=== PATIENT | male | born 1960 | race Caucasian/White ===

== ENCOUNTER 2019-12-07 21:56 | Emergency (ER) | payer BC, SELFPAY ==
--- NOTE | 2019-12-07 22:03 | XRR_ITS ---
PROCEDURE INFORMATION: Exam: XR Chest, 1 View Exam date and time: 12/07/2019 10:34 PM Age: 59 years old Clinical indication: Shortness of breath; Chest pain; Additional info: Chest pain/neck pain/arm tingling 6 hours, SOB TECHNIQUE: Imaging protocol: XR of the chest Views: 1 view. COMPARISON: No relevant prior studies available. FINDINGS: Lungs: No pneumonia or pulmonary edema. Pleural space: No pleural effusion or pneumothorax. Heart/Mediastinum: The cardiac silhouette is not enlarged when allowing for the portable AP nature of the radiograph and possible epicardial fat pads. Bones/joints: No acute osseous abnormality. XR/XR chest 1V portable [id number] IMPRESSION: No acute abnormality.
--- NOTE | 2019-12-07 22:03 | ECG_ITS ---
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 Measurements Intervals [place] Rate: 88 P: -38 [place]: 159 QRS: 37 QRSD: 105 T: 55 QT: 339 QTc: 411 Interpretive Statements SINUS RHYTHM No previous ECG available for comparison Electronically Signed On 12-08-2019 19:36:49 CDT by Deo Perea M.D. [id number]
[2019-12-07 22:16] LABS: Basophils # 0.1 10^3/uL (0.0-0.1); Basophils % 0.9 %; Eosinophils # 0.2 10^3/uL (0.0-0.8); Eosinophils % 2.4 %; Hematocrit 48.9 % (42.0-52.0); Lymphocytes % 32.4 %; Mean Corpuscular HGB Conc 30.7 g/dL (30.0-36.0); Mean Corpuscular Hemoglobin 29.1 pg (28.0-34.0); Mean Platelet Volume 9.9 fL (7.4-10.4); Monocytes # 0.6 10^3/uL (0.2-0.9); Monocytes % 5.9 %; Neutrophils # 5.38 10^3/uL (1.8-7.7); Neutrophils % 58.1 %; Nucleated Red Blood Cells % 0 %; Platelet Count 270 10^3/cmm (130-400); Red Blood Count 5.15 10^6/uL (4.1-5.3); Red Cell Distribution Width 14.2 % (12.1-15.1); White Blood Count 9.3 10^3/uL (4.0-10.0)
[2019-12-07 22:19] VITALS: BP 171/84; PULSE 89; RESP 16; TEMP 36.6; O2SAT 94; BMI 50.0
--- NOTE | 2019-12-07 22:38 | ED_ITS ---
HPI - Chest Pain General: Chief Complaint: Chest Pain Stated Complaint: CP/neck pain/arm tingling 6 hours; current SOB Time Seen by Provider: 12/07/19 22:23 Source: patient Mode of arrival: ambulatory Limitations: no limitations History of Present Illness: HPI narrative: 59-year-old male states he started having chest pain at 330. Patient states it lasted roughly 1 hour. He states he had some shortness of breath as well. Patient states he still some mild shortness of breath but is not had any chest pain for the last few hours. He denies any vomiting or diarrhea. Denies any worsening or improving factors. Does have a history of high blood pressure. He is not a diabetic. Denies any recent trips. MD complaint: chest pain Associated symptoms: Reports dyspnea; Deny abdominal pain, fever(s), nausea or vomiting Review of Systems Const: Denies: fever(s), chills, body aches or change in appetite Eyes: Denies: blurry vision or eye discomfort ENMT: Denies: throat pain or dental pain Card: Reports: chest pain Resp: Reports: dyspnea GI: Denies: abdominal pain, nausea, vomiting or diarrhea : Denies: dysuria Musc: Denies: neck pain or back pain Skin/Breast: Denies: rash Neuro: Denies: headache(s) Psych: Denies: depression Nba/Lymph: Denies: easy bruising All/Imm: Denies: urticaria Physical Exam Const: COMMON NORMALS: no acute distress and patient oriented x3 NUTRITIONAL APPEARANCE: obese HENMT: COMMON NORMALS: normocephalic and atraumatic HEAD & SCALP: normocephalic and atraumatic Eye: COMMON NORMALS: Equal, round and reactive pupils present and EOMs intact bilaterally PUPIL: Yes Equal, round and reactive pupils present Neck/C-Spine: COMMON NORMALS: full ROM and supple Chest: COMMONS NORMALS: normal inspection of the chest and normal palpation of entire chest wall Resp: COMMON NORMALS: normal respiratory effort, No retractions, No use of accessory muscles and clear to auscultation bilaterally AUSCULTATION: clear to auscultation bilaterally Cardio: COMMON NORMALS: regular rate, regular rhythm and No murmurs present (Cardio) RATE: regular rate RHYTHM: regular rhythm GI: COMMON NORMALS: Normal to inspection, nondistended, normoactive bowel sounds present, Soft to palpation, non-tender and no masses PALPATION: Yes Soft to palpation Extremity: COMMON NORMALS: normal to inspection and full ROM Neuro: COMMON NORMALS: patient oriented x3, moves all extremities and no focal motor deficits Psych: COMMON NORMALS: mental status grossly normal, Normal thought process present and cooperative THOUGHT PROCESS: Normal thought process present Skin: COMMON NORMALS: no rashes or lesions noted and no wounds GENERAL SKIN EXAM: no rashes or lesions noted Course Vital Signs: Vital signs: Vital Signs Temperature 97.9 F 12/07/19 22:19 Pulse Rate 84 12/08/19 00:49 Respiratory Rate 18 12/08/19 00:49 Blood Pressure 153/83 12/08/19 00:49 Pulse Oximetry 98 12/08/19 00:49 MDM - Chest Pain MDM Narrative: Medical decision making narrative: Patient presents here with chest pain that is atypical in nature. He has not had pain since this aftern oon. His initial and repeat troponin showed no change. CT here showed no signs of pulmonary embolism. His EKG here is normal as well. Patient is requesting discharge I feel he is stable for discharge. He is to follow-up to see PCP and likely needs a stress test outpatient. I informed him if he has return of his chest pain he is return to the ER immediately and he understands and agrees to plan. Lab Data: Labs: Lab Results 12/07/19 12/07/19 12/07/19 Range/Units 22:10 22:10 22:10 WBC 9.3 (4.0-10.0) 10^3/ uL RBC 5.15 (4.1-5.3) 10^6/u L Hgb 15.0 (11.7-16.6) g/dL Hct 48.9 (42.0-52.0) % MCV 95.0 H (80-94) fL MCH 29.1 (28.0-34.0) pg MCHC 30.7 (30.0-36.0) g/dL RDW 14.2 (12.1-15.1) % Plt Count 270 (130-400) 10^3/c mm MPV 9.9 (7.4-10.4) fL Neut % (Auto) 58.1 % Lymph % (Auto) 32.4 % [place] % (Auto) 5.9 % Eos % (Auto) 2.4 % Baso % (Auto) 0.9 % Neut # (Auto) 5.38 (1.8-7.7) 10^3/u L Lymph # (Auto) 3.0 (0.8-4.8) 10^3/u L [place] # (Auto) 0.6 (0.2-0.9) 10^3/u L Eos # (Auto) 0.2 (0.0-0.8) 10^3/u L Baso # (Auto) 0.1 (0.0-0.1) 10^3/u L Nucleated RBC % (a uto) 0 % Nucleated RBCs # 0.0 /100WBC D-Dimer (0-0.59) ug/mIFE U Sodium 141 (136-145) mmol/L Potassium 3.4 L (3.5-5.1) mmol/L Chloride 99 (98-107) mmol/L Carbon Dioxide 32 H (22-29) mmol/L Anion Gap 13.4 (5-19) BUN 18 (8-23) mg/dL Creatinine 0.9 (0.7-1.2) mg/dL GFR Calculation 86.1 L (90-130) mL/min Glucose 190 H (65-115) mg/dL Calculated Osmolal ity 294 (285-295) mOsm/k g Calcium 10.1 (8.5-10.5) mg/dL Total Bilirubin 0.3 (0.15-1.2) mg/dL AST 26 (0-40) U/L ALT 28 (0-41) U/L Alkaline Phosphata se 113 (40-130) IU/L Troponin T Baselin e 49 H (0-15) ng/L Troponin T 120 Min ho-chunk (0-15) ng/L Delta Troponin T (0-10) ABS# NT-Pro-B Natriuret Pep (0-125) pg/mL Total Protein 7.0 (6.6-8.7) g/dL Albumin 4.1 (3.5-5.2) g/dL Globulin 2.9 (1.3-4.6) g/dL 12/07/19 12/07/19 12/08/19 Range/Units 22:10 22:10 00:40 WBC (4.0-10.0) 10^3/ uL RBC (4.1-5.3) 10^6/u L Hgb (11.7-16.6) g/dL Hct (42.0-52.0) % MCV (80-94) fL MCH (28.0-34.0) pg MCHC (30.0-36.0) g/dL RDW (12.1-15.1) % Plt Count (130-400) 10^3/c mm MPV (7.4-10.4) fL Neut % (Auto) % Lymph % (Auto) % [place] % (Auto) % Eos % (Auto) % Baso % (Auto) % Neut # (Auto) (1.8-7.7) 10^3/u L Lymph # (Auto) (0.8-4.8) 10^3/u L [place] # (Auto) (0.2-0.9) 10^3/u L Eos # (Auto) (0.0-0.8) 10^3/u L Baso # (Auto) (0.0-0.1) 10^3/u L Nucleated RBC % (a uto) % Nucleated RBCs # /100WBC D-Dimer 0.89 H (0-0.59) ug/mIFE U Sodium (136-145) mmol/L Potassium (3.5-5.1) mmol/L Chloride (98-107) mmol/L Carbon Dioxide (22-29) mmol/L Anion Gap (5-19) BUN (8-23) mg/dL Creatinine (0.7-1.2) mg/dL GFR Calculation (90-130) mL/min Glucose (65-115) mg/dL Calculated Osmolal ity (285-295) mOsm/k g Calcium (8.5-10.5) mg/dL Total Bilirubin (0.15-1.2) mg/dL AST (0-40) U/L ALT (0-41) U/L Alkaline Phosphata se (40-130) IU/L Troponin T Baselin e (0-15) ng/L Troponin T 120 Min ho-chunk 51.71 H (0-15) ng/L Delta Troponin T 2.71 (0-10) ABS# NT-Pro-B Natriuret Pep 100 (0-125) pg/mL Total Protein (6.6-8.7) g/dL Albumin (3.5-5.2) g/dL Globulin (1.3-4.6) g/dL Imaging Data^: CXR: Attestation: I personally reviewed and interpreted this imaging study as follows: My impression: no acute abnormality EKG Data^: EKG 1: Attestation: I personally reviewed and interpreted this EKG as follows: EKG interpretation date: 12/07/19 EKG interpretation time: 22:23 Interpretation: nsr hr [address] or t wave abnormalities qrs 105 qtc 385 EKG 2: Attestation: I personally reviewed and interpreted this EKG as follows: EKG interpretation date: 12/08/19 EKG interpretation time: 00:41 Interpretation: nsr hr [address] or t wave abnormalities qrs 104 qtc 400 Discharge Plan Discharge Patient Disposition: Home Clinical Impression: Chest pain Qualifiers: Chest pain type: unspecified Qualified Code(s): R07.9 - Chest pain, unspecified Condition: Stable Discharge Orders: Discharge Order (Routine); Ordered 12/08/19 Ordered By: Deanna Piña Referrals: Dheeraj Grace MD [Primary Care Provider] - 1-3 days Discharge Diet: Advance as tolerated Discharge Activity: Resume usual activity Patient Instructions: Chest Pain (ED) Coding Level of Care Code ED Triple Valve Mechanic for Chg Fwd Exam Comprehensive
[2019-12-07 22:44] LABS: Alanine Aminotransferase 28 U/L (0-41); Albumin Level 4.1 g/dL (3.5-5.2); Alkaline Phosphatase 113 IU/L (40-130); Anion Gap 13.4 (5-19); Aspartate Amino Transferase 26 U/L (0-40); Blood Urea Nitrogen 18 mg/dL (8-23); Calcium 10.1 mg/dL (8.5-10.5); Carbon Dioxide 32 mmol/L (22-29); Chloride 99 mmol/L (98-107); Creatinine Clr Calc Pharmacy 152.1911; Globulin 2.9 g/dL (1.3-4.6); Glomerular Filtration Rate 86.1 mL/min (90-130); Glucose 190 mg/dL (65-115); Osmolality Calculated 294 mOsm/kg (285-295); Potassium 3.4 mmol/L (3.5-5.1); Sodium 141 mmol/L (136-145); Total Bilirubin 0.3 mg/dL (0.15-1.2)
[2019-12-07 22:46] LABS: Troponin(5th) Baseline 49 ng/L (0-15)
[2019-12-07 22:55] VITALS: BP 177/89; PULSE 84; RESP 17; O2SAT 94
[2019-12-07 22:58] LABS: D Dimer 0.89 ug/mIFEU (0-0.59)
--- NOTE | 2019-12-07 23:04 | CTR_ITS ---
PROCEDURE INFORMATION: Exam: CT Angiography Chest With Contrast Exam date and time: 12/07/2019 11:20 PM Age: 59 years old Clinical indication: Shortness of breath; Chest pain; Additional info: SOB TECHNIQUE: Imaging protocol: Computed tomographic angiography of the chest with intravenous contrast. 3D rendering (Not supervised by radiologist): MIP and/or 3D reconstructed images were created by the technologist. Radiation optimization: All CT scans at this facility use at least one of these dose optimization techniques: automated exposure control; mA and/or kV adjustment per patient size (includes targeted exams where dose is matched to clinical indication); or iterative reconstruction. Contrast material: OMNI 350; Contrast volume: 89 ml; Contrast route: INTRAVENOUS (IV); COMPARISON: CR XR chest 1V portable [id number] 12/07/2019 10:24 PM RADIATION DOSE METRICS: Total DLP (mGy-cm): 750.62 FINDINGS: Pulmonary arteries: The pulmonary arteries are adequately opacified for evaluation to the subsegmental level. There is no filling defect to suggest embolism. Aorta: The aorta is unremarkable. There is no aneurysm. Lungs: Lungs are clear. Pleural space: There is no pleural effusion or pneumothorax. Heart: The heart is unremarkable. There is no pericardial effusion. Lymph nodes: There is no mediastinal or hilar lymphadenopathy. Bones/joints: Bones are unremarkable. Soft tissues: The extrathoracic soft tissues are unremarkable. Other findings: Visible structures in the upper abdomen are unremarkable. CT/CT angio chest PE protcl [id number] IMPRESSION: No pulmonary embolism. Radiation Dose CTDIVOL = (mGy): DLP = 750.62 (mGy-cm)
--- NOTE | 2019-12-07 23:15 | PC.NURSE ---
REPORT GIVEN TO DEANN HOLCOMB ASSUMED CARE.
[2019-12-07 23:30] LABS: NT Pro B Type Natriuretic Pept 100 pg/mL (0-125)
[2019-12-07] MEDS: iohexol 350 mg/mL 100 mL Btl IV (23:49)
--- NOTE | 2019-12-08 00:03 | ECG_ITS ---
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 Measurements Intervals [place] Rate: 75 P: 66 [place]: 186 QRS: 50 QRSD: 104 T: 62 QT: 371 QTc: 417 Interpretive Statements SINUS RHYTHM Compared to ECG 12/07/2019 22:23:34 No significant changes Electronically Signed On 12-08-2019 20:03:34 CDT by Deo Perea M.D. [id number]
[2019-12-08 00:49] VITALS: BP 153/83; PULSE 84; RESP 18; O2SAT 98
[2019-12-08 01:00] LABS: Troponin 5 2HR 51.71 ng/L (0-15); Troponin 5 2HR Delta 2.71 ABS# (0-10)
[2019-12-08 01:11] VITALS: BP 139/70; PULSE 73; RESP 18; O2SAT 96
== END 2019-12-08 01:12 | disposition home or self-care (01) ==
PROVIDERS: Emergency Provider Emergency Medicine; PCP Family Medicine
DX: R07.9 Chest pain, unspecified (principal)
CPT/HCPCS: 12345; 36415; 71045; 71275; 80053; 83880; 84484; 85025; 85378; 93005; 99283; 99284; Q9967

== ENCOUNTER 2020-04-30 17:00 | Inpatient (IN) | payer OTHER, SELFPAY ==
[2020-04-30] VITALS (17 sets, daily range): BP systolic 119–166; BP diastolic 71–106; PULSE 87–154; RESP 12–34; TEMP 36.5–36.6; O2SAT 89–97; BMI 53.6
--- NOTE | 2020-04-30 17:03 | ECG_ITS ---
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 Measurements Intervals [place] Rate: 138 P: [place]: QRS: 40 QRSD: 115 T: 44 QT: 318 QTc: 483 Interpretive Statements ATRIAL FIBRILLATION WITH RAPID VENTRICULAR RESPONSE MODERATE INTRAVENTRICULAR CONDUCTION DELAY [110+ ms QRS DURATION] MODERATE ST DEPRESSION [0.05+ mV ST DEPRESSION] INTERPRETATION BASED ON A DEFAULT AGE OF 40 YEARS Compared to ECG 12/08/2019 00:41:59 Intraventricular conduction delay now present ST (T wave) deviation now present Sinus rhythm no longer present Electronically Signed On 04-30-2020 18:34:38 NEEDLE LOOM OPERATOR HELPER by Minh Bower M.D. [email or web address]/[id number] f
--- NOTE | 2020-04-30 17:03 | XRR_ITS ---
PROCEDURE INFORMATION: Exam: XR Chest, 1 View Exam date and time: 04/30/2020 5:50 PM Age: 59 years old Clinical indication: Chest pain; Additional info: Cp TECHNIQUE: Imaging protocol: XR of the chest Views: 1 view. COMPARISON: CR XR chest 1V portable [id number] 12/07/2019 10:24 PM FINDINGS: Lungs: Under inflated lungs. No focal airspace opacity. Pleural spaces: Unremarkable. No pleural effusion. No pneumothorax. Heart/Mediastinum: Mild cardiac enlargement. Bones/joints: Unremarkable. XR/XR chest 1V portable [id number] IMPRESSION: 1. No acute chest abnormality. 2. No change from comparison 12/07/2019.
--- NOTE | 2020-04-30 17:54 | ED_ITS ---
HPI - Arrhythmia/Palpitations General: Chief Complaint: Arrhythmia/Palpitations Stated Complaint: Back Pain, Tightness in Chest, SOB Time Seen by Provider: 04/30/20 17:47 Source: patient Mode of arrival: ambulatory Limitations: no limitations History of Present Illness: HPI narrative: 59-year-old male states that over the last few days he has noticed increasing swelling in his legs and has had exertional dyspnea. He states he had palpitations as well and he went to see her urgent care and was told that he is in A. fib over there. He has no history of atrial fibrillation. He is A. fib with RVR here with heart rate into the 150s. He states that he feels like he has been gaining lots of weight and is having increasing dyspnea. He denies any chest pain. Denies any vomiting or diarrhea. He denies any cough or fever. Associated symptoms: Deny nausea or vomiting Review of Systems Const: Denies: fever(s), chills, body aches or change in appetite Eyes: Denies: blurry vision or eye discomfort ENMT: Denies: throat pain or dental pain Card: Reports: palpitations and irregular heart rhythm Resp: Reports: dyspnea GI: Denies: abdominal pain, nausea, vomiting or diarrhea : Denies: dysuria Musc: Reports: extremity swelling Skin/Breast: Denies: rash Neuro: Denies: headache(s) Psych: Denies: depression Nba/Lymph: Denies: easy bruising All/Imm: Denies: urticaria PFS ED PFSH: Medical History (Updated 04/30/20 @ 15:22 by TISH Velez) Atrial fibrillation with rapid ventricular response Social History (Updated 04/30/20 @ 17:55 by Cayetano Jim RN) Smoking and tobacco status: former smoker Alcohol intake: never Substance/Drug Use: never Physical Exam Const: COMMON NORMALS: no acute distress, patient oriented x3 and healthy appearing HENMT: COMMON NORMALS: normocephalic and atraumatic HEAD & SCALP: normocephalic and atraumatic Eye: COMMON NORMALS: Equal, round and reactive pupils present and EOMs intact bilaterally PUPIL: Yes Equal, round and reactive pupils present Neck/C-Spine: COMMON NORMALS: full ROM and supple Chest: COMMONS NORMALS: normal inspection of the chest and normal palpation of entire chest wall Resp: COMMON NORMALS: normal respiratory effort, No retractions, No use of accessory muscles and clear to auscultation bilaterally AUSCULTATION: clear to auscultation bilaterally Cardio: COMMON NORMALS: No murmurs present (Cardio) RATE: tachycardic RHYTHM: abnormal rhythm irregularly irregular GI: COMMON NORMALS: Normal to inspection, nondistended, normoactive bowel sounds present, Soft to palpation, non-tender and no masses PALPATION: Yes Soft to palpation Extremity: COMMON NORMALS: normal to inspection and full ROM OTHER: 2+edema to lower ext. Neuro: COMMON NORMALS: patient oriented x3, moves all extremities and no focal motor deficits Psych: COMMON NORMALS: mental status grossly normal, Normal thought process present and cooperative THOUGHT PROCESS: Normal thought process present Skin: COMMON NORMALS: no rashes or lesions noted and no wounds GENERAL SKIN EXAM: no rashes or lesions noted Course Vital Signs: Vital signs: Vital Signs Temperature 97.7 F 04/30/20 17:48 Pulse Rate 112 H 04/30/20 20:29 Respiratory Rate 18 04/30/20 20:29 Blood Pressure 152/104 04/30/20 20:29 Pulse Oximetry 94 04/30/20 20:29 MDM - Arrhythmia/Palpitations MDM Narrative: Medical decision making narrative: Williams presents here with A. maria t with RVR. Patient's required Cardizem drip here. He also has a slightly elevated BNP with edema and was given Lasix. CT shows no signs of pulmonary embolism. Patient's had no chest pain here. I spoke to hospitalist and will admit to the cardiac stepdown unit on Cardizem drip. Lab Data: Labs: Lab Results 04/30/20 04/30/20 04/30/20 Range/Units 18:22 18:22 18:22 WBC 6.1 (4.0-10.0) 10^3/ uL RBC 5.37 H (4.1-5.3) 10^6/u L Hgb 15.0 (11.7-16.6) g/dL Hct 50.1 (42.0-52.0) % MCV 93.3 (80-94) fL MCH 27.9 L (28.0-34.0) pg MCHC 29.9 L (30.0-36.0) g/dL RDW 13.9 (12.1-15.1) % Plt Count 233 (130-400) 10^3/c mm MPV 10.6 H (7.4-10.4) fL Neut % (Auto) 61.8 % Lymph % (Auto) 26.9 % [place] % (Auto) 8.8 % Eos % (Auto) 1.5 % Baso % (Auto) 0.8 % Neut # (Auto) 3.74 (1.8-7.7) 10^3/u L Lymph # (Auto) 1.6 (0.8-4.8) 10^3/u L [place] # (Auto) 0.5 (0.2-0.9) 10^3/u L Eos # (Auto) 0.1 (0.0-0.8) 10^3/u L Baso # (Auto) 0.1 (0.0-0.1) 10^3/u L Nucleated RBC % (a uto) 0 % Nucleated RBCs # 0.0 /100WBC PT Cancelled INR Cancelled D-Dimer Cancelled Sodium Cancelled Potassium Cancelled Chloride Cancelled Carbon Dioxide Cancelled Anion Gap Cancelled BUN Cancelled Creatinine Cancelled GFR Calculation Cancelled Glucose Cancelled Calculated Osmolal ity Cancelled Calcium Cancelled Total Bilirubin Cancelled AST Cancelled ALT Cancelled Alkaline Phosphata se Cancelled Troponin T Baselin e NT-Pro-B Natriuret Pep Cancelled Total Protein Cancelled Albumin Cancelled Globulin Cancelled 04/30/20 04/30/20 04/30/20 Range/Units 18:22 18:47 18:47 WBC (4.0-10.0) 10^3/ uL RBC (4.1-5.3) 10^6/u L Hgb (11.7-16.6) g/dL Hct (42.0-52.0) % MCV (80-94) fL MCH (28.0-34.0) pg MCHC (30.0-36.0) g/dL RDW (12.1-15.1) % Plt Count (130-400) 10^3/c mm MPV (7.4-10.4) fL Neut % (Auto) % Lymph % (Auto) % [place] % (Auto) % Eos % (Auto) % Baso % (Auto) % Neut # (Auto) (1.8-7.7) 10^3/u L Lymph # (Auto) (0.8-4.8) 10^3/u L [place] # (Auto) (0.2-0.9) 10^3/u L Eos # (Auto) (0.0-0.8) 10^3/u L Baso # (Auto) (0.0-0.1) 10^3/u L Nucleated RBC % (a uto) % Nucleated RBCs # /100WBC PT INR D-Dimer Sodium 142 Potassium 3.0 L Chloride 97 L Carbon Dioxide 34 H Anion Gap 14.0 BUN 11 Creatinine 0.7 GFR Calculation 115.0 Glucose 76 Calculated Osmolal ity 292 Calcium 9.6 Total Bilirubin 0.6 AST 37 ALT 31 Alkaline Phosphata se 120 Troponin T Baselin e Cancelled 61 H NT-Pro-B Natriuret Pep 665 H Total Protein 7.0 Albumin 4.1 Globulin 2.9 04/30/20 Range/Units 18:47 WBC (4.0-10.0) 10^3/ uL RBC (4.1-5.3) 10^6/u L Hgb (11.7-16.6) g/dL Hct (42.0-52.0) % MCV (80-94) fL MCH (28.0-34.0) pg MCHC (30.0-36.0) g/dL RDW (12.1-15.1) % Plt Count (130-400) 10^3/c mm MPV (7.4-10.4) fL Neut % (Auto) % Lymph % (Auto) % [place] % (Auto) % Eos % (Auto) % Baso % (Auto) % Neut # (Auto) (1.8-7.7) 10^3/u L Lymph # (Auto) (0.8-4.8) 10^3/u L [place] # (Auto) (0.2-0.9) 10^3/u L Eos # (Auto) (0.0-0.8) 10^3/u L Baso # (Auto) (0.0-0.1) 10^3/u L Nucleated RBC % (a uto) % Nucleated RBCs # /100WBC PT 12.60 INR 0.92 D-Dimer 1.43 H Sodium Potassium Chloride Carbon Dioxide Anion Gap BUN Creatinine GFR Calculation Glucose Calculated Osmolal ity Calcium Total Bilirubin AST ALT Alkaline Phosphata se Troponin T Baselin e NT-Pro-B Natriuret Pep Total Protein Albumin Globulin Imaging Data^: CXR: Attestation: I personally reviewed and interpreted this imaging study as follows: Radiologist's impression: [facility] [place] [address] XRay Report Signed Patient: Williams Ross Unit #: [id number] : 1960 Age/Sex: 59 / M ADM Date: 04/30/20 Loc: ER Room/Bed: Attending Dr: Ordering Provider/Ordering MD: Deanna Piña MD Date of Service: 04/30/20 Procedure(s): XR chest 1V portable [id number] Accession Number(s): [id number] Report Number: [id number] PROCEDURE INFORMATION: Exam: XR Chest, 1 View Exam date and time: 04/30/2020 5:50 PM Age: 59 years old Clinical indication: Chest pain; Additional info: Cp TECHNIQUE: Imaging protocol: XR of the chest Views: 1 view. COMPARISON: CR XR chest 1V portable [id number] 12/07/2019 10:24 PM FINDINGS: Lungs: Under inflated lungs. No focal airspace opacity. Pleural spaces: Unremarkable. No pleural effusion. No pneumothorax. Heart/Mediastinum: Mild cardiac enlargement. Bones/joints: Unremarkable. XR/XR chest 1V portable [id number] IMPRESSION: 1. No acute chest abnormality. 2. No change from comparison 12/07/2019. CT Chest: Attestation: I personally reviewed and interpreted this imaging study as follows: Radiologist's impression: [facility] [address] [place] [address] CT Scan Report Signed Patient: Williams Ross Unit #: [id number] : 1960 Age/Sex: 59 / M ADM Date: 04/30/20 Loc: ER Room/Bed: Attending Dr: Ordering Provider/Ordering MD: Deanna Piña MD Date of Service: 04/30/20 Procedure(s): CT angio chest PE protcl [id number] Accession Number(s): [id number] Report Number: [id number] PROCEDURE INFORMATION: Exam: CT Angiography Chest With Contrast Exam date and time: 04/30/2020 7:40 PM Age: 59 years old Clinical indication: Patient HX: Ble swelling, exertional dyspnea, elev d-dimer, afib, tachy; Additional info: SOB TECHNIQUE: Imaging protocol: Computed tomographic angiography of the chest with contrast. 3D rendering (Not supervised by radiologist): MIP and/or 3D reconstructed images were created by the technologist. Radiation optimization: All CT scans at this facility use at least one of these dose optimization techniques: automated exposure control; mA and/or kV adjustment per patient size (includes targeted exams where dose is matched to clinical indication); or iterative reconstruction. Contrast material: OMNI 350; Contrast volume: 78 ml; Contrast route: INTRAVENOUS (IV); COMPARISON: CT angio chest PE protcl [id number] 12/07/2019 11:34 PM RADIATION DOSE METRICS: Total DLP (mGy-cm): 620.56 FINDINGS: Pulmonary arteries: Normal. No pulmonary emboli. Aorta: Unremarkable. No aortic aneurysm. No aortic dissection. Lungs: Moderate emphysema. No consolidation. Minimal ground-glass foci of the inferior left lower lobe, most likely mild atelectasis. No endobronchial lesion. Pleural spaces: Unremarkable. No pneumothorax. No pleural effusion. Heart: Unremarkable. No cardiomegaly. No pericardial effusion. Lymph nodes: Unremarkable. No enlarged lymph nodes. Bones/joints: Unremarkable. No acute fracture. Soft tissues: Unremarkable. CT/CT angio chest PE protcl [id number] IMPRESSION: 1. Negative for pulmonary embolism. 2. No focal acute pulmonary disease. 3. No significant change from prior on 12/07/2019 other than minimal increase in minor left lower lobe posterior ground-glass foci, subsegmental atelectasis favored. EKG Data^: EKG 1: Attestation: I personally reviewed and interpreted this EKG as follows: EKG interpretation date: 04/30/20 EKG interpretation time: 17:44 Interpretation: afib with rvr hr [address] or t wave abnormalities qrs 115 qtc 339 Other EKG comments: Chest X-Ray 04/30/20 17:03 IMPRESSION: 1. No acute chest abnormality. 2. No change from comparison 12/07/2019. Chest CTA 04/30/20 19:11 IMPRESSION: 1. Negative for pulmonary embolism. 2. No focal acute pulmonary disease. 3. No significant change from prior on 12/07/2019 other than minimal increase in minor left lower lobe posterior ground-glass foci, subsegmental atelectasis favored. Radiation Dose CTDIVOL = (mGy): DLP = 620.56 (mGy-cm) EKG 2: Attestation: I personally reviewed and interpreted this EKG as follows: EKG interpretation date: 04/30/20 EKG interpretation time: 18:10 Interpretation: afib with rvr hr [address] or t wave abnormalities qrs 100 qtc 410 Other EKG comments: Chest X-Ray 04/30/20 17:03 IMPRESSION: 1. No acute chest abnormality. 2. No change from comparison 12/07/2019. Chest CTA 04/30/20 19:11 IMPRESSION: 1. Negative for pulmonary embolism. 2. No focal acute pulmonary disease. 3. No significant change from prior on 12/07/2019 other than minimal increase in minor left lower lobe posterior ground-glass foci, subsegmental atelectasis favored. Radiation Dose CTDIVOL = (mGy): DLP = 620.56 (mGy-cm) Discharge Plan Discharge Prescriptions: No Action ibuprofen [IBU] 400 mg tablet 800 mg PO DAILY@06 RF: 0 Tylenol Arthritis Pain 650 mg Tablet Extended Release 1,950 mg PO DAILY@06 RF: 0 lisinopril-hydrochlorothiazide 20-25 mg tablet 1 tab PO DAILY@06 RF: 0 Dawson Back and Body 500-32.5 mg Tablet 3 tab PO DAILY@06 RF: 0 Coding Level of Care Code ED Patient Access Coordinator for Chg Fwd Exam Comprehensive
[2020-04-30 18:35] LABS: Basophils # 0.1 10^3/uL (0.0-0.1); Basophils % 0.8 %; Eosinophils # 0.1 10^3/uL (0.0-0.8); Eosinophils % 1.5 %; Hematocrit 50.1 % (42.0-52.0); Lymphocytes # 1.6 10^3/uL (0.8-4.8); Lymphocytes % 26.9 %; Mean Corpuscular HGB Conc 29.9 g/dL (30.0-36.0); Mean Corpuscular Hemoglobin 27.9 pg (28.0-34.0); Mean Corpuscular Volume 93.3 fL (80-94); Mean Platelet Volume 10.6 fL (7.4-10.4); Monocytes # 0.5 10^3/uL (0.2-0.9); Monocytes % 8.8 %; Neutrophils # 3.74 10^3/uL (1.8-7.7); Neutrophils % 61.8 %; Nucleated Red Blood Cells % 0 %; Platelet Count 233 10^3/cmm (130-400); Red Blood Count 5.37 10^6/uL (4.1-5.3); Red Cell Distribution Width 13.9 % (12.1-15.1); White Blood Count 6.1 10^3/uL (4.0-10.0)
--- NOTE | 2020-04-30 19:03 | ECG_ITS ---
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 Measurements Intervals [place] Rate: 143 P: VA: QRS: 127 QRSD: 100 T: 2 QT: 327 QTc: 505 Interpretive Statements ATRIAL FIBRILLATION WITH RAPID VENTRICULAR RESPONSE PATTERN CONSISTENT WITH PULMONARY DISEASE POSSIBLE RIGHT VENTRICULAR HYPERTROPHY [SOME/ALL OF: PROMINENT R IN V1, LATE TRANSITION, RAD, GE[place]IE, SSS] POSSIBLE INFERIOR MYOCARDIAL INFARCTION , PROBABLY OLD [30 ms Q WAVE IN II/aVF] Compared to ECG 04/30/2020 17:44:48 Atrial abnormality now present Myocardial infarct finding now present Intraventricular conduction delay no longer present ST (T wave) deviation no longer present Electronically Signed On 04-30-2020 18:39:31 WRAPPER CASER by Minh Bower M.D. [id number]
[2020-04-30 19:04] LABS: INR 0.92 (0.8-1.2)
[2020-04-30 19:07] LABS: D Dimer 1.43 ug/mIFEU (0-0.59)
[2020-04-30 19:09] LABS: Troponin(5th) Baseline 61 ng/L (0-15)
--- NOTE | 2020-04-30 19:11 | CTR_ITS ---
PROCEDURE INFORMATION: Exam: CT Angiography Chest With Contrast Exam date and time: 04/30/2020 7:40 PM Age: 59 years old Clinical indication: Patient HX: Ble swelling, exertional dyspnea, elev d-dimer, afib, tachy; Additional info: SOB TECHNIQUE: Imaging protocol: Computed tomographic angiography of the chest with contrast. 3D rendering (Not supervised by radiologist): MIP and/or 3D reconstructed images were created by the technologist. Radiation optimization: All CT scans at this facility use at least one of these dose optimization techniques: automated exposure control; mA and/or kV adjustment per patient size (includes targeted exams where dose is matched to clinical indication); or iterative reconstruction. Contrast material: OMNI 350; Contrast volume: 78 ml; Contrast route: INTRAVENOUS (IV); COMPARISON: CT angio chest PE protcl [id number] 12/07/2019 11:34 PM RADIATION DOSE METRICS: Total DLP (mGy-cm): 620.56 FINDINGS: Pulmonary arteries: Normal. No pulmonary emboli. Aorta: Unremarkable. No aortic aneurysm. No aortic dissection. Lungs: Moderate emphysema. No consolidation. Minimal ground-glass foci of the inferior left lower lobe, most likely mild atelectasis. No endobronchial lesion. Pleural spaces: Unremarkable. No pneumothorax. No pleural effusion. Heart: Unremarkable. No cardiomegaly. No pericardial effusion. Lymph nodes: Unremarkable. No enlarged lymph nodes. Bones/joints: Unremarkable. No acute fracture. Soft tissues: Unremarkable. CT/CT angio chest PE protcl [id number] IMPRESSION: 1. Negative for pulmonary embolism. 2. No focal acute pulmonary disease. 3. No significant change from prior on 12/07/2019 other than minimal increase in minor left lower lobe posterior ground-glass foci, subsegmental atelectasis favored. Radiation Dose CTDIVOL = (mGy): DLP = 620.56 (mGy-cm)
[2020-04-30 19:25] LABS: Alanine Aminotransferase 31 U/L (0-41); Albumin Level 4.1 g/dL (3.5-5.2); Alkaline Phosphatase 120 IU/L (40-130); Aspartate Amino Transferase 37 U/L (0-40); Blood Urea Nitrogen 11 mg/dL (8-23); Calcium 9.6 mg/dL (8.5-10.5); Carbon Dioxide 34 mmol/L (22-29); Chloride 97 mmol/L (98-107); Globulin 2.9 g/dL (1.3-4.6); Glucose 76 mg/dL (65-115); NT Pro B Type Natriuretic Pept 665 pg/mL (0-125); Osmolality Calculated 292 mOsm/kg (285-295); Sodium 142 mmol/L (136-145); Total Bilirubin 0.6 mg/dL (0.15-1.2)
[2020-04-30] MEDS: FUROsemide 10 mg/mL SDV 4mL 40 MG IVP (19:41)
[2020-04-30] MEDS: iohexol 350 mg/mL 100 mL Btl IV (19:56)
--- NOTE | 2020-04-30 20:45 | PM.HP ---
Providers/Chief Complaint Chief Complaint: Back Pain, Tightness in Chest, SOB History of Present Illness Williams Ross is a 59 year old male who does not have significant past medical history other than hypertension presented today with chief complaint of abdominal bloating and shortness of breath. Creatinine stating that his symptoms started 2 to 3 months ago with swelling of lower extremities, it has gradually gotten worse he has not started Lasix nor seen a physician. He is endorsing orthopnea, PND hypersomnolence in the morning excessive snoring at night, intermittent chest discomfort which she is describing as pressure-like sensation, last episode was 2 days ago when he was working at his desk, that episode lasted for about 30 minutes but relieved with taking Tums. He is endorsing gaining 20 and 30 pounds, is very uncomfortable with abdominal bloating. He has never undergone any screening colonoscopies in the past. No history of CO CHF stroke or cancer. At home he takes medications for his back pain and hypertension. Diagnosis in the ER revealed new onset onset A. fib RVR currently on Cardizem drip running at 15 mg/h initially he was hypertensive blood pressure improved after Cardizem multiple boluses, he was saturating well on room air, no acute respiratory distress I have requested magnesium and TSH level BNP 665 clinical signs of fluid overload potassium 3.0 which I would replete, high D-dimer noted no signs of PE on CTA chest No signs of pneumonia as well Review of Systems Const: Denies: fever(s) or chills Eyes: Denies: change in vision ENMT: Denies: throat pain Card: Reports: chest pain, palpitations, swelling of feet/ankles, dyspnea on exertion and orthopnea Resp: Reports: dyspnea and non-productive cough GI: Reports: early satiety, bloating and GI cramping; Denies: abdominal pain : Denies: flank pain Musc: Reports: muscle cramps Skin/Breast: Reports: new lesions (Excoriation due to excessive scratching) Neuro: Denies: headache(s) or weakness in extremities Psych: Reports: sleeping more; Denies: anxiety Endo: Reports: cold intolerance and hot flashes; Denies: polyuria Nba/Lymph: Denies: easy bruising All/Imm: Denies: urticaria Medications/Allergies Home Medications Medication Instructions Recorded Confirmed Last Taken Type acetaminophen [Tylenol Arthritis 1,950 mg PO DAILY@06 01/31/21 01/31/21 01/31/21 History Pain] aspirin-caffeine [Dawson Back and 3 tab PO DAILY@04/30/20 04/30/20 04/30/20 History Body] ibuprofen 400 mg tablet 800 mg PO DAILY@04/30/20 04/30/20 04/30/20 History lisinopril-hydrochlorothiazide 1 tab PO DAILY@04/30/20 04/30/20 04/30/20 History Allergies Allergy/AdvReac Type Severity Reaction Status Date / Time No Known Allergies Allergy Verified 04/30/20 14:27 PFSH Acute PFSH: Medical History Arthritis Atrial fibrillation with rapid ventricular response Former smoker Hypertension Retained myringotomy tube in left ear Surgical History H/O hernia repair S/P left knee arthroscopy Family History (Updated 04/30/20 @ 21:53 by Barby Villa MD) Mother Cancer Liver cancer Social History Smoking and tobacco status: former smoker Alcohol intake: never Substance/Drug Use: never Vitals/I&O/Wt Last Vital Signs Temp 97.7 F 04/30/20 17:48 Pulse 112 H 04/30/20 20:29 Resp 18 04/30/20 20:29 BP 152/104 04/30/20 20:29 Pulse Ox 94 04/30/20 20:29 04/30/20 04/30/20 04/30/20 06:59 14:59 22:59 Intake Total 6.333 / 6.333 Balance 6.333 / 6.333 Weight last 48 hrs Weight 194.591 kg Physical Exam Narrative: EXAM NARRATIVE: Pleasant middle-age male morbidly obese Saturating well on room air Clinical signs of fluid overload variable S1-S2 No acute respite distress Abdomen bloated soft no signs of peritonitis, nontender Multiple skin excoriation noticed secondary to scratching no signs of cellulitis Low extremity 3+ pitting edema No neurological deficit EOMI, PERRLA GCS 15 No joint swelling Appropriate mood and affect at the bedside Data : 04/30/20 18:22 04/30/20 18:47 A&P Assessment and plan (1) Atrial fibrillation with rapid ventricular response: New onset atrial fibrillation with RVR No ischemic or infarctive changes, troponin noted which most likely are high due to tachyarrhythmia No active chest pain We will check TSH and magnesium level potassium to be repleted Most likely cause of atrial fibrillation is untreated/undiagnosed sleep apnea/obesity hypoventilation Currently on Cardizem drip 50 mg/h [id number] we will start him on Eliquis 5 mg twice a day, my next choice will be digoxin if his heart rate stays above 110, for persistent atrial fibrillation rhythm he might need class Ic or class III antiarrhythmic Status: Acute (2) Hypokalemia: Potassium. Most likely secondary to use of hydrochlorothiazide We will keep him on daily potassium regimen with Lasix Status: Acute (3) New onset of congestive heart failure: New onset CHF Plan echo in the morning no signs of murmur or active CO Likely secondary to untreated sleep apnea and tachyarrhythmia Start him on Lasix 40 mg daily as he is na?ve to Lasix PE ruled out Status: Acute (4) Morbid obesity due to excess calories: Status: Acute (5) Sleep apnea with hypersomnolence: Would recommend outpatient sleep study overnight I would do pulse oximetry study as well Patient has endorse excessive snoring and hypersomnolence in the daytime, is stating he would sleep while having a conversation Status: Acute Additional A&P Information Cardiac diet DVT prophylaxis not indicated Full code Will need outpatient screening colonoscopy as well Attestations Medical Necessity Statement*: Anticipating stay in the hospital cross more than 2 midnights currently need investigation for new onset A. fib RVR and new onset CHF exacerbation, currently on Cardizem drip 15 mg/h Time Spent in Patient Care: (>than 50% of time spent in counselling and/or direct pt care on unit). 50mins Coding Level of Care Code Acute Semiconductor Engineer for Chg Fwd Diagnoses Atrial fibrillation with rapid ventricular response I48.91 Hypokalemia E87.6 New onset of congestive heart failure I50.9 Morbid obesity due to excess calories E66.01 Sleep apnea with hypersomnolence G47.10; G47.30
[2020-04-30 21:16] LABS: Troponin 5 2HR 63.46 ng/L (0-15); Troponin 5 2HR Delta 2.46 ABS# (0-10)
[2020-04-30 21:24] LABS: Magnesium 2.1 mg/dL (1.7-2.3); Thyroid Stimulating Hormone 1.66 uIU/mL (0.27-4.20)
[2020-04-30 22:56] LABS: Estmated Average Glucose 123; Hemoglobin A1C 5.9 % (4.0-6.0)
--- NOTE | 2020-04-30 23:03 | ECG_ITS ---
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 Measurements Intervals [place] Rate: 102 P: -71 VT: 179 QRS: 66 QRSD: 116 T: 83 QT: 383 QTc: 500 Interpretive Statements ATRIAL FIBRILLATION WITH RAPID VENTRICULAR RATE MODERATE INTRAVENTRICULAR CONDUCTION DELAY [110+ ms QRS DURATION] Compared to ECG 04/30/2020 18:10:46 Intraventricular conduction delay now present Myocardial infarct finding no longer present Electronically Signed On 05-01-2020 17:15:11 WINDOWS MOBILE DEVELOPER by Minh Bower M.D. [id number]
[2020-05-01] VITALS (66 sets, daily range): BP systolic 119–157; BP diastolic 65–98; PULSE 70–152; RESP 12–22; TEMP 36.3–36.9; O2SAT 72–95
--- NOTE | 2020-05-01 | CTR_ITS ---
PROCEDURE INFORMATION: Exam: CT Abdomen And Pelvis With Contrast Exam date and time: 05/01/2020 8:33 PM Age: 59 years old Clinical indication: Bloating; Additional info: Distention, dicomfort TECHNIQUE: Imaging protocol: Computed tomography of the abdomen and pelvis with contrast. Radiation optimization: All CT scans at this facility use at least one of these dose optimization techniques: automated exposure control; mA and/or kV adjustment per patient size (includes targeted exams where dose is matched to clinical indication); or iterative reconstruction. Contrast material: OMNI 300; Contrast volume: 95 ml; Contrast route: INTRAVENOUS (IV); COMPARISON: No relevant prior studies available. RADIATION DOSE METRICS: Total DLP (mGy-cm): 1945.99 FINDINGS: Lungs: Bibasilar atelectasis versus infiltrate. Liver: Normal. No mass. Gallbladder and bile ducts: Normal. No calcified stones. No ductal dilation. Pancreas: Normal. No ductal dilation. Spleen: Normal. No splenomegaly. Adrenal glands: Normal. No mass. Kidneys and ureters: Normal. No hydronephrosis. Stomach and bowel: Diverticulosis without diverticulitis. Appendix: No evidence of appendicitis. Intraperitoneal space: Unremarkable. No free air. No significant fluid collection. Vasculature: Unremarkable. No abdominal aortic aneurysm. Lymph nodes: Unremarkable. No enlarged lymph nodes. Urinary bladder: Unremarkable as visualized. Reproductive: Unremarkable as visualized. Bones/joints: Unremarkable. No acute fracture. Soft tissues: Unremarkable. CT/CT abdomen pelvis w con* [id number] IMPRESSION: 1. Negative for acute inflammatory process in the abdomen or pelvis. 2. Bibasilar atelectasis versus infiltrate. 3. Diverticulosis without diverticulitis. Radiation Dose CTDIVOL = (mGy): DLP = 1945.99 (mGy-cm)
[2020-05-01] MEDS: apixaban 5 mg Tablet PO ×3 (02:01→18:19)
[2020-05-01 02:05] LABS: Troponin 5 6HR 62.33 ng/L (0-15); Troponin 5 6HR Delta 1.33 ng/L (0-12)
[2020-05-01] MEDS: potassium chloride ER 20 mEq Tablet 40 MEQ PO (02:08)
[2020-05-01 04:02] LABS: Basophils # 0.1 10^3/uL (0.0-0.1); Basophils % 1.1 %; Eosinophils # 0.1 10^3/uL (0.0-0.8); Eosinophils % 1.7 %; Hematocrit 50.8 % (42.0-52.0); Hemoglobin 14.9 g/dL (11.7-16.6); Lymphocytes # 1.4 10^3/uL (0.8-4.8); Lymphocytes % 18.6 %; Mean Corpuscular HGB Conc 29.3 g/dL (30.0-36.0); Mean Corpuscular Hemoglobin 27.7 pg (28.0-34.0); Mean Corpuscular Volume 94.6 fL (80-94); Mean Platelet Volume 11.1 fL (7.4-10.4); Monocytes # 0.5 10^3/uL (0.2-0.9); Monocytes % 6.5 %; Neutrophils # 5.41 10^3/uL (1.8-7.7); Nucleated Red Blood Cells % 0 %; Platelet Count 249 10^3/cmm (130-400); Red Blood Count 5.37 10^6/uL (4.1-5.3); Red Cell Distribution Width 13.8 % (12.1-15.1); White Blood Count 7.5 10^3/uL (4.0-10.0)
[2020-05-01] MEDS: digoxin 250 mcg/ml INJ 2 mL 500 MCG IVP (04:02)
[2020-05-01 04:21] LABS: Blood Urea Nitrogen 9 mg/dL (8-23); Calcium 9.7 mg/dL (8.5-10.5); Carbon Dioxide 37 mmol/L (22-29); Chloride 97 mmol/L (98-107); Glucose 113 mg/dL (65-115); Osmolality Calculated 297 mOsm/kg (285-295); Sodium 144 mmol/L (136-145)
[2020-05-01 04:26] LABS: Anion Gap 13.2 (5-19); Potassium 3.2 mmol/L (3.5-5.1)
--- NOTE | 2020-05-01 09:21 | PC.CHAP ---
Pastoral Care Encounter/Spiritual Assessment Type of Contact [] Declined loss prevention analyst visit [] Patient/Family/Request visit [] Outpatient visit [] Follow-up visit [] Physician referral [] Code/Alert [x] Routine visit [] Staff referral [] Actively dying [] Patient sleeping [] Family support [] [] Out of room [] Palliative care [] [] Receiving care in room [] Pre-surgical visit [] Trauma [] Long length of stay [] ICU visit [] Other: Relational/Emotional Strength [] Patient feels connected with others/family/visitors/staff [] Distress [] Loneliness/isolation [] Abandonment Spirituality of Patient [] Person of Kiana [] Attends Hindu of their Kiana [] Believes in Prayer [] Reads Bible or Oriental Orthodox materials [] There are Spiritual issues to be addressed Tower Truck Driver Interventions [x] Prayer [x] Active listening [x] Non-anxious presence [x] Spiritual/emotional support [] Crisis/trauma care [] Spiritual counseling [] Bereavement support [] Provided bereavement packet [] Provided Bible/devotional materials [] Provided toy/stuffed animal, coloring book to patient or family member [] Provided Communion [] Anointing/[place] [] Salvation [x] Completed spiritual assessment [] Other: Impact on Illness or Injury [] Angry [] Fearful [] Anxious [] Often cries [] Exhaustion [] Unable to work [] Unable to attend episcopalian [] Unable to walk/stand [] Unable to read [] Unable to drive [] Unable to eat/drink [] Unable to sleep [] Unable to be with family [] Patient intubated [] Other: Summary leg swelling- bloating- and discomfort, patient resting knowing all will be addressed Time spent with patient 10 min
[2020-05-01] MEDS: FUROsemide 40 mg Tablet PO (09:44)
[2020-05-01] MEDS: digoxin 250 mcg Tablet PO (09:45)
[2020-05-01] MEDS: potassium chloride ER 20 mEq Tablet PO (09:45)
[2020-05-01] MEDS: FUROsemide 10 mg/mL SDV 2mL 20 MG IVP (12:26)
[2020-05-01] MEDS: metoprolol tartrate 25 mg Tablet PO ×2 (12:27→19:23)
--- NOTE | 2020-05-01 15:26 | PC.NURSE ---
Lethargy noted Pt has been lethargic, drowsy. 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 Noted SpO2 is at 88% on 3.5 L/nasl cannula. Notified doctor and will order blood gas and pulse oxemtry overnight at hrs of sleeping checks.
[2020-05-01 16:15] LABS: ABG PH Result 7.32 (7.35-7.45); Arterial Blood Gas Hematocrit 45.9 % (42-52); Base Excess ABG 14.8 mmol/L (-2.0-2.0); Blood Gas Allen Test Pos; Blood Gas Sample Site Radial, left; Blood Gas Sample Type Arterial; HCO3 ABG 45.9 mmol/L (22-26); Oxygen Device NC; PO2 ABG 66.7 mmHg (80.0-100.0)
[2020-05-01 16:16] LABS: ABG PCO2 89.9 mmHg (35-45)
--- NOTE | 2020-05-01 16:30 | PC.NURSE ---
Educated pt and regarding the importance of keeping his BIPAP on Instructed pt he needs to keep his BIPAP on especially tonight due to his blood gas result and the doctor order. Re-educated pt and what the BIPAP do to help with his afib w/rvr and chf. pt and verbalizes understanding.
--- NOTE | 2020-05-01 18:11 | XRR_ITS ---
PROCEDURE INFORMATION: Exam: XR Chest, 1 View Exam date and time: 05/01/2020 8:33 PM Age: 59 years old Clinical indication: Pain; Other: Abdominal distention and discomfort; Additional info: Distention, discomfort, no chest complaints TECHNIQUE: Imaging protocol: XR of the chest Views: 1 view. COMPARISON: CR (CHEST, ) 04/30/2020 5:49 PM FINDINGS: Lungs: Minimal patchy left basilar opacities. Pleural spaces: Unremarkable. No pleural effusion. No pneumothorax. Heart/Mediastinum: Cardiomegaly. Bones/joints: No acute fracture. XR/XR chest 1V portable [id number] IMPRESSION: Minimal patchy left basilar atelectasis or other infiltrates.
--- NOTE | 2020-05-01 18:30 | PC.NURSE ---
Hand-off report to night nurse Informed night nurse on order for SpO2 to check at HS and reinforcing the BIPAP use.
[2020-05-01] MEDS: FUROsemide 10 mg/mL SDV 4mL 40 MG IVP (19:08)
--- NOTE | 2020-05-01 19:13 | PC.NURSE ---
Received report from ZHANG Wang. Patient resting in bed with eyes closed. Patient easily aroused to verbal command. Instructed patient on IV Lasix and the need to wear Bipap due to increased pCO2. Patient verbalized complete understanding and is agreeable to wear the bipap over night stating, once I fall asleep I should not have any problem with the mask. Patient denies other needs or complaints. No distress observed.
[2020-05-01] MEDS: dilTIAZem 60 mg Tablet PO ×2 (19:23→22:59)
--- NOTE | 2020-05-01 19:25 | PC.NURSE ---
MED Administration Patient given Metoprolol early with new PO order for Cardizem. Cardizem gtt stopped at this time.
--- NOTE | 2020-05-01 20:42 | P.PN_ITS ---
Subjective Subjective: Interval history: This morning he was feeling little bit better. Denies any chest pain. Time is breathing was more comfortable. Heart rate still somewhat elevated. He states he is been having discussions with his PCP regarding possible sleep apnea and in fact was referred for sleep study but this was denied by insurance. He has been having quite a bit of lower extremity swelling recently. Later in the day today was also having bloating and abdominal discomfort. By nursing staff also noted to be more somnolent, sluggish, slurring of speech. Vitals/I&O/Wt Last Vital Signs Temp 97.5 F L 05/01/20 19:57 Pulse 96 05/01/20 19:57 Resp 14 05/01/20 19:57 BP 146/98 05/01/20 19:57 Pulse Ox 90 05/01/20 19:57 05/01/20 05/01/20 05/01/20 06:59 14:59 22:59 Intake Total 301.25 / 307.583 893.5 / 893.5 167.167 / 1060.667 Output Total 2100 / 2100 1550 / 3650 Balance 301.25 / 307.583 -1206.5 / -1206.5 -1382.833 / -2589.333 Weight last 48 hrs Weight 191.189 kg Weight 194.591 kg Physical Exam Const: COMMON NORMALS: no acute distress and patient oriented x3 NUTRITIONAL APPEARANCE: obese morbidly obese HENMT: COMMON NORMALS: oropharynx normal Neck/C-Spine: COMMON NORMALS: no JVD Resp: COMMON NORMALS: normal respiratory effort and clear to auscultation bilaterally AUSCULTATION: clear to auscultation bilaterally Cardio: COMMON NORMALS: no JVD, regular rhythm, S1 normal heart sound present, S2 normal heart sound present and No murmurs present (Cardio) RHYTHM: regular rhythm HEART SOUNDS: S1 normal heart sound present and S2 normal heart sound present GI: COMMON NORMALS: Normal to inspection, nondistended, normoactive bowel sounds present, Soft to palpation and non-tender PALPATION: Yes Soft to palpation Extremity: COMMON NORMALS: no joint enlargement GENERAL: Yes edema (2-3+ lower extremity edema) Neuro: COMMON NORMALS: patient oriented x3 and moves all extremities Skin: COMMON NORMALS: no rashes or lesions noted GENERAL SKIN EXAM: no rashes or lesions noted Data : 05/01/20 03:40 05/01/20 03:40 A&P Assessment and plan (1) Atrial fibrillation with rapid ventricular response: Atrial fibrillation with RVR, today still requiring 15 mg/h Cardizem drip. This evening down to 10 mg with heart rates in the low 100s. Denies chest pain. Added metoprolol. This evening with improvement in heart rates transition to oral Cardizem. No ischemic or infarctive changes, troponin noted which most likely are high due to tachyarrhythmia. A. fib with VR appears possibly due to hypoxia. Sleep apnea, obesity hypoventilation syndrome. Normal TSH and magnesium level. Potassium to be repleted He has been agreeable to continue on Eliquis. Consider additional assessment by stress testing once he is out of acute episode. Status: Acute (2) Hypokalemia: Receiving replacement. HCTZ on hold for now. Status: Acute (3) New onset of congestive heart failure: New onset CHF Discussed his echocardiogram results from [facility] with his . Normal ejection fraction, diastolic function unfortunately could not be assessed. Suspect diastolic CHF, secondary to combination of A. fib with RVR, TAWANDA, OHS. Continue diuresis. PE ruled out Status: Acute (4) Morbid obesity due to excess calories: Discussed with his that he will benefit from long-term weight loss. Status: Acute (5) Sleep apnea with hypersomnolence: Currently hypoxic and hypercapnic respiratory failure. Hypoxic especially at night, but continued oxygen requirement through the day. Continue diuresis for CHF. Discussed with his also regarding TAWANDA and OHS, with noted hypercapnia today with carbon dioxide of 89. He was more somnolent today, with some slurred speech. Started on BiPAP. I requested overnight oximetry. He would benefit from continued BiPAP with sleep if he is able to tolerate this. Long-term would benefit from weight loss. Repeat attempt for arrangement of sleep study. Consider follow-up with pulmonology. Status: Acute Additional A&P Information Abdominal distention: Today reporting abdominal distention to his nurse. No pain. But discomfort. Abdomen is quite large, and overall may be contributing to his hypoxia. Will assess with obstructive series. Cardiac diet DVT prophylaxis not indicated Full code Will need outpatient screening colonoscopy as well Attestations Medical Necessity Statement*: Continue admission for assessment management of A. fib with RVR, CHF, hypoxic and hypercapnic respiratory failure. Coding Level of Care Code Acute Cobol Programmer for Chg Fwd Diagnoses Atrial fibrillation with rapid ventricular response I48.91 Hypokalemia E87.6 New onset of congestive heart failure I50.9 Morbid obesity due to excess calories E66.01 Sleep apnea with hypersomnolence G47.10; G47.30
--- NOTE | 2020-05-01 22:23 | USCV_ITS ---
Williams Ross Age: 59 Gender: M : 1960 Exam Date: 05/01/2020 06:24 Ordering Phys: Barby Villa MD Technologist: Kristine Dinh Exam Location: [place] Indication: NEW ONSET AFIB BP: 119 / 65 HR: 110 Rhythm: Atrial fibrillation Technical Quality: Technically difficult study MEASUREMENTS (Male / Female) Normal Values 2D ECHO LV Diastolic Diameter PLAX 4.6 cm 4.2 - 5.9 / 3.9 - 5.3 cm LV Systolic Diameter PLAX 2.9 cm LV Chamber Size 6.4 cm IVS Diastolic Thickness 2.1 cm 0.6 - 1.0 / 0.6 - 0.9 cm IVS Systolic Thickness 2.0 cm LVPW Diastolic Thickness 1.2 cm 0.6 - 1.0 / 0.6 - 0.9 cm LVPW Systolic Thickness 1.9 cm RV Chamber Size 3.8 cm LVOT Diameter 2.0 cm LV Ejection Fraction 2D Teich 66.9 % LA Diameter 4.6 cm LA Width 5.0 cm LA Height 6.3 cm RA Width 5.5 cm RA Height 5.5 cm Aorta at Sinotubular Diameter 3.5 cm M-MODE LV Diastolic Diameter MM 5.5 cm 4.2 - 5.9 / 3.9 - 5.3 cm LV Systolic Diameter MM 3.2 cm LV Ejection Fraction MM Teich 71.9 % IVS Diastolic Thickness MM 1.2 cm 0.6 - 1.0 / 0.6 - 0.9 cm IVS Systolic Thickness MM 1.5 cm LVPW Diastolic Thickness MM 1.1 cm 0.6 - 1.0 / 0.6 - 0.9 cm LVPW Systolic Thickness MM 1.7 cm RV Diastolic Diameter MM 3.5 cm Aortic Annulus Diameter 4.8 cm LA Ao Ratio MM 0.9 MV E Point Septal Separation 0.3 cm DOPPLER AV Peak Velocity 108.0 cm/s LVOT Peak Velocity 55.0 cm/s AV Area Cont Eq vti 2.0 cm squared AV Area Cont Eq pk 1.6 cm squared MV E' Velocity 12.0 cm/s TR Peak Velocity 111.0 cm/s TR Peak Gradient 4.9 mmHg Right Atrial Pressure 8.0 mmHg Pulmonary Artery Systolic Pressu 12.9 mmHg PV Peak Velocity 70.0 cm/s RV Acceleration Time 0.1 s RV Ejection Time 0.3 s RV AcT/ET 0.3 FINDINGS Left Ventricle Mildly increased left ventricular cavity size. Normal left ventricular systolic function. Left ventricular ejection fraction is estimated at 55 %. In the presence of atrial fibrillation diastolic function cannot be assessed accurately. Right Ventricle The right ventricle is normal in size and function. Right Atrium The right atrium is normal in size. Left Atrium The left atrium is normal in size. Mitral Valve Mildly thickened mitral valve. Moderate mitral annular calcification. No mitral valve stenosis. No mitral valve regurgitation. Aortic Valve Aortic valve sclerosis without stenosis or regurgitation. Tricuspid Valve Trace to mild tricuspid valve regurgitation. Pulmonic Valve Structurally normal pulmonic valve without significant stenosis. There is no pulmonic regurgitation. Pericardium Normal pericardium without effusion. Aorta Normal ascending aorta dimension. CONCLUSIONS 1-Mildly increased left ventricular cavity size. Normal left ventricular systolic function. Left ventricular ejection fraction is estimated at 55 %. In the presence of atrial fibrillation diastolic function cannot be assessed accurately. 2-No significant valve abnormalities. 3-There is no pericardial effusion. 4-Pulmonary artery systolic pressure is within normal limits. 5-There are no prior echocardiogram studies to compare. Barby Martines MD (Electronically Signed) Final Date: 01 May 2020 18:04 S
[2020-05-01] MEDS: iohexol 300 mg/mL 100 mL Btl IV (22:36)
[2020-05-02] VITALS (18 sets, daily range): BP systolic 125–149; BP diastolic 64–95; PULSE 76–120; RESP 16–26; TEMP 36.3–36.8; O2SAT 16–96
[2020-05-02] MEDS: dilTIAZem 60 mg Tablet PO ×6 (03:19→21:55)
[2020-05-02 04:09] LABS: Alveolar-Arterial Oxygen Gradi 8.4 mmHg (5-10); Arterial Blood Gas Hematocrit 44.8 % (42-52); Base Excess ABG 18.1 mmol/L (-2.0-2.0); Blood Gas Allen Test Pos; Blood Gas Sample Site Radial, right; Blood Gas Sample Type Arterial; Carboxyhemoglobin 0.9 %THgb (0.4-20.1); HCO3 ABG 47.6 mmol/L (22-26); HGB O2 Sat 88.4 % (95-100); Ionized Calcium Level - ABG 1.1 mmol/L (1.1-1.4); Methemoglobin 0.7 % (0.4-1.5); Oxygen Device BIPAP; Oxygen Saturation ABG 89.9; PO2 ABG 59.8 mmHg (80.0-100.0); Potassium Level - ABG 2.9 mmol/L (3.5-5.0); Total Hemoglobin 14.6 g/dL (14-18)
[2020-05-02 04:15] LABS: ABG PCO2 76.9 mmHg (35-45)
[2020-05-02] MEDS: FUROsemide 10 mg/mL SDV 4mL 40 MG IVP ×2 (06:25→18:35)
[2020-05-02 06:46] LABS: Glucose Point of Care 90 mg/dL (70-110)
[2020-05-02 07:22] LABS: Basophils # 0.1 10^3/uL (0.0-0.1); Basophils % 0.9 %; Eosinophils # 0.2 10^3/uL (0.0-0.8); Eosinophils % 1.7 %; Hemoglobin 14.4 g/dL (11.7-16.6); Lymphocytes % 22.7 %; Mean Corpuscular HGB Conc 28.8 g/dL (30.0-36.0); Mean Corpuscular Hemoglobin 27.5 pg (28.0-34.0); Mean Corpuscular Volume 95.4 fL (80-94); Mean Platelet Volume 10.7 fL (7.4-10.4); Monocytes # 0.8 10^3/uL (0.2-0.9); Monocytes % 8.8 %; Neutrophils # 5.66 10^3/uL (1.8-7.7); Neutrophils % 65.8 %; Nucleated Red Blood Cells % 0 %; Platelet Count 231 10^3/cmm (130-400); Red Blood Count 5.24 10^6/uL (4.1-5.3); Red Cell Distribution Width 13.8 % (12.1-15.1); White Blood Count 8.6 10^3/uL (4.0-10.0)
[2020-05-02 07:53] LABS: Albumin Level 3.9 g/dL (3.5-5.2); Alkaline Phosphatase 110 IU/L (40-130); Blood Urea Nitrogen 7 mg/dL (8-23); Calcium 9.1 mg/dL (8.5-10.5); Carbon Dioxide 37 mmol/L (22-29); Chloride 94 mmol/L (98-107); Digoxin 0.8 ng/mL (0.6-1.2); Globulin 2.8 g/dL (1.3-4.6); Glomerular Filtration Rate 137.4 mL/min (90-130); Glucose 102 mg/dL (65-115); Osmolality Calculated 294 mOsm/kg (285-295); Sodium 143 mmol/L (136-145); Total Protein 6.7 g/dL (6.6-8.7)
[2020-05-02 07:55] LABS: Anion Gap 15.4 (5-19); Potassium 3.4 mmol/L (3.5-5.1)
[2020-05-02 07:56] LABS: Alanine Aminotransferase 27 U/L (0-41); Aspartate Amino Transferase 37 U/L (0-40)
[2020-05-02] MEDS: apixaban 5 mg Tablet PO ×2 (09:17→18:35)
[2020-05-02] MEDS: digoxin 250 mcg Tablet PO (09:17)
[2020-05-02] MEDS: metoprolol tartrate 25 mg Tablet PO ×2 (09:18→10:14)
[2020-05-02] MEDS: potassium chloride ER 20 mEq Tablet PO ×2 (09:18→11:43)
--- NOTE | 2020-05-02 10:22 | PM.PN ---
Subjective Subjective: Interval history: He is feeling little bit better. Today he is more awake. He is tolerating BiPAP well currently. Denies chest pain or pressure. No trouble breathing currently. Denies abdominal pain. No vomiting. He has been urinating well. Vitals/I&O/Wt Last Vital Signs Temp 97.6 F 05/02/20 08:00 Pulse 120 H 05/02/20 09:17 Resp 20 H 05/02/20 08:00 BP 125/64 05/02/20 08:00 Pulse Ox 89 L 05/02/20 08:00 05/01/20 05/02/20 05/02/20 22:59 06:59 14:59 Intake Total 287.167 / 1180.667 240 / 1420.667 360 / 360 Output Total 1550 / 3650 1700 / 5350 2100 / 2100 Balance -1262.833 / -2469.333 -1460 / -3929.333 -1740 / -1740 Weight last 48 hrs Weight 191.189 kg Weight 194.591 kg Physical Exam Const: COMMON NORMALS: no acute distress and patient oriented x3 NUTRITIONAL APPEARANCE: obese morbidly obese OTHER: He is awake, perhaps some minimal slowing to speech and movements, although I cannot really detect dysarthria. He is otherwise oriented and appears to have good insight. HENMT: COMMON NORMALS: oropharynx normal Neck/C-Spine: COMMON NORMALS: no JVD Resp: COMMON NORMALS: normal respiratory effort and clear to auscultation bilaterally AUSCULTATION: clear to auscultation bilaterally Cardio: COMMON NORMALS: no JVD, regular rhythm, S1 normal heart sound present, S2 normal heart sound present and No murmurs present (Cardio) RHYTHM: regular rhythm HEART SOUNDS: S1 normal heart sound present and S2 normal heart sound present GI: COMMON NORMALS: Normal to inspection, nondistended, normoactive bowel sounds present, Soft to palpation and non-tender PALPATION: Yes Soft to palpation Extremity: COMMON NORMALS: no joint enlargement GENERAL: Yes edema (2-3+ lower extremity edema) Neuro: COMMON NORMALS: patient oriented x3 and moves all extremities Skin: COMMON NORMALS: no rashes or lesions noted GENERAL SKIN EXAM: no rashes or lesions noted Data : 05/02/20 07:10 05/02/20 07:10 A&P Assessment and plan (1) Atrial fibrillation with rapid ventricular response: Heart rate is little bit better. We did transition over to oral medications yesterday. Will give extra dose potassium. Heart rates still, however, ranging in the 90s-100s, and up to 110-120 especially with exertion. Increase metoprolol dose to 50 mg twice daily. Continue Cardizem. He is also noted digoxin. Digoxin level is therapeutic. No ischemic or infarctive changes, troponin noted which most likely are high due to tachyarrhythmia. A. fib with RVR appears possibly due to hypoxia. Sleep apnea, obesity hypoventilation syndrome. Normal TSH and magnesium level. He has been agreeable to continue on Eliquis. Consider additional assessment by stress testing once he is out of acute episode. Status: Acute (2) New onset of congestive heart failure: New onset CHF diuresing well. -6 L. Extremity edema with some improvement. Reports that recently has been having very difficult time even with the secondary history of vomiting in the car. Request for PT and OT assessment as well. He potentially states could consider going to SNF for rehabilitation prior to returning home. Echo with normal ejection fraction, diastolic function unfortunately could not be assessed. Suspect diastolic CHF, secondary to combination of A. fib with RVR, TAWANDA, OHS. Continue diuresis. Diuretics changed to 40 mg IV Lasix twice daily. PE ruled out Status: Acute (3) Sleep apnea with hypersomnolence: Currently hypoxic and hypercapnic respiratory failure. Significant hypercapnia noted yesterday, 89. Today we will bit better down to 77. He is a little more alert. Still perhaps minimally sluggish speech, movements. Continue BiPAP as tolerating. We will try to see if we can arrange BiPAP for him for after discharge for sleep apnea, OHS with pretty severe symptomatic hypercapnia. Would still benefit from sleep study with titration. Long-term he needs to lose weight. Repeat attempt for arrangement of sleep study. Consider follow-up with pulmonology. Status: Acute (4) Morbid obesity due to excess calories: Would benefit from weight loss. Status: Acute (5) Hypokalemia: Receiving replacement. HCTZ on hold for now. Status: Acute Additional A&P Information Abdominal distention: Better. Slight improvement in edema of lower extremities. Suspect also intra-abdominal/edema. Discussed with him. He said no vomiting so far. Continue diuresis. Abdomen is nontender, soft. Very large at baseline. Difficult to say if some bloating is also present. Bowel sounds are normal. Cardiac diet DVT prophylaxis not indicated Full code Will need outpatient screening colonoscopy as well Attestations Medical Necessity Statement*: Continue admission for optimization of treatment of A. fib with RVR, treatment of CHF, hypercapnic and hypoxic respiratory failure in the setting of morbid obesity. Coding Level of Care Code Acute Parking Officer for Chg Fwd Diagnoses Atrial fibrillation with rapid ventricular response I48.91 New onset of congestive heart failure I50.9 Sleep apnea with hypersomnolence G47.10; G47.30 Morbid obesity due to excess calories E66.01 Hypokalemia E87.6
--- NOTE | 2020-05-02 19:41 | PC.NURSE ---
Received report from Debora Lester RN. Patient resting in bed with bipap in place. Spontaneously arouses with verbal stimuli. Denies pain or needs. No distress observed.
[2020-05-02] MEDS: metoprolol tartrate 50 mg Tablet PO (21:56)
--- NOTE | 2020-05-02 21:57 | PC.NURSE ---
Cluster med administration at patient request. Patient has too remove bipap to take medication.
[2020-05-03] VITALS (12 sets, daily range): BP systolic 132–146; BP diastolic 72–95; PULSE 79–98; RESP 17–26; TEMP 36.2–36.8; O2SAT 90–96
[2020-05-03] MEDS: dilTIAZem 60 mg Tablet PO ×5 (04:05→20:10)
[2020-05-03 04:48] LABS: ABG PH Result 7.43 (7.35-7.45); Alveolar-Arterial Oxygen Gradi 8.7 mmHg (5-10); Arterial Blood Gas Hematocrit 44.1 % (42-52); Base Excess ABG 17.7 mmol/L (-2.0-2.0); Blood Gas Allen Test Pos; Blood Gas Sample Site Radial, right; Blood Gas Sample Type Arterial; Carboxyhemoglobin 1.3 %THgb (0.4-20.1); HCO3 ABG 46.2 mmol/L (22-26); HGB O2 Sat 89.6 % (95-100); Ionized Calcium Level - ABG 1.2 mmol/L (1.1-1.4); Methemoglobin 0.8 % (0.4-1.5); Oxygen Device BIPAP; Oxygen Saturation ABG 91.5; PO2 ABG 63.2 mmHg (80.0-100.0); Total Hemoglobin 14.4 g/dL (14-18)
[2020-05-03 04:49] LABS: ABG PCO2 70.6 mmHg (35-45)
[2020-05-03 05:13] LABS: Basophils # 0.1 10^3/uL (0.0-0.1); Basophils % 1.3 %; Eosinophils # 0.2 10^3/uL (0.0-0.8); Eosinophils % 2.9 %; Hematocrit 47.5 % (42.0-52.0); Hemoglobin 13.8 g/dL (11.7-16.6); Lymphocytes # 1.7 10^3/uL (0.8-4.8); Lymphocytes % 21.8 %; Mean Corpuscular HGB Conc 29.1 g/dL (30.0-36.0); Mean Corpuscular Hemoglobin 27.8 pg (28.0-34.0); Mean Corpuscular Volume 95.8 fL (80-94); Monocytes # 0.8 10^3/uL (0.2-0.9); Monocytes % 9.5 %; Neutrophils # 5.14 10^3/uL (1.8-7.7); Neutrophils % 64.4 %; Nucleated Red Blood Cells % 0 %; Platelet Count 217 10^3/cmm (130-400); Red Blood Count 4.96 10^6/uL (4.1-5.3); Red Cell Distribution Width 13.9 % (12.1-15.1)
[2020-05-03] MEDS: FUROsemide 10 mg/mL SDV 4mL 40 MG IVP ×2 (06:24→17:41)
--- NOTE | 2020-05-03 06:32 | PC.NURSE ---
Patient sitting on side of bed. Medications given as ordered. Discussed Heart Failure care to include weighing self daily and fluid intake. Patient verbalized understanding but will need reinforcement. Denies pain or needs this morning. No distress observed.
[2020-05-03 07:04] LABS: Alanine Aminotransferase 26 U/L (0-41); Albumin Level 3.9 g/dL (3.5-5.2); Alkaline Phosphatase 105 IU/L (40-130); Anion Gap 10.1 (5-19); Aspartate Amino Transferase 31 U/L (0-40); Blood Urea Nitrogen 11 mg/dL (8-23); Calcium 9.2 mg/dL (8.5-10.5); Chloride 92 mmol/L (98-107); Glomerular Filtration Rate 137.4 mL/min (90-130); Glucose 96 mg/dL (65-115); Osmolality Calculated 293 mOsm/kg (285-295); Potassium 3.1 mmol/L (3.5-5.1); Sodium 142 mmol/L (136-145); Total Bilirubin 1.1 mg/dL (0.15-1.2); Total Protein 6.9 g/dL (6.6-8.7)
[2020-05-03 07:05] LABS: Carbon Dioxide 43 mmol/L (22-29)
[2020-05-03] MEDS: potassium chloride ER 20 mEq Tablet PO (10:08)
[2020-05-03] MEDS: digoxin 250 mcg Tablet PO (10:08)
[2020-05-03] MEDS: metoprolol tartrate 50 mg Tablet PO ×2 (10:08→20:10)
[2020-05-03] MEDS: apixaban 5 mg Tablet PO ×2 (10:10→17:41)
--- NOTE | 2020-05-03 10:14 | P.PN_ITS ---
Subjective Subjective: Interval history: He is gradually improving. He worked with physical therapy, and did pretty well. Appears his overall exertion tolerance is improving. States his breathing is gradually improving. Denies chest pain. Still some bloating in his abdomen, however, says he is passing flatus. Had a small bowel movement today. Denies abdominal pain. Vitals/I&O/Wt Last Vital Signs Temp 98 F 05/03/20 04:00 Pulse 81 05/03/20 10:08 Resp 20 H 05/03/20 09:19 BP 138/84 05/03/20 09:00 Pulse Ox 93 05/03/20 09:19 05/02/20 05/03/20 05/03/20 22:59 06:59 14:59 Intake Total 360 / 1080 360 / 360 Output Total 1200 / 3300 750 / 750 Balance -840 / -2220 -390 / -390 Physical Exam Narrative: EXAM NARRATIVE: His is participating in discussion on speaker phone. Const: COMMON NORMALS: no acute distress, patient oriented x3 and alert G ENERAL APPEARANCE: comfortable NUTRITIONAL APPEARANCE: obese morbidly obese ORIENTATION/CONSCIOUSNESS: Yes awake HENMT: COMMON NORMALS: oropharynx normal Neck/C-Spine: COMMON NORMALS: no JVD Resp: COMMON NORMALS: normal respiratory effort and clear to auscultation bilaterally AUSCULTATION: clear to auscultation bilaterally Cardio: COMMON NORMALS: no JVD, regular rhythm, S1 normal heart sound present, S2 normal heart sound present and No murmurs present (Cardio) RHYTHM: regular rhythm HEART SOUNDS: S1 normal heart sound present and S2 normal heart sound present GI: COMMON NORMALS: Normal to inspection, nondistended, normoactive bowel sounds present, Soft to palpation and non-tender PALPATION: Yes Soft to palpation Extremity: COMMON NORMALS: no joint enlargement GENERAL: Yes edema (2-3+ lower extremity edema, improving) Neuro: COMMON NORMALS: patient oriented x3 and moves all extremities SENSORIUM/ORIENTATION: Yes alert Skin: COMMON NORMALS: no rashes or lesions noted GENERAL SKIN EXAM: no rashes or lesions noted Data : 05/03/20 04:24 05/03/20 06:21 A&P Assessment and plan (1) New onset of congestive heart failure: He continues to diurese. He is still requiring supplemental oxygen. Overall his breathing is improving. Lower extremity swelling is gradually decreasing. We will continue IV diuresis at this time. Recently has been having difficulties with mobility including getting in and out of the car. Feels that he did pretty well with physical therapy today. Continue to mobilize. Echo with normal ejection fraction, diastolic function unfortunately could not be assessed. Suspect diastolic CHF, secondary to combination of A. fib with RVR, TAWANDA, OHS. Continue diuresis. Diuretics changed to 40 mg IV Lasix twice daily. PE ruled out Status: Acute (2) Sleep apnea with hypersomnolence: Currently hypoxic and hypercapnic respiratory failure. Significant hypercapnia noted yesterday, 89. Today we will bit better down to 77. He is a little more alert. Still perhaps minimally sluggish speech, movements. Continue BiPAP as tolerating. We will try to see if we can arrange BiPAP for him for after discharge for sleep apnea, OHS with pretty severe symptomatic hypercapnia. Would still benefit from sleep study with titration. Will also request for overnight pulse oximetry. Long-term he needs to lose weight. Repeat attempt for arrangement of sleep study. Consider follow-up with pulmonology. Status: Acute (3) Morbid obesity due to excess calories: Would benefit from weight loss. Status: Acute (4) Atrial fibrillation with rapid ventricular response: Heart rates improved. Currently 80s-90s. He responded well to increase in dose of metoprolol. Continue Cardizem p.o. No ischemic or infarctive changes, troponin noted which most likely are high due to tachyarrhythmia. A. fib with RVR appears possibly due to hypoxia. Sleep apnea, obesity hypoventilation syndrome. Normal TSH and magnesium level. He has been agreeable to continue on Eliquis. Consider additional assessment by stress testing once he is out of acute episode. Status: Acute (5) Hypokalemia: Receiving replacement. HCTZ on hold for now. Status: Acute Additional A&P Information Abdominal distention: Better. Gradually improving. Negative for acute process. We will add bowel regimen for him. He denies any vomiting. He is passing flatus. Had a small bowel movement today. Continue diuresis for CHF. Cardiac diet DVT prophylaxis not indicated Full code Will need outpatient screening colonoscopy as well Attestations Medical Necessity Statement*: Continue admission for assessment management of new CHF, hypercapnic and hypoxic respiratory failure. Coding Level of Care Code Acute Consulting Practice Director for Chg Fwd Diagnoses New onset of congestive heart failure I50.9 Sleep apnea with hypersomnolence G47.10; G47.30 Morbid obesity due to excess calories E66.01 Atrial fibrillation with rapid ventricular response I48.91 Hypokalemia E87.6
[2020-05-03] MEDS: potassium chloride ER 20 mEq Tablet 40 MEQ PO (11:13)
--- NOTE | 2020-05-03 13:20 | PC.OT ---
OT NOTE: OT EVALUATION ORDERS RECEIVED. OT SCREEN COMPLETED. PATIENT DEMONSTRATES NO DEFICITS IN ADL PERFORMANCE. NO FURTHER NEED FOR SKILLED OT REQUIRED.
--- NOTE | 2020-05-03 18:49 | PC.NURSE ---
pt ambulated in halls (on 3 l o2) x 3 today.tolerated quite well.no carver..o2 sats maintained above 90%.c/o constipation this morning.miralax ordered..but pt declined it at 1800.states he has had 3 soft formed bm's today.plan to have cont o2 sat monitoring tonight.
--- NOTE | 2020-05-03 19:38 | PC.NURSE ---
Patient has no complaints at this time. Will monitor.
[2020-05-04] VITALS (10 sets, daily range): BP systolic 109–138; BP diastolic 55–82; PULSE 84–94; RESP 18–24; TEMP 36–36.7; O2SAT 86–96
[2020-05-04] MEDS: dilTIAZem 60 mg Tablet PO ×3 (00:33→08:18)
[2020-05-04] MEDS: FUROsemide 10 mg/mL SDV 4mL 40 MG IVP (05:02)
[2020-05-04 05:41] LABS: Basophils # 0.1 10^3/uL (0.0-0.1); Eosinophils # 0.3 10^3/uL (0.0-0.8); Eosinophils % 3.7 %; Hematocrit 45.9 % (42.0-52.0); Hemoglobin 13.5 g/dL (11.7-16.6); Lymphocytes # 1.8 10^3/uL (0.8-4.8); Lymphocytes % 23.2 %; Mean Corpuscular HGB Conc 29.4 g/dL (30.0-36.0); Mean Corpuscular Hemoglobin 26.9 pg (28.0-34.0); Mean Corpuscular Volume 91.6 fL (80-94); Mean Platelet Volume 10.9 fL (7.4-10.4); Monocytes # 0.6 10^3/uL (0.2-0.9); Monocytes % 8.1 %; Neutrophils # 4.98 10^3/uL (1.8-7.7); Neutrophils % 63.7 %; Nucleated Red Blood Cells % 0 %; Platelet Count 213 10^3/cmm (130-400); Red Blood Count 5.01 10^6/uL (4.1-5.3); Red Cell Distribution Width 13.5 % (12.1-15.1); White Blood Count 7.8 10^3/uL (4.0-10.0)
[2020-05-04 06:08] LABS: Alanine Aminotransferase 23 U/L (0-41); Albumin Level 3.7 g/dL (3.5-5.2); Alkaline Phosphatase 103 IU/L (40-130); Anion Gap 11.3 (5-19); Aspartate Amino Transferase 31 U/L (0-40); Blood Urea Nitrogen 12 mg/dL (8-23); Calcium 9.3 mg/dL (8.5-10.5); Carbon Dioxide 37 mmol/L (22-29); Chloride 95 mmol/L (98-107); Glomerular Filtration Rate 137.4 mL/min (90-130); Glucose 93 mg/dL (65-115); Osmolality Calculated 289 mOsm/kg (285-295); Potassium 3.3 mmol/L (3.5-5.1); Sodium 140 mmol/L (136-145); Total Protein 6.7 g/dL (6.6-8.7)
[2020-05-04] MEDS: digoxin 250 mcg Tablet PO (08:18)
[2020-05-04] MEDS: metoprolol tartrate 50 mg Tablet PO (08:22)
[2020-05-04] MEDS: apixaban 5 mg Tablet PO (08:22)
[2020-05-04] MEDS: potassium chloride ER 20 mEq Tablet PO (08:23)
--- NOTE | 2020-05-04 11:31 | PM.DCS ---
Discharge Providers Date of Admission: 04/30/20 22:23 Date of Discharge: May 04, 2020 Attending Provider at Admission: Barby Villa MD Attending Provider at Discharge: Jt Padron Diagnoses at Discharge Discharge Diagnosis (1) New onset of congestive heart failure: Status: Acute (2) Sleep apnea with hypersomnolence: Status: Acute (3) Morbid obesity due to excess calories: Status: Acute (4) Atrial fibrillation with rapid ventricular response: Status: Acute (5) Hypokalemia: Status: Acute (6) Obesity hypoventilation syndrome: Status: Acute (7) Hypercapnic respiratory failure: Status: Acute Reason for Visit Reason for Visit: Back Pain, Tightness in Chest, SOB Hospital Course Hospital Course Pleasant 59-year-old gentleman with history of arthritis, HTN, morbid obesity, was admitted for assessment management of presenting with shortness of breath, abdominal bloating. He had noted quite significant swelling of lower extremities that had built up over 2-3 months. He noted quite significant limitation to his activity, to the point of having difficult time getting in and out of the car. He had intermittent chest discomfort, but with pressure-like sensation. On presentation he was found to be in new onset congestive heart failure, new onset atrial fibrillation with RVR. His TSH was normal. Wheezing potassium replaced. He was initially treated with Cardizem drip. Subsequently switched over to Cardizem, digoxin, metoprolol was added, and his heart rates became significantly better controlled, and 80s-90s. He has had no chest further chest discomfort. Troponin moderately elevated in the low 60s, without rising trend, thought to be due to arrhythmia and demand ischemia with hypoxia. He was treated with IV Lasix, diuresing quite well, with preserved renal function. He appears to be cumulative negative about 9 L from admission. During the hospitalization he was noted to have episodes of lethargy, slurred speech, on assessment with ABG showing to have quite significant hypercapnia. With morbid obesity this is likely due to obesity hypoventilation syndrome. He does not have history of COPD, and has not had symptoms of any exacerbation. He has been noted hypoxic while in hospital as well, requiring 3 L of oxygen by nasal cannula. Some this may be secondary to CHF exacerbation, although also possible is restrictive lung disease due to obesity. Given quite significant hypercapnia (89, with improvement with BiPAP down to 70), with noted hypercapnic encephalopathy, risk of recurrence, he will need to wear BiPAP with sleep or napping, as discussed with him and his . This is requested for him. He underwent also overnight pulse oximetry with noted saturation decreased below 88% for over 5 minutes. For additional assessment he is referred for PFT, sleep study with titration. Consider referral to pulmonology as well. Due to new onset CHF and atrial fibrillation, he is also referred for additional assessment by stress testing and assessment by cardiology. As discussed with him and his long-term he will significantly benefit from weight loss. Additional studies in the hospital include CT a chest which was negative for PE or acute pulmonary disease. His abdominal bloating appears to resolved with diuresis and may have been related to gut edema. CT abdomen pelvis with contrast negative for acute inflammatory process and abdominal pelvis. Echocardiogram with noted normal ejection fraction, 55%, due to atrial fibrillation diastolic function could not be assessed. He is today overall feeling much better, and feels ready to return home. He is discharged home with Lasix 60 mg twice a day. Please reassess volume status, adjust diuretic dose as appropriate per the please reassess renal function, potassium level. Due to mild recurrent hypokalemia in the hospital he is given potassium supplement. He is asked to discontinue ibuprofen, as well as any additional aspirin he takes for aches and pain as he is initiated on anticoagulation on discharge for stroke protection with atrial fibrillation. Please note also he has never had a screening colonoscopy and would benefit from assessment once he is closer to baseline state of health. Please see full hospitalization documentation and results for details. Do not hesitate to reach out with any questions. Physical Exam Narrative: EXAM NARRATIVE: He called his on speaker phone. Const: COMMON NORMALS: no acute distress, patient oriented x3 and alert GENERAL APPEARANCE: comfortable NUTRITIONAL APPEARANCE: obese morbidly obese ORIENTATION/CONSCIOUSNESS: Yes awake HENMT: COMMON NORMALS: oropharynx normal Neck/C-Spine: COMMON NORMALS: no JVD Resp: COMMON NORMALS: normal respiratory effort and clear to auscultation bilaterally AUSCULTATION: clear to auscultation bilaterally Cardio: COMMON NORMALS: no JVD, regular rhythm, S1 normal heart sound present, S2 normal heart sound present and No murmurs present (Cardio) RHYTHM: regular rhythm HEART SOUNDS: S1 normal heart sound present and S2 normal heart sound present GI: COMMON NORMALS: Normal to inspection, nondistended, normoactive bowel sounds present, Soft to palpation and non-tender PALPATION: Yes Soft to palpation Extremity: COMMON NORMALS: no joint enlargement GENERAL: Yes edema (2+ lower extremity edema, improving) Neuro: COMMON NORMALS: patient oriented x3 and moves all extremities SENSORIUM/ORIENTATION: Yes alert Skin: COMMON NORMALS: no rashes or lesions noted GENERAL SKIN EXAM: no rashes or lesions noted Discharge Data Data Completed and Pending: Completed Studies During Hospitalization Category Date Time Status CT abdomen pelvis w con* [id number] Rout ine Cat Scan 05/01/[address] angio chest PE protcl [id number] Urge nt Cat Scan 04/30/20 19:11 Completed XR chest 1V amira ble [id number] Routine Exams 05/01/20 18:11 Completed XR chest 1V amira ble [id number] Stat Exams 04/30/20 17:03 Completed CV echo complete* [id number] Routine Ultrasound 05/01/20 22:23 Completed Labs from last 24 hours 05/04/20 05/04/20 05:05 05:05 WBC 7.8 RBC 5.01 Hgb 13.5 Hct 45.9 MCV 91.6 MCH 26.9 L MCHC 29.4 L RDW 13.5 Plt Count 213 MPV 10.9 H Neut % (Auto) 63.7 Lymph % (Auto) 23.2 [place] % (Auto) 8.1 Eos % (Auto) 3.7 Baso % (Auto) 1.0 Neut # (Auto) 4.98 Lymph # (Auto) 1.8 [place] # (Auto) 0.6 Eos # (Auto) 0.3 Baso # (Auto) 0.1 Nucleated RBC % (a uto) 0 Nucleated RBCs # 0.0 Sodium 140 Potassium 3.3 L Chloride 95 L Carbon Dioxide 37 H Anion Gap 11.3 BUN 12 Creatinine 0.6 L GFR Calculation 137.4 H Glucose 93 Calculated Osmolal ity 289 Calcium 9.3 Total Bilirubin 1.0 AST 31 ALT 23 Alkaline Phosphata se 103 Total Protein 6.7 Albumin 3.7 Globulin 3.0 Vitals: Last Vital Signs Temp 98.0 F 05/04/20 09:26 Pulse 92 05/04/20 09:26 Resp 18 05/04/20 08:39 BP 138/82 05/04/20 09:26 Pulse Ox 91 05/04/20 09:26 Discharge Plan Discharge Patient Disposition: Home Condition: Stable Prescriptions: New potassium chloride [Klor-Con M20] 20 mEq Tablet,Er Particles/Crystals 20 meq PO DAILY Qty: 30 RF: 0 digoxin 250 mcg (0.25 mg) Tablet 250 mcg PO DAILY Qty: 30 RF: 0 metoprolol tartrate 50 mg Tablet 50 mg PO BID@0900,2100 Qty: 60 RF: 0 polyethylene glycol 3350 17 gram Powder In Packet 17 g PO BID Qty: 60 RF: 0 furosemide [Lasix] 40 mg tablet 60 mg PO BID Qty: 42 RF: 0 Eliquis 5 mg Tablet 5 mg PO BID Qty: 30 RF: 3 diltiazem HCl [Cardizem CD] 240 mg capsule,extended release 24hr 240 mg PO DAILY Qty: 30 RF: 0 Continued Tylenol Arthritis Pain 650 mg Tablet Extended Release 1,950 mg PO DAILY@06 RF: 0 lisinopril-hydrochlorothiazide 20-25 mg tablet 1 tab PO DAILY@06 RF: 0 Discontinued ibuprofen [IBU] 400 mg tablet 800 mg PO DAILY@06 RF: 0 Dawson Back and Body 500-32.5 mg Tablet 3 tab PO DAILY@06 RF: 0 Discharge Orders: Discharge Order (Routine); Ordered 05/04/20 Ordered By: Jt Padron Other Ambulatory Orders: Sestamibi Stress Test Request (Routine) Timeframe: 1 Week Facility: [facility] - Location: Cardiac Diagnostic Laboratory Ordered By: Jt Padron DME: BIPAP (Order) Timeframe: 1 Day Location: None Selected Ordered By: Jt Padron Pulmonary Function Screen with Bronchodilator (Routine) Timeframe: 1 Week Facility: [facility] - Location: Respiratory Therapy Ordered By: Jt Padron Sleep Study/Titration (Routine) Timeframe: 1 Week Location: None Selected Ordered By: Jt Padron Referrals: Arsalan Mak MD [Referring] - 05/09/20 9:00 am (You have a hospital followup with Dr. Castaneda at his office on May 09 at 9:00am) Minh Bower M.D [Physician] - 05/11/20 3:00 pm (You have a Cardiology followup with Dr. Bower at [facility] on May 11 at 3:00pm) Discharge Diet: Cardiac Discharge Activity: Increase activity as tolerated, Oxygen as instructed and Cpap/Bipap as instructed Patient Instructions: Metoprolol (By mouth), Diltiazem (By mouth), Digoxin (By mouth), Furosemide (By mouth), Potassium Chloride (By mouth), Polyethylene Glycol 3350 (By mouth), Apixaban (By mouth) Activity Restrictions/Additional Instructions: Please discuss with your primary care provider and follow-up with cardiology with regards to new CHF, atrial fibrillation. Please have your primary care doctor follow-up on the results of the stress test study, sleep study, and pulmonary function test. [facility] Centralized Scheduling Department will be calling you with the details of these tests. If you don't hear from them by Friday, please give them a call at [phone] Please note that BiPAP is ordered for you due to noted significant increase in carbon dioxide level, which appears to have been while you are asleep. Please wear your BiPAP anytime you are sleeping or napping. Please follow-up with your primary care doctor with regards to ongoing diuresis, and reassess your diuretic doses, possibly decreasing them as you are volume status is improving. Please monitor your blood pressure heart rate 3 times daily, write down values to bring to your appointment. If you experience persistently low blood pressures, very low or high heart, any chest pain or pressure, severe difficulty breathing, or any other concerning symptoms, please seek medical attention without delay. Please have your primary care doctor follow-up your kidney function and potassium level at the next visit. Please discuss with your primary care doctor regarding weight loss options. Please discuss with your primary care doctor referral for screening colonoscopy. If you experience any recurrent/persistent heartburn symptoms, please discuss with your primary care doctor regarding referral for additional assessment by endoscopy. Please be aware of bleeding risk with the new medication you are started on Discharge Attestations Time Spent in Discharge Care*: greater than 30 min Quality Metrics Clinical Quality Measures During this hospital stay, did patient experience: None Coding Level of Care Code Acute Proteomics Scientist for Chg Fwd Diagnoses New onset of congestive heart failure I50.9 Sleep apnea with hypersomnolence G47.10; G47.30 Morbid obesity due to excess calories E66.01 Atrial fibrillation with rapid ventricular response I48.91 Hypokalemia E87.6 Obesity hypoventilation syndrome E66.2 Hypercapnic respiratory failure J96.92
--- NOTE | 2020-05-04 15:24 | PC.NURSE ---
Pt discharged home. Pts IV removed no redness or swelling noted. Pts discharge instructions given along with prescriptions and follow up appointment. Pt had no c/o pain or discomfort at the present time of discharge. Pt transferred out via wheel chair accompanied by staff.
== END 2020-05-04 15:24 | disposition home or self-care (01) | DRG 308 ==
LOC: ER 17:47 → CSU 05-01 06:46
PROVIDERS: Admitting Provider Internal Medicine; Emergency Provider Emergency Medicine; Visit Provider Internal Medicine
DX: I48.91 Unspecified atrial fibrillation (principal); I50.31 Acute diastolic (congestive) heart failure; J96.02 Acute respiratory failure with hypercapnia; G92 Toxic encephalopathy; Z68.43 Body mass index [BMI] 50.0-59.9, adult; E66.2 Morbid (severe) obesity with alveolar hypoventilation; I24.8 Other forms of acute ischemic heart disease; I11.0 Hypertensive heart disease with heart failure; M54.9 Dorsalgia, unspecified; M19.90 Unspecified osteoarthritis, unspecified site; Z87.891 Personal history of nicotine dependence; E87.6 Hypokalemia; J44.9 Chronic obstructive pulmonary disease, unspecified
CPT/HCPCS: 12345; 36415; 36416; 36600; 71045; 71275; 74177; 80048; 80051; 80053; 80061; 80162; 82330; 82803; 82805; 82962; 83036; 83605; 83735; 83880; 84443; 84484; 85025; 85378; 85610; 93005; 93306; 94660; 94762; 97116; 97161; 99283; J1160; J1940; J3490; Q9967

== ENCOUNTER → 2020-05-11 13:52 | Outpatient (BNVA) | payer OTHER, SELFPAY | PROVIDERS: Visit Provider Internal Medicine | DX: I48.91 Unspecified atrial fibrillation (principal); I50.9 Heart failure, unspecified | CPT/HCPCS: 80048; 83880 ==

== ENCOUNTER 2020-05-16 20:00 | Outpatient (CLI) | payer OTHER, SELFPAY | END 2020-05-16 20:01 | disposition home or self-care (01) | LOC: SLEEP 05-17 09:36 | PROVIDERS: PCP Family Medicine; Visit Provider Internal Medicine | DX: G47.10 Hypersomnia, unspecified (principal); G47.33 Obstructive sleep apnea (adult) (pediatric) | CPT/HCPCS: 95810 ==

== ENCOUNTER → 2020-05-17 09:27 | Outpatient (BNVA) | payer OTHER, SELFPAY | PROVIDERS: Visit Provider Internal Medicine | DX: Z01.812 Encounter for preprocedural laboratory examination (principal); Z20.828 Contact with and (suspected) exposure to other viral communicable diseases | CPT/HCPCS: 87635 ==

== ENCOUNTER → 2020-05-19 10:21 | Outpatient (BNVA) | payer OTHER, SELFPAY | PROVIDERS: Referring Provider Internal Medicine; Visit Provider Internal Medicine | DX: I48.91 Unspecified atrial fibrillation (principal) | CPT/HCPCS: 80048; 83880 ==

== ENCOUNTER 2020-05-22 11:18 | Inpatient (IN) | payer OTHER, SELFPAY ==
[2020-05-22] VITALS (29 sets, daily range): BP systolic 96–115; BP diastolic 48–67; PULSE 60–111; RESP 13–26; TEMP 36.3–36.6; O2SAT 86–97; BMI 45.0
[2020-05-22 12:09] LABS: Basophils # 0.1 10^3/uL (0.0-0.1); Basophils % 1.5 %; Eosinophils # 0.2 10^3/uL (0.0-0.8); Eosinophils % 1.7 %; Hematocrit 52.7 % (42.0-52.0); Lymphocytes # 2.9 10^3/uL (0.8-4.8); Lymphocytes % 30.8 %; Mean Corpuscular HGB Conc 32.3 g/dL (30.0-36.0); Mean Corpuscular Hemoglobin 27.8 pg (28.0-34.0); Mean Corpuscular Volume 86.1 fL (80-94); Mean Platelet Volume 11.9 fL (7.4-10.4); Monocytes # 0.8 10^3/uL (0.2-0.9); Monocytes % 8.4 %; Neutrophils # 5.41 10^3/uL (1.8-7.7); Neutrophils % 57.4 %; Nucleated Red Blood Cells % 0 %; Platelet Count 341 10^3/cmm (130-400); Red Blood Count 6.12 10^6/uL (4.1-5.3); Red Cell Distribution Width 13.9 % (12.1-15.1); White Blood Count 9.4 10^3/uL (4.0-10.0)
--- NOTE | 2020-05-22 12:09 | ECG_ITS ---
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 Measurements Intervals [place] Rate: 45 P: ME: QRS: 65 QRSD: 98 T: 52 QT: 327 QTc: 284 Interpretive Statements ATRIAL FIBRILLATION WITH SLOW VENTRICULAR RESPONSE LOW QRS VOLTAGE IN PRECORDIAL LEADS [QRS DEFLECTION < 1.0 mV IN CHEST LEADS] Compared to ECG 04/30/2020 23:18:17 Low QRS voltage now present ST (T wave) deviation now present Myocardial infarct finding now present Intraventricular conduction delay no longer present Electronically Signed On 05-23-2020 6:02:41 PATTERN CHART WRITER by Frieda Higgins M.D. [email or web address] community [email or web address]/[id number]
--- NOTE | 2020-05-22 12:19 | W.ED.GENADLT ---
HPI - General Adult General: Chief complaint: General Medical Stated complaint: Sent from for elevated levels Time Seen by Provider: 05/22/20 11:44 History of Present Illness: HPI narrative: The patient is a 59-year-old male with past medical history recently diagnosed and treated for atrial fibrillation and CHF and obesity hypoventilation syndrome comes to the ER because he was told to by Dr. Bower who said he had high potassium and increased creatinine. He says he is feeling well but is complaining of some heartburn and abdominal swelling. Denies peripheral swelling. For a week or 2 he was told to stop the Lasix but continue taking the potassium. A few days ago Dr. Bower told him to start the Lasix again and when he got the lab work back told him to come to the ER. He was admitted late March with A. fib RVR and new CHF. He was diuresed and discharged and started on rhythm control agents. He was offered BiPAP on discharge for his obesity hypoventilation and CO2 retention however he refused. Severity: moderate Associated symptoms: Deny chest pain, confusion, cough, dyspnea, headache(s) or rash Review of Systems General: Reports: 10 or more systems reviewed and unremarkable except in HPI and below Const: Denies: fatigue Eyes: Denies: change in vision, blurry vision or eye redness ENMT: Denies: throat pain, swelling of lips/tongue, ear or mastoid pain or nasal congestion Card: Denies: chest pain Resp: Denies: dyspnea, productive cough or non-productive cough GI: Denies: abdominal pain, diarrhea or GI cramping : Denies: flank pain, urinary frequency or urinary urgency Musc: Denies: neck pain, back pain, extremity pain, joint pain, joint redness, limited range of motion or muscle weakness Skin/Breast: Denies: rash, pruritus, erythema, skin pain or skin tenderness Neuro: Denies: headache(s), numbness in extremities, weakness in extremities, sensory changes, difficulty walking, dizziness, confusion or Slurred speech present Psych: Denies: anxiety or depression Endo: Denies: polyuria All/Imm: Denies: urticaria, throat swelling or tongue swelling PFSH ED PFSH: Medical History Arthritis Atrial fibrillation with rapid ventricular response Former smoker Hypertension Hypokalemia Morbid obesity due to excess calories Retained myringotomy tube in left ear Sleep apnea with hypersomnolence Surgical History H/O hernia repair S/P left knee arthroscopy Family History Mother Cancer Liver cancer Social History Smoking and tobacco status: former smoker Alcohol intake: never Physical Exam Const: COMMON NORMALS: no acute distress, average body habitus, patient oriented x3, no limitations, healthy appearing, alert and well nourished GENERAL APPEARANCE: cooperative, comfortable, well kempt and well developed ORIENTATION/CONSCIOUSNESS: Yes awake, Yes oriented to person, Yes oriented to place and Yes oriented to time HENMT: COMMON NORMALS: normocephalic, external ears normal and Normal external nose present HEAD & SCALP: normal to inspection and normocephalic NOSE: Normal external nose present EXTERNAL EAR: Yes external ears normal MOUTH: Normal oral and palatal mucosa present THROAT: posterior oropharynx normal Eye: COMMON NORMALS: Equal, round and reactive pupils present and EOMs intact bilaterally GENERAL EYE: appearance normal, both eyes and all related structures PUPIL: Yes Equal, round and reactive pupils present Neck/C-Spine: COMMON NORMALS: full ROM, no lymphadenopathy, no meningeal signs and no JVD GENERAL: Yes normal visual inspection Lymph: LYMPHATIC: no lymphadenopathy noted Chest: COMMONS NORMALS: normal inspection of the chest and normal palpation of entire chest wall Resp: COMMON NORMALS: normal respiratory effort, No retractions, No use of accessory muscles, clear to auscultation bilaterally and percussion normal EFFORT & INSPECTION: Yes able to speak in complete sentences AUSCULTATION: clear to auscultation bilaterally PERCUSSION: percussion normal Cardio: COMMON NORMALS: no JVD, regular rate, regular rhythm, S1 normal heart sound present, S2 normal heart sound present and Peripheral pulses 2+ throughout RATE: regular rate RHYTHM: regular rhythm HEART SOUNDS: S1 normal heart sound present and S2 normal heart sound present PERIPHERAL PULSES: Peripheral pulses 2+ throughout GI: COMMON NORMALS: Normal to inspection, nondistended, normoactive bowel sounds present, Soft to palpation, non-tender and no masses INSPECTION: Yes normal to inspection PALPATION: Yes Soft to palpation : COMMON NORMALS: Yes no CVA tenderness BLADDER/KIDNEY EXAM: Yes no CVA tenderness Back/Pelvis: COMMON NORMALS: no CVA tenderness, thoracic and lumbar spine normal to inspection, no thoracic nor lumbar tenderness and thoraco-lumbar ROM normal Extremity: COMMON NORMALS: normal to inspection, full ROM, capillary refill normal, no joint enlargement and no pedal edema GENERAL: Yes normal exam except as noted Neuro: COMMON NORMALS: patient oriented x3, CN's II-XII intact bilaterally, moves all extremities, no focal motor deficits, no sensory deficits noted and gait normal SENSORIUM/ORIENTATION: Yes alert, Yes oriented to person, Yes oriented to place and Yes oriented to time MENINGEAL SIGNS: Yes no meningeal signs Psych: COMMON NORMALS: mental status grossly normal, Normal thought process present, cooperative, normal affect and speech normal APPEARANCE: Yes well kempt ATTITUDE: Yes calm SPEECH: Yes normal speech THOUGHT PROCESS: Normal thought process present Skin: COMMON NORMALS: no rashes or lesions noted GENERAL SKIN EXAM: no rashes or lesions noted Course Vital Signs: Vital signs: Vital Signs Temperature 97.4 F L 05/22/20 20:00 Pulse Rate 81 05/22/20 22:00 Respiratory Rate 18 05/22/20 20:00 Blood Pressure 98/67 05/22/20 18:15 Pulse Oximetry 97 05/22/20 18:15 MDM - General Adult MDM Narrative: Medical decision making narrative: The patient has past medical history CHF and atrial fibrillation. He comes in with outpatient labs indicating acute renal failure and hyperkalemia. This is possibly because he stopped taking Lasix but continue taking potassium for 2 weeks. Also his troponin is elevated above his baseline 1 month ago. And he was having chest pain. Discussed the patient with Dr. Bower who recommended following the troponins and he will follow the case. He was given insulin, D50, and calcium gluconate IV for his potassium. Did not give Lasix immediately because his pressure has been slightly low at 94/41. discussed with Dr. Meek who accepts to CCU Lab Data: Labs: Lab Results 05/22/20 05/22/20 05/22/20 Range/Units 11:42 11:50 11:50 WBC 9.4 (4.0-10.0) 10^3/ uL RBC 6.12 H (4.1-5.3) 10^6/u L Hgb 17.0 H (11.7-16.6) g/dL Hct 52.7 H (42.0-52.0) % MCV 86.1 (80-94) fL MCH 27.8 L (28.0-34.0) pg MCHC 32.3 (30.0-36.0) g/dL RDW 13.9 (12.1-15.1) % Plt Count 341 (130-400) 10^3/c mm MPV 11.9 H (7.4-10.4) fL Neut % (Auto) 57.4 % Lymph % (Auto) 30.8 % [place] % (Auto) 8.4 % Eos % (Auto) 1.7 % Baso % (Auto) 1.5 % Neut # (Auto) 5.41 (1.8-7.7) 10^3/u L Lymph # (Auto) 2.9 (0.8-4.8) 10^3/u L [place] # (Auto) 0.8 (0.2-0.9) 10^3/u L Eos # (Auto) 0.2 (0.0-0.8) 10^3/u L Baso # (Auto) 0.1 (0.0-0.1) 10^3/u L Nucleated RBC % (a uto) 0 % Nucleated RBCs # 0.0 /100WBC Sodium 126 L (136-145) mmol/L Potassium 6.3 H (3.5-5.1) mmol/L Chloride 87 L (98-107) mmol/L Carbon Dioxide 25 (22-29) mmol/L Anion Gap 20.3 H (5-19) BUN 61 H (8-23) mg/dL Creatinine 2.5 H (0.7-1.2) mg/dL GFR Calculation 26.5 L (90-130) mL/min Glucose 98 (65-115) mg/dL Calculated Osmolal ity 279 L (285-295) mOsm/k g Calcium 9.9 (8.5-10.5) mg/dL Magnesium 2.0 (1.7-2.3) mg/dL Total Bilirubin 0.5 (0.15-1.2) mg/dL AST 28 (0-40) U/L ALT 39 (0-41) U/L Alkaline Phosphata se 110 (40-130) IU/L Troponin T Baselin e (0-15) ng/L Troponin T 120 Min julia (0-15) ng/L Delta Troponin T (0-10) ABS# NT-Pro-B Natriuret Pep (0-125) pg/mL Total Protein 8.0 (6.6-8.7) g/dL Albumin 4.4 (3.5-5.2) g/dL Globulin 3.6 (1.3-4.6) g/dL Urine Color Yellow (Yellow) Urine Appearance Cloudy (CLEAR) Urine pH 5 (5-7) Ur Specific Gravit y 1.010 (1.005-1.030) Urine Protein Trace (Negative) Urine Glucose (UA) Norm (Normal) Urine Ketones Negative (Negative) Urine Blood 2+ H (Negative) Urine Nitrate Negative (Negative) Urine Bilirubin Neg (Negative) Urine Urobilinogen Norm (Negative) mg/dL Ur Leukocyte Melissa ase Trace H (Negative) Urine RBC 0-4 H (0-2) /hpf Urine WBC 0-4 H (0-5) /hpf Ur Squamous Epith Cells 25-40 H (0-5) /hpf Amorphous Sediment Not Reportable Urine Bacteria 1+ H (NONE) /hpf 05/22/20 05/22/20 05/22/20 Range/Units 11:50 11:50 13:50 WBC (4.0-10.0) 10^3/ uL RBC (4.1-5.3) 10^6/u L Hgb (11.7-16.6) g/dL Hct (42.0-52.0) % MCV (80-94) fL MCH (28.0-34.0) pg MCHC (30.0-36.0) g/dL RDW (12.1-15.1) % Plt Count (130-400) 10^3/c mm MPV (7.4-10.4) fL Neut % (Auto) % Lymph % (Auto) % [place] % (Auto) % Eos % (Auto) % Baso % (Auto) % Neut # (Auto) (1.8-7.7) 10^3/u L Lymph # (Auto) (0.8-4.8) 10^3/u L [place] # (Auto) (0.2-0.9) 10^3/u L Eos # (Auto) (0.0-0.8) 10^3/u L Baso # (Auto) (0.0-0.1) 10^3/u L Nucleated RBC % (a uto) % Nucleated RBCs # /100WBC Sodium (136-145) mmol/L Potassium (3.5-5.1) mmol/L Chloride (98-107) mmol/L Carbon Dioxide (22-29) mmol/L Anion Gap (5-19) BUN (8-23) mg/dL Creatinine (0.7-1.2) mg/dL GFR Calculation (90-130) mL/min Glucose (65-115) mg/dL Calculated Osmolal ity (285-295) mOsm/k g Calcium (8.5-10.5) mg/dL Magnesium (1.7-2.3) mg/dL Total Bilirubin (0.15-1.2) mg/dL AST (0-40) U/L ALT (0-41) U/L Alkaline Phosphata se (40-130) IU/L Troponin T Baselin e 101 H* (0-15) ng/L Troponin T 120 Min julia 94.29 H (0-15) ng/L Delta Troponin T -6.71 L (0-10) ABS# NT-Pro-B Natriuret Pep 726 H (0-125) pg/mL Total Protein (6.6-8.7) g/dL Albumin (3.5-5.2) g/dL Globulin (1.3-4.6) g/dL Urine Color (Yellow) Urine Appearance (CLEAR) Urine pH (5-7) Ur Specific Gravit y (1.005-1.030) Urine Protein (Negative) Urine Glucose (UA) (Normal) Urine Ketones (Negative) Urine Blood (Negative) Urine Nitrate (Negative) Urine Bilirubin (Negative) Urine Urobilinogen (Negative) mg/dL Ur Leukocyte Melissa ase (Negative) Urine RBC (0-2) /hpf Urine WBC (0-5) /hpf Ur Squamous Epith Cells (0-5) /hpf Amorphous Sediment Urine Bacteria (NONE) /hpf Discharge Plan Discharge Patient Disposition: Admitted As Inpatient Admit Provider: Issa Meek Clinical Impression: New onset of congestive heart failure, Obesity hypoventilation syndrome, Acute hyperkalemia, Acute renal failure, Elevated troponin, Atrial fibrillation Condition: Stable Coding Level of Care Code ED Head Field Hockey Coach for Chg Fwd Exam Comprehensive
[2020-05-22 12:27] LABS: Alanine Aminotransferase 39 U/L (0-41); Albumin Level 4.4 g/dL (3.5-5.2); Alkaline Phosphatase 110 IU/L (40-130); Aspartate Amino Transferase 28 U/L (0-40); Blood Urea Nitrogen 61 mg/dL (8-23); Calcium 9.9 mg/dL (8.5-10.5); Carbon Dioxide 25 mmol/L (22-29); Chloride 87 mmol/L (98-107); Globulin 3.6 g/dL (1.3-4.6); Glomerular Filtration Rate 26.5 mL/min (90-130); Glucose 98 mg/dL (65-115); Osmolality Calculated 279 mOsm/kg (285-295); Sodium 126 mmol/L (136-145); Total Bilirubin 0.5 mg/dL (0.15-1.2)
--- NOTE | 2020-05-22 12:49 | ECG_ITS ---
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 Measurements Intervals [place] Rate: 61 P: [place]: QRS: 56 QRSD: 111 T: 28 QT: 335 QTc: 338 Interpretive Statements ATRIAL FIBRILLATION MODERATE INTRAVENTRICULAR CONDUCTION DELAY [110+ ms QRS DURATION] Compared to ECG 05/22/2020 12:21:17 Intraventricular conduction delay now present ST (T wave) deviation no longer present Myocardial infarct finding no longer present Electronically Signed On 05-23-2020 6:00:24 HAND SPINNER by Frieda Higgins M.D. [id number]
[2020-05-22 12:57] LABS: Anion Gap 20.3 (5-19); Potassium 6.3 mmol/L (3.5-5.1)
[2020-05-22] MEDS: aspirin 81 mg Chew Tablet 324 MG PO (13:21)
[2020-05-22 13:28] LABS: Add Urine Microscopic? YES; Bacteria Urine 1+ /hpf; Bilirubin Urine Neg (Negative); Blood Urine 2+ (Negative); Glucose Urine UA Norm (Normal); Ketones Urine Negative (Negative); Leukocyte Esterase Urine Trace (Negative); Nitrate Urine Negative (Negative); Protein Urine Trace (Negative); RBC Urine 0-4 /hpf (0-2); Squamous Epithelial Cell Urine 25-40 /hpf (0-5); Urine Appearance Cloudy (CLEAR); Urine Color Yellow (Yellow); Urobilinogen Urine Norm (Negative); WBC Urine 0-4 /hpf (0-5); pH Urine 5 (5-7)
[2020-05-22 13:32] LABS: NT Pro B Type Natriuretic Pept 726 pg/mL (0-125)
[2020-05-22 13:34] LABS: Troponin(5th) Baseline 101 ng/L (0-15)
[2020-05-22] MEDS: dextrose 50% syringe 50 mL IVP (13:55)
[2020-05-22] MEDS: insulin regular-human 100 units/1 mL 10 UNIT IVP (14:02)
--- NOTE | 2020-05-22 14:09 | ECG_ITS ---
[facility] Test Date: 2020-05-22 Pat Name: Williams Ross Department: Room: Gender: Male Derrick Follower: : 1960 Requested By: Parag Fischer Order Number: [id number] Katrina MD: Frieda Higgins M.D. Measurements Intervals [place] Rate: 58 P: [place]: QRS: 72 QRSD: 108 T: 32 QT: 326 QTc: 322 Interpretive Statements ATRIAL FIBRILLATION WITH SLOW VENTRICULAR RESPONSE ABNORMAL RHYTHM ECG Compared to ECG 05/22/2020 12:48:47 Intraventricular conduction delay no longer present Electronically Signed On 05-23-2020 6:08:31 COSMETIC ACCOUNT COORDINATOR by Frieda Higgins M.D. [id number]
[2020-05-22 14:44] LABS: Troponin 5 2HR 94.29 ng/L (0-15)
[2020-05-22 14:45] LABS: Troponin 5 2HR Delta -6.71 ABS# (0-10)
--- NOTE | 2020-05-22 15:58 | P.HP_ITS ---
Providers/Chief Complaint Primary Care Provider: Arsalan Mak MD Chief Complaint: Sent from for elevated levels History of Present Illness Williams Ross is a 59 year old male with a past medical history of atrial fibrillation, hypertension, obesity hypoventilation syndrome, chronic hypercarbia, diastolic heart failure, who presents to [facility] due to abnormal labs. Patient was admitted to [facility] a few weeks ago, for new onset atrial fibrillation, new onset heart failure, was placed on multiple new medications, he tells me he is lost roughly 60 pounds in the last month, he was feeling better until about a week ago, when he started to feel unwell, having some fatigue, malaise, no shortness of breath per se, no bilateral extremity edema, no chest pain, and but does describe some lig htheadedness. Dr. Bower had held his Lasix for a week, and his blood work was checked up on Friday, he was found to be hyperkalemia, with acute renal failure. Over the weekend he continued to have fatigue, weakness, thus he was advised to come back to the emergency room. In the emergency room he was complaining of some chest pain, which resolved subsequently. He does state that since he got to the hospital, he has had intermittent episodes of chest heaviness, lasting a few minutes, nonradiating, sometimes associated with shortness of breath. He tells me that Dr. Bower has ordered a outpatient stress test for him. Review of Systems Const: Reports: fatigue and malaise; Denies: fever(s) or chills Eyes: Denies: change in vision or blurry vision ENMT: Denies: nasal congestion Card: Reports: chest pain and lightheadedness; Denies: palpitations, edema, syncope or pre-syncope Resp: Denies: dyspnea, productive cough, non-productive cough or wheezing GI: Denies: abdominal pain, nausea, vomiting, hematemesis, diarrhea, constipation, hematochezia or melena : Denies: flank pain, difficulty urinating, dysuria or urinary frequency Musc: Denies: neck pain or back pain Skin/Breast: Denies: rash Neuro: Denies: headache(s), dizziness or vertigo Psych: Denies: anxiety or depression Endo: Denies: polyuria or polydipsia Medications/Allergies Home Medications Medication Instructions Recorded Confirmed Last Taken Type lisinopril-hydrochlorothiazide 1 tab PO DAILY@04/30/20 05/22/20 05/21/20 History furosemide 40 mg tablet 40 mg PO BID tab 05/11/20 05/22/20 05/22/20 History see pharmacy comment apixaban [Eliquis] 5 mg PO BID@,05/22/20 05/22/20 05/22/20 08:00 History digoxin 250 mcg PO DAILY@05/22/20 05/22/20 05/22/20 08:00 History diltiazem HCl [Cardizem CD] 240 mg PO DAILY@05/22/20 05/22/20 05/21/20 History metoprolol tartrate 50 mg PO BID@05/22/20 05/22/20 05/22/20 08:00 History ondansetron HCl 4 mg PO Q6H PRN 05/22/20 05/22/20 Unknown History potassium chloride [Klor-Con M20] 20 meq PO DAILY@05/22/20 05/22/20 05/22/20 History sour arboleda extract [Tart Arboleda 1,000 mg PO DAILY 05/22/20 05/22/20 05/22/20 History Extract] tramadol 50 mg PO Q6H PRN 05/22/20 05/22/20 Unknown History vit C,I-Da-ydgap-lutein-zeaxan 1 tab PO DAILY 05/22/20 05/22/20 Unknown History [PreserVision AREDS-2] Allergies Allergy/AdvReac Type Severity Reaction Status Date / Time No Known Allergies Allergy Verified 05/22/20 13:20 PFSH Acute PFSH: Medical History Arthritis Atrial fibrillation with rapid ventricular response Former smoker Hypertension Hypokalemia Morbid obesity due to excess calories Retained myringotomy tube in left ear Sleep apnea with hypersomnolence Surgical History H/O hernia repair S/P left knee arthroscopy Family History Mother Cancer Liver cancer Social History Smoking and tobacco status: former smoker Alcohol intake: never Vitals/I&O/Wt Last Vital Signs Temp 97.9 F 05/22/20 11:27 Pulse 64 05/22/20 13:39 Resp 16 05/22/20 13:39 BP 96/48 05/22/20 13:39 Pulse Ox 96 05/22/20 13:39 Weight last 48 hrs Weight 163.293 kg Physical Exam Const: COMMON NORMALS: no acute distress and patient oriented x3 GENERAL APPEARANCE: cooperative and comfortable HENMT: COMMON NORMALS: normocephalic HEAD & SCALP: normocephalic Eye: COMMON NORMALS: Equal, round and reactive pupils present and EOMs intact bilaterally GENERAL EYE: appearance normal, both eyes and all related structures PUPIL: Yes Equal, round and reactive pupils present Neck/C-Spine: COMMON NORMALS: full ROM, no lymphadenopathy, no JVD and Thyroid normal THYROID: Thyroid normal Lymph: LYMPHATIC: no lymphadenopathy noted Resp: COMMON NORMALS: normal respiratory effort, No retractions, No use of accessory muscles and clear to auscultation bilaterally AUSCULTATION: clear to auscultation bilaterally Cardio: COMMON NORMALS: no JVD, regular rate, regular rhythm, S1 normal heart sound present, S2 normal heart sound present, No gallops present (Cardio), No clicks present (Cardio) and No murmurs present (Cardio) RATE: regular rate RHYTHM: regular rhythm HEART SOUNDS: S1 normal heart sound present and S2 normal heart sound present GI: COMMON NORMALS: Normal to inspection, nondistended, normoactive bowel sounds present, Soft to palpation, non-tender and No hepatosplenomegaly present PALPATION: Yes Soft to palpation and Yes No hepatosplenomegaly present Extremity: COMMON NORMALS: normal to inspection, full ROM and no pedal edema Neuro: COMMON NORMALS: patient oriented x3, CN's II-XII intact bilaterally, moves all extremities and no focal motor deficits Psych: COMMON NORMALS: mental status grossly normal, Normal thought process present and cooperative THOUGHT PROCESS: Normal thought process present Data : 05/22/20 11:50 05/22/20 11:50 A&P Assessment and plan (1) Acute hyperkalemia: -Did have nonspecific ST-T wave changes on initial EKG, which subsequently have resolved -Patient was given insulin, D50, calcium gluconate in the ER -We will recheck potassium levels -Start Kayexalate -Needs telemetry monitoring Status: Acute (2) Acute renal failure: -Likely secondary to Lasix, lisinopril hydrochlorothiazide -Hold medications as above -Gentle IV hydration at 50 cc an hour Status: Acute (3) Chest pain: -Patient had an outpatient stress test ordered -Continue aspirin, statin -Monitor for chest pain, telemetry monitoring -Serial EKGs serial troponins -Cardiology on consult Status: Acute (4) Hypercapnic respiratory failure: -Has a history of chronic hypercapnia -Encourage CPAP use during the night -Currently no episodes of confusion Status: Acute (5) Obesity hypoventilation syndrome: Status: Acute (6) New onset of congestive heart failure: Does not look fluid overloaded, hold Lasix Status: Acute (7) Atrial fibrillation: Continue Cardizem, reduce dose, digoxin based on creatinine clearance, continue metoprolol Status: Acute Attestations Medical Necessity Statement*: Patient requires hospitalization, inpatient, greater than 2 midnights, for acute renal failure, acute hyperkalemia, chest pain, Coding Level of Care Code Acute Disability Services Coordinator for [facility] F[facility] Diagnoses Acute hyperkalemia E87.5 Acute renal failure N17.9 Chest pain R07.9 Hypercapnic respiratory failure J96.92 Obesity hypoventilation syndrome E66.2 New onset of congestive heart failure I50.9 Atrial fibrillation I48.91
[2020-05-22 16:44] LABS: Anion Gap 16.8 (5-19); Blood Urea Nitrogen 60 mg/dL (8-23); Calcium 10.4 mg/dL (8.5-10.5); Carbon Dioxide 28 mmol/L (22-29); Chloride 90 mmol/L (98-107); Glomerular Filtration Rate 25.3 mL/min (90-130); Glucose 77 mg/dL (65-115); Osmolality Calculated 284 mOsm/kg (285-295); Potassium 5.8 mmol/L (3.5-5.1); Sodium 129 mmol/L (136-145)
--- NOTE | 2020-05-22 18:09 | ECG_ITS ---
[facility] Test Date: 2020-05-22 Pat Name: Williams Ross Department: Room: 102 Gender: Male Mother Baby Rn: : 1960 Requested By: Parag Fischer Order Number: [id number] Katrina MD: Minh Bower M.D. Measurements Intervals [place] Rate: 80 P: ID: QRS: 69 QRSD: 121 T: 7 QT: 316 QTc: 366 Interpretive Statements ATRIAL FIBRILLATION MODERATE INTRAVENTRICULAR CONDUCTION DELAY [110+ ms QRS DURATION] Compared to ECG 05/22/2020 14:34:45 Intraventricular conduction delay now present Electronically Signed On 05-23-2020 17:48:57 NETWORK OPERATIONS ANALYST by Minh Bower M.D. [email or web address]/OM/[id number]
[2020-05-22] MEDS: sodium chloride 0.9% 1,000 ML 50 ML IV (18:36)
[2020-05-22] MEDS: pantoprazole DR 40 mg Tablet PO (18:38)
[2020-05-22] MEDS: dilTIAZem ER (24HR) 240 mg Capsule PO (18:39)
[2020-05-22] MEDS: apixaban 5 mg Tablet PO (18:39)
[2020-05-22 19:14] LABS: Troponin 5 6HR 88.95 ng/L (0-15); Troponin 5 6HR Delta -12.05 ng/L (0-12)
[2020-05-22] MEDS: sodium polystyrene sulfonate 15 gm/60 mL Btl PO (20:02)
[2020-05-22] MEDS: metoprolol tartrate 50 mg Tablet PO (20:02)
[2020-05-22] MEDS: atorvastatin 40 mg Tablet 80 MG PO (20:02)
--- NOTE | 2020-05-22 23:07 | PM.CONSULT ---
Providers/Reason For Consult Consulting Physican/Specialty*: Minh Bower MD/ Cardiology Reason for Consult*: Chest pain/EKG changes/ atrial fibrillation Requesting Physcian: Issa Meek MD Attending Physician: Issa Meek MD Primary Care Provider: Arsalan Mak MD History of Present Illness History of Present Illness Williams Ross is a 59 year old male who presented to hospital for renal failure after we received his lab workup results. Patient was admitted last month with afib and new onset heart failure. Patient was started on Lasix and lost about 60 pounds. He was seen in our office as initial consult and we ordered labs, that showed his creatinine had worsened to 1.6 from baseline of 1.1. We held his lasix, however, repeat BMP after 1 week showed further worsening of renal function to 2.2 He was advised to come to ER. On way to ER he felt clammy and had chest discomfort. His initial troponin was elevated but did not trend higher. He says that he has been having on and off chest pain that has worsened recently. We had ordered outpatient stress test on recent office visit. EKG on presentation had borderline ST elevation that resolved with improvement in hyperkalemia. Review of Systems Const: Reports: fatigue and malaise; Denies: fever(s) or chills Eyes: Denies: change in vision or blurry vision ENMT: Denies: nasal congestion Card: Reports: chest pain and lightheadedness; Denies: palpitations, edema, syncope or pre-syncope Resp: Denies: dyspnea, productive cough, non-productive cough or wheezing GI: Denies: abdominal pain, nausea, vomiting, hematemesis, diarrhea, constipation, hematochezia or melena : Denies: flank pain, difficulty urinating, dysuria or urinary frequency Musc: Denies: neck pain or back pain Skin/Breast: Denies: rash Neuro: Denies: headache(s), dizziness or vertigo Psych: Denies: anxiety or depression Endo: Denies: polyuria or polydipsia Meds/Allergies Home Medications and Allergies Home Medications Medication Instructions Recorded Confirmed Last Taken Type lisinopril-hydrochlorothiazide 1 tab PO DAILY@17 04/30/20 05/22/20 05/21/20 History furosemide 40 mg tablet 40 mg PO BID tab 05/11/20 05/22/20 05/22/20 History see pharmacy comment apixaban [Eliquis] 5 mg PO BID@05/22/20 05/22/20 05/22/20 08:00 History digoxin 250 mcg PO DAILY@05/22/20 05/22/20 05/22/20 08:00 History diltiazem HCl [Cardizem CD] 240 mg PO DAILY@05/22/20 05/22/20 05/21/20 History metoprolol tartrate 50 mg PO BID@05/22/20 05/22/20 05/22/20 08:00 History ondansetron HCl 4 mg PO Q6H PRN 05/22/20 05/22/20 Unknown History potassium chloride [Klor-Con M20] 20 meq PO DAILY@05/22/20 05/22/20 05/22/20 History sour arboleda extract [Tart Arboleda 1,000 mg PO DAILY 05/22/20 05/22/20 05/22/20 History Extract] tramadol 50 mg PO Q6H PRN 05/22/20 05/22/20 Unknown History vit C,I-So-sotec-lutein-zeaxan 1 tab PO DAILY 05/22/20 05/22/20 Unknown History [PreserVision AREDS-2] Allergies Allergy/AdvReac Type Severity Reaction Status Date / Time No Known Allergies Allergy Verified 05/22/20 13:20 Current Medications Current Medications Generic Name Dose Route Start Last Admin Trade Name Freq PRN Reason Stop Dose Admin Apixaban 5 mg 05/22/20 18:30 05/22/20 18:39 Apixaban 5 Mg Tablet PO 5 mg BID@ CHINEDU Administration Atorvastatin Calcium 80 mg 05/22/20 21:00 05/22/20 20:02 Atorvastatin 40 Mg Tablet PO 80 mg BEDTIME CHINEDU Administration Diltiazem HCl 240 mg 05/22/20 18:30 05/22/20 18:39 Diltiazem Er (24hr) 240 Mg Capsule PO 240 mg DAILY@17 CHINEDU Administration Sodium Chloride 1,000 mls @ 50 mls/hr 05/22/20 17:59 05/22/20 18:36 Sodium Chloride 0.9% IV 50 mls/hr .Q20H CHINEDU Administration Metoprolol Tartrate 50 mg 05/22/20 19:00 05/22/20 20:02 Metoprolol Tartrate 50 Mg Tablet PO 50 mg BID@09,19 CHINEDU Administration Pantoprazole Sodium 40 mg 05/22/20 18:00 05/22/20 18:[address] 40 Mg Tablet PO 40 mg BID CHINEDU Administration Sodium Polystyrene Sulfonate 15 gm 05/22/20 20:00 05/22/20 20:02 Sodium Polystyrene Sulfonate 15 Gm/60 Ml Btl PO 15 gm Q12H CHINEDU Administration PFSH Acute PFSH: Medical History Arthritis Atrial fibrillation with rapid ventricular response Former smoker Hypertension Hypokalemia Morbid obesity due to excess calories Retained myringotomy tube in left ear Sleep apnea with hypersomnolence Surgical History H/O hernia repair S/P left knee arthroscopy Family History Mother Cancer Liver cancer Social History Smoking and tobacco status: former smoker Alcohol intake: never Vitals/I&O/Wt Last Vital Signs Temp 97.4 F L 05/22/20 20:00 Pulse 81 05/22/20 22:00 Resp 18 05/22/20 20:00 BP 98/67 05/22/20 18:15 Pulse Ox 97 05/22/20 18:15 05/22/20 05/22/20 05/23/20 14:59 22:59 06:59 Output Total 0 / 0 Balance 0 / 0 Weight last 48 hrs Weight 360 lb Physical Exam Const: COMMON NORMALS: no acute distress and patient oriented x3 HENMT: COMMON NORMALS: normocephalic HEAD & SCALP: normocephalic Neck/C-Spine: COMMON NORMALS: no JVD Resp: COMMON NORMALS: normal respiratory effort, No retractions, No use of accessory muscles and clear to auscultation bilaterally AUSCULTATION: clear to auscultation bilaterally Cardio: COMMON NORMALS: no JVD, regular rate, regular rhythm, S1 normal heart sound present and S2 normal heart sound present RATE: regular rate RHYTHM: regular rhythm HEART SOUNDS: S1 normal heart sound present and S2 normal heart sound present GI: COMMON NORMALS: Normal to inspection, nondistended, normoactive bowel sounds present, Soft to palpation, non-tender, No hepatosplenomegaly present, no masses and no bruits PALPATION: Yes Soft to palpation and Yes No hepatosplenomegaly present : OTHER: Has abdominal edema Extremity: COMMON NORMALS: capillary refill normal, no clubbing, cyanosis or edema, no calf tenderness and no pedal edema Neuro: COMMON NORMALS: patient oriented x3 Psych: COMMON NORMALS: mental status grossly normal A&P Assessment and plan (1) Chest pain: Status: Acute (2) Acute hyperkalemia: Status: Acute (3) Acute renal failure: Status: Acute (4) Atrial fibrillation: Status: Acute (5) Elevated troponin: Status: Acute (6) New onset of congestive heart failure: Status: Acute Patient has TIFFANY and hyperkalemia secondary to over diuresis. IV hydration. Close monitoring of renal function and potassium level. Hold nephrotoxic medication. Trend troponin Once renal function normalizes, will proceed with coronary angiogram with possible percutaneous coronary intervention as symptoms are typical and worsening. Thank you for involving us with care of this patient. We will continue to follow. Please call with questions Coding Level of Care Code Acute Follow Up Specialist for [facility]on[facility] Diagnoses Chest pain R07.9 Acute hyperkalemia E87.5 Acute renal failure N17.9 Atrial fibrillation I48.91 Elevated troponin R77.8 New onset of congestive heart failure I50.9
[2020-05-23] VITALS (66 sets, daily range): BP systolic 83–149; BP diastolic 36–91; PULSE 65–88; RESP 14–28; TEMP 36.3–37.1; O2SAT 87–94
--- NOTE | 2020-05-23 03:42 | PC.NURSE ---
Spoke with the daughter of this patient who happens to also be an ER nurse. She states that the patient's lasix was stopped however that the patient continued taking the supplemental potassium and believes this to be the causation of the hyperkalemia
[2020-05-23 03:56] LABS: Basophils # 0.1 10^3/uL (0.0-0.1); Basophils % 1.5 %; Eosinophils # 0.3 10^3/uL (0.0-0.8); Eosinophils % 3.1 %; Hematocrit 50.7 % (42.0-52.0); Lymphocytes # 2.6 10^3/uL (0.8-4.8); Lymphocytes % 32.5 %; Mean Corpuscular HGB Conc 31.6 g/dL (30.0-36.0); Mean Corpuscular Hemoglobin 27.7 pg (28.0-34.0); Mean Corpuscular Volume 87.7 fL (80-94); Mean Platelet Volume 11.6 fL (7.4-10.4); Monocytes # 0.7 10^3/uL (0.2-0.9); Neutrophils # 4.29 10^3/uL (1.8-7.7); Neutrophils % 53.8 %; Nucleated Red Blood Cells % 0 %; Platelet Count 266 10^3/cmm (130-400); Red Blood Count 5.78 10^6/uL (4.1-5.3)
[2020-05-23 04:17] LABS: Alanine Aminotransferase 34 U/L (0-41); Alkaline Phosphatase 102 IU/L (40-130); Anion Gap 15.5 (5-19); Aspartate Amino Transferase 24 U/L (0-40); Blood Urea Nitrogen 57 mg/dL (8-23); Calcium 10.1 mg/dL (8.5-10.5); Carbon Dioxide 29 mmol/L (22-29); Chloride 92 mmol/L (98-107); Globulin 3.3 g/dL (1.3-4.6); Glomerular Filtration Rate 36.3 mL/min (90-130); Glucose 97 mg/dL (65-115); Magnesium 2.1 mg/dL (1.7-2.3); Osmolality Calculated 288 mOsm/kg (285-295); Potassium 5.5 mmol/L (3.5-5.1); Sodium 131 mmol/L (136-145); Total Bilirubin 0.6 mg/dL (0.15-1.2); Total Protein 7.3 g/dL (6.6-8.7)
[2020-05-23 04:30] LABS: Estmated Average Glucose 111; Hemoglobin A1C 5.5 % (4.0-6.0)
[2020-05-23 04:51] LABS: NT Pro B Type Natriuretic Pept 400 pg/mL (0-125)
--- NOTE | 2020-05-23 06:00 | ECG_ITS ---
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 Measurements Intervals [place] Rate: 80 P: [place]: QRS: 41 QRSD: 101 T: 37 QT: 316 QTc: 366 Interpretive Statements ATRIAL FIBRILLATION LOW QRS VOLTAGE IN PRECORDIAL LEADS [QRS DEFLECTION < 1.0 mV IN CHEST LEADS] POSSIBLE RIGHT VENTRICULAR CONDUCTION DELAY [RSR (QR) IN V1/V2] ABNORMAL RHYTHM ECG Compared to ECG 05/22/2020 19:19:23 Low QRS voltage now present Intraventricular conduction delay no longer present Electronically Signed On 05-23-2020 6:05:12 ABRASIVE BAND WINDER by Frieda Higgins M.D. [id number]
--- NOTE | 2020-05-23 07:00 | XR_ITS ---
WS: [id number] Exam: XR chest 1V portable [id number] Date/Time of Exam: 05/23/2020 6:20 AM Reason For Exam: sob Comparison 05/01/2020. The lungs are clear and fully expanded. Normal cardiomediastinal structures and bony elements. No ple ural effusions. Monitoring leads superimpose the chest. XR/XR chest 1V portable [id number] IMPRESSION: 1. No acute cardiopulmonary finding.
[2020-05-23] MEDS: metoprolol tartrate 50 mg Tablet PO ×2 (08:36→18:50)
[2020-05-23] MEDS: pantoprazole DR 40 mg Tablet PO ×2 (08:36→17:09)
[2020-05-23] MEDS: aspirin 81 mg EC Tablet PO (08:36)
[2020-05-23] MEDS: apixaban 5 mg Tablet PO ×2 (08:36→17:08)
[2020-05-23] MEDS: digoxin 125 mcg Tablet PO (08:36)
[2020-05-23] MEDS: sodium polystyrene sulfonate 15 gm/60 mL Btl PO ×2 (08:37→20:17)
--- NOTE | 2020-05-23 09:30 | PC.NURSE ---
patient reported to this nurse doctor came in and told me I could eat and drink this am called Dr Bower to confirm patient could in fact have a cardiac diet at this time
--- NOTE | 2020-05-23 09:39 | PC.CHAP ---
Pastoral Care Encounter/Spiritual Assessment Type of Contact [] Declined svp operations visit [] Patient/Family/Request visit [] Outpatient visit [] Follow-up visit [] Physician referral [] Code/Alert [x] Routine visit [] Staff referral [] Actively dying [] Patient sleeping [] Family support [] [] Out of room [] Palliative care [] [] Receiving care in room [] Pre-surgical visit [] Trauma [] Long length of stay [] ICU visit [] Other: Relational/Emotional Strength [] Patient feels connected with others/family/visitors/staff [] Distress [] Loneliness/isolation [] Abandonment Spirituality of Patient [x] Person of Kiana [] Attends Gnosticism of their Kiana [] Believes in Prayer [] Reads Bible or Nondenominational materials [] There are Spiritual issues to be addressed Area Plant Manager Interventions [x] Prayer [x] Active listening [x] Non-anxious presence [x] Spiritual/emotional support [] Crisis/trauma care [] Spiritual counseling [] Bereavement support [] Provided bereavement packet [] Provided Bible/devotional materials [] Provided toy/stuffed animal, coloring book to patient or family member [] Provided Communion [] Anointing/Independence [] Salvation [x] Completed spiritual assessment [] Other: Impact on Illness or Injury [] Angry [] Fearful [] Anxious [] Often cries [] Exhaustion [] Unable to work [] Unable to attend religion [] Unable to walk/stand [] Unable to read [] Unable to drive [] Unable to eat/drink [] Unable to sleep [] Unable to be with family [] Patient intubated [] Other: Summary patient resting well... waiting for food tray.. tests canceled for today.. Time spent with patient 10 min
[2020-05-23] MEDS: sodium chloride 0.9% 1,000 ML 50 ML IV (13:57)
[2020-05-23] MEDS: dilTIAZem ER (24HR) 240 mg Capsule PO (16:55)
--- NOTE | 2020-05-23 17:10 | P.PN_ITS ---
Subjective Subjective: Interval history: Patient was seen this morning, he tells me that he is doing better, he still feels fatigued, no chest pain episodes overnight, no fevers, chills, nausea, vomiting Vitals/I&O/Wt Last Vital Signs Temp 98.6 F 05/23/20 14:37 Pulse 77 05/23/20 14:37 Resp 15 05/23/20 14:37 BP 115/62 05/23/20 14:37 Pulse Ox 93 05/23/20 14:37 05/23/20 05/23/20 05/23/20 06:59 14:59 22:59 Intake Total 1207.5 / 1207.5 Balance 1207.5 / 1207.5 Weight last 48 hrs Weight 163.293 kg Physical Exam Const: COMMON NORMALS: no acute distress and patient oriented x3 HENMT: COMMON NORMALS: normocephalic HEAD & SCALP: normocephalic Neck/C-Spine: COMMON NORMALS: no JVD Resp: COMMON NORMALS: normal respiratory effort, No retractions, No use of accessory muscles and clear to auscultation bilaterally AUSCULTATION: clear to auscultation bilaterally Cardio: COMMON NORMALS: no JVD, regular rate, regular rhythm, S1 normal heart sound present and S2 normal heart sound present RATE: regular rate RHYTHM: regular rhythm HEART SOUNDS: S1 normal heart sound present and S2 normal heart sound present GI: COMMON NORMALS: Normal to inspection, nondistended, normoactive bowel sounds present, Soft to palpation, non-tender, No hepatosplenomegaly present, no masses and no bruits PALPATION: Yes Soft to palpation and Yes No hepatosplenomegaly present : OTHER: Has abdominal edema Extremity: COMMON NORMALS: capillary refill normal, no clubbing, cyanosis or edema, no calf tenderness and no pedal edema Neuro: COMMON NORMALS: patient oriented x3 Psych: COMMON NORMALS: mental status grossly normal Data : 05/23/20 03:40 05/23/20 03:40 A&P Assessment and plan (1) Acute hyperkalemia: -Did have nonspecific ST-T wave changes on initial EKG, which subsequently have resolved -Patient was given insulin, D50, calcium gluconate in the ER -Potassium 5.5 -Continue Kayexalate -Needs telemetry monitoring Status: Acute (2) Acute renal failure: -Likely secondary to Lasix, lisinopril hydrochlorothiazide -Hold medications as above -Gentle IV hydration at 50 cc an hour Status: Acute (3) Chest pain: -Patient had an outpatient stress test ordered -Continue aspirin, statin -Monitor for chest pain, telemetry monitoring -6-hour troponin 88.95 -Plan if patient's kidney function continues to improve, will perform cardiac catheterization hopefully on -Cardiology on consult Status: Acute (4) Hypercapnic respiratory failure: -Has a history of chronic hypercapnia -Encourage CPAP use during the night -Currently no episodes of confusion Status: Acute (5) Obesity hypoventilation syndrome: Status: Acute (6) New onset of congestive heart failure: Does not look fluid overloaded, hold Lasix Status: Acute (7) Atrial fibrillation: Continue Cardizem, reduce dose, digoxin based on creatinine clearance, continue metoprolol Status: Acute Attestations Medical Necessity Statement*: Patient requires hospitalization due to hyperkalemia, acute renal failure, chest pain, plan on performing cardiac catheterization on Coding Level of Care Code Acute Public Health Informatician for [facility] Diagnoses Acute hyperkalemia E87.5 Acute renal failure N17.9 Chest pain R07.9 Hypercapnic respiratory failure J96.92 Obesity hypoventilation syndrome E66.2 New onset of congestive heart failure I50.9 Atrial fibrillation I48.91
[2020-05-23] MEDS: atorvastatin 40 mg Tablet 80 MG PO (20:17)
--- NOTE | 2020-05-23 21:02 | PC.NURSE ---
NURSING NOTE; ASSUMPTION OF CARE: ASSUMED CARE OF PATIENT AT THIS TIME. PT ALERT AND ORIENTED X4; MOVES ALL EXTREMITIES AND FOLLOWS COMMANDS. DENIES PAIN AT THIS TIME. CURRENTLY WATCHING TELEVISION. ALL VS AND ASSESSMENTS CHARTED. DENIES NEEDS AT THIS TIME.
--- NOTE | 2020-05-23 21:41 | PM.PN ---
Subjective Subjective: Interval history: Patient is doing well. He denies any complaints of chest pain, shortness of breath or palpitations. He is receiving IV fluids, kidney function improving. Vitals/I&O/Wt Last Vital Signs Temp 97.6 F 05/23/20 20:00 Pulse 85 05/23/20 20:00 Resp 18 05/23/20 20:00 BP 146/88 05/23/20 20:00 Pulse Ox 94 05/23/20 20:00 05/23/20 05/23/20 05/23/20 06:59 14:59 22:59 Intake Total 1207.5 / 1207.5 240 / 1447.5 Balance 1207.5 / 1207.5 240 / 1447.5 Weight last 48 hrs Weight 360 lb Physical Exam Const: COMMON NORMALS: no acute distress and patient oriented x3 HENMT: COMMON NORMALS: normocephalic HEAD & SCALP: normocephalic Neck/C-Spine: COMMON NORMALS: no JVD Resp: COMMON NORMALS: normal respiratory effort, No retractions, No use of accessory muscles and clear to auscultation bilaterally AUSCULTATION: clear to auscultation bilaterally Cardio: COMMON NORMALS: no JVD, regular rate, regular rhythm, S1 normal heart sound present and S2 normal heart sound present RATE: regular rate RHYTHM: regular rhythm HEART SOUNDS: S1 normal heart sound present and S2 normal heart sound present GI: COMMON NORMALS: Normal to inspection, nondistended, normoactive bowel sounds present, Soft to palpation, non-tender, No hepatosplenomegaly present, no masses and no bruits PALPATION: Yes Soft to palpation and Yes No hepatosplenomegaly present : OTHER: Has abdominal edema Extremity: COMMON NORMALS: capillary refill normal, no clubbing, cyanosis or edema, no calf tenderness and no pedal edema Neuro: COMMON NORMALS: patient oriented x3 Psych: COMMON NORMALS: mental status grossly normal Data : 05/24/20 04:41 05/24/20 04:41 A&P Assessment and plan (1) Chest pain: Status: Acute (2) Acute hyperkalemia: Status: Acute (3) Acute renal failure: Status: Acute (4) Atrial fibrillation: Status: Acute (5) Elevated troponin: Status: Acute (6) New onset of congestive heart failure: Status: Acute Patient has TIFFANY and hyperkalemia secondary to over diuresis. Renal function is improved from creatinine of 2.6-1.9 today. IV hydration. Close monitoring of renal function and potassium level. Hold nephrotoxic medication. Troponins did not trend up. Once renal function normalizes, will proceed with coronary angiogram with possible percutaneous coronary intervention as symptoms are typical and worsening. Thank you for involving us with care of this patient. We will continue to follow. Please call with questions Attestations Medical Necessity Statement*: Care expected to cross 2 midnights. 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
[2020-05-24] VITALS (13 sets, daily range): BP systolic 123–155; BP diastolic 67–88; PULSE 77–94; RESP 13–24; TEMP 36.4–37; O2SAT 89–97
[2020-05-24 04:56] LABS: Basophils # 0.1 10^3/uL (0.0-0.1); Basophils % 1.4 %; Eosinophils # 0.2 10^3/uL (0.0-0.8); Eosinophils % 2.7 %; Hematocrit 50.4 % (42.0-52.0); Lymphocytes # 2.3 10^3/uL (0.8-4.8); Lymphocytes % 31.7 %; Mean Corpuscular HGB Conc 31.7 g/dL (30.0-36.0); Mean Corpuscular Hemoglobin 27.8 pg (28.0-34.0); Mean Corpuscular Volume 87.7 fL (80-94); Mean Platelet Volume 11.7 fL (7.4-10.4); Monocytes # 0.6 10^3/uL (0.2-0.9); Monocytes % 8.2 %; Neutrophils % 55.9 %; Nucleated Red Blood Cells % 0 %; Platelet Count 256 10^3/cmm (130-400); Red Blood Count 5.75 10^6/uL (4.1-5.3); Red Cell Distribution Width 13.9 % (12.1-15.1); White Blood Count 7.3 10^3/uL (4.0-10.0)
[2020-05-24 05:09] LABS: Alanine Aminotransferase 31 U/L (0-41); Albumin Level 4.1 g/dL (3.5-5.2); Alkaline Phosphatase 101 IU/L (40-130); Anion Gap 14.6 (5-19); Aspartate Amino Transferase 21 U/L (0-40); Blood Urea Nitrogen 44 mg/dL (8-23); Calcium 9.9 mg/dL (8.5-10.5); Carbon Dioxide 28 mmol/L (22-29); Chloride 95 mmol/L (98-107); Globulin 3.2 g/dL (1.3-4.6); Glomerular Filtration Rate 51.7 mL/min (90-130); Glucose 107 mg/dL (65-115); Magnesium 1.9 mg/dL (1.7-2.3); Osmolality Calculated 288 mOsm/kg (285-295); Phosphorus 3.9 mg/dL (2.5-4.5); Potassium 4.6 mmol/L (3.5-5.1); Sodium 133 mmol/L (136-145); Total Bilirubin 0.5 mg/dL (0.15-1.2); Total Protein 7.3 g/dL (6.6-8.7)
[2020-05-24 05:22] LABS: NT Pro B Type Natriuretic Pept 364 pg/mL (0-125)
--- NOTE | 2020-05-24 06:00 | ECG_ITS ---
[facility] Test Date: 2020-05-24 Pat Name: Williams Ross Department: Room: 102 Gender: Male Medical Reimbursement Specialist: : 1960 Requested By: Issa Meek Order Number: [id number] Reading MD: DESIREE LUNDY Measurements Intervals [place] Rate: 91 P: [place]: QRS: 46 QRSD: 114 T: 1 QT: 327 QTc: 403 Interpretive Statements ATRIAL FIBRILLATION LOW QRS VOLTAGE IN PRECORDIAL LEADS [QRS DEFLECTION < 1.0 mV IN CHEST LEADS] MODERATE INTRAVENTRICULAR CONDUCTION DELAY [110+ ms QRS DURATION] ABNORMAL RHYTHM ECG Compared to ECG 05/23/2020 05:49:56 Intraventricular conduction delay now present Electronically Signed On 05-24-2020 20:09:06 SCUBA DIVING TEACHER by DESIREE LUNDY [id number]
[2020-05-24] MEDS: sodium polystyrene sulfonate 15 gm/60 mL Btl PO (08:16)
--- NOTE | 2020-05-24 08:41 | PC.NURSE ---
verbal instructions from Dr. Bower at this time to hold lexus for future procedure
[2020-05-24] MEDS: pantoprazole DR 40 mg Tablet PO ×2 (09:10→17:23)
[2020-05-24] MEDS: aspirin 81 mg EC Tablet PO (09:11)
[2020-05-24] MEDS: metoprolol tartrate 50 mg Tablet PO ×2 (09:11→18:45)
[2020-05-24] MEDS: digoxin 125 mcg Tablet PO (09:11)
--- NOTE | 2020-05-24 09:36 | PM.PN ---
Subjective Subjective: Interval history: Patient is doing well. His renal function continues to improve. He denies any further chest pain complaints. No shortness of breath Vitals/I&O/Wt Last Vital Signs Temp 98.6 F 05/24/20 06:55 Pulse 94 05/24/20 09:11 Resp 24 H 05/24/20 06:55 BP 134/82 05/24/20 06:55 Pulse Ox 94 05/24/20 06:55 05/23/20 05/24/20 05/24/20 22:59 06:59 14:59 Intake Total 240 / 1447.5 240 / 1687.5 360 / 360 Output Total 350 / 350 Balance -110 / 1097.5 240 / 1337.5 360 / 360 Weight last 48 hrs Weight 360 lb Physical Exam Const: COMMON NORMALS: no acute distress and patient oriented x3 HENMT: COMMON NORMALS: normocephalic HEAD & SCALP: normocephalic Neck/C-Spine: COMMON NORMALS: no JVD Resp: COMMON NORMALS: normal respiratory effort, No retractions, No use of accessory muscles and clear to auscultation bilaterally AUSCULTATION: clear to auscultation bilaterally Cardio: COMMON NORMALS: no JVD, regular rate, regular rhythm, S1 normal heart sound present and S2 normal heart sound present RATE: regular rate RHYTHM: regular rhythm HEART SOUNDS: S1 normal heart sound present and S2 normal heart sound present GI: COMMON NORMALS: Normal to inspection, nondistended, normoactive bowel sounds present, Soft to palpation, non-tender, No hepatosplenomegaly present, no masses and no bruits PALPATION: Yes Soft to palpation and Yes No hepatosplenomegaly present : OTHER: Has abdominal edema Extremity: COMMON NORMALS: capillary refill normal, no clubbing, cyanosis or edema, no calf tenderness and no pedal edema Neuro: COMMON NORMALS: patient oriented x3 Psych: COMMON NORMALS: mental status grossly normal Data : 05/24/20 04:41 05/24/20 04:41 A&P Assessment and plan (1) Chest pain: Status: Acute (2) Acute hyperkalemia: Status: Acute (3) Acute renal failure: Status: Acute (4) Atrial fibrillation: Status: Acute (5) Elevated troponin: Status: Acute (6) New onset of congestive heart failure: Status: Acute Patient has TIFFANY and hyperkalemia secondary to over diuresis. Renal function continues to improve with IV hydration. Creatinine is 1.4 today. IV hydration. Close monitoring of renal function and potassium level. Hold nephrotoxic medication. Troponins did not trend up. Plan for coronary angiography tomorrow if creatinine improve further. NPO past midnight. Hold Eliquis Thank you for involving us with care of this patient. We will continue to follow. Please call with questions Attestations Medical Necessity Statement*: Care expected to cross 2 midnights. 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
[2020-05-24] MEDS: sodium chloride 0.9% 1,000 ML IV (10:17)
--- NOTE | 2020-05-24 14:45 | P.PN_ITS ---
Subjective Subjective: Interval history: This morning patient was examined, he is feeling better, his kidney function has improved, no shortness of breath, no chest pain, no edema, hopefully patient will undergo a cardiac catheterization tomorrow morning Vitals/I&O/Wt Last Vital Signs Temp 97.5 F L 05/24/20 12:00 Pulse 93 05/24/20 14:00 Resp 23 H 05/24/20 12:00 BP 130/72 05/24/20 12:00 Pulse Ox 93 05/24/20 12:00 05/23/20 05/24/20 05/24/20 22:59 06:59 14:59 Intake Total 240 / 1447.5 240 / 1687.5 1480 / 1480 Output Total 350 / 350 Balance -110 / 1097.5 240 / 1337.5 1480 / 1480 Physical Exam 2 Const: COMMON NORMALS: no acute distress and patient oriented x3 HENMT: COMMON NORMALS: normocephalic HEAD & SCALP: normocephalic Neck/C-Spine: COMMON NORMALS: no JVD Resp: COMMON NORMALS: normal respiratory effort, No retractions, No use of accessory muscles and clear to auscultation bilaterally AUSCULTATION: clear to auscultation bilaterally Cardio: COMMON NORMALS: no JVD, regular rate, regular rhythm, S1 normal heart sound present and S2 normal heart sound present RATE: regular rate RHYTHM: regular rhythm HEART SOUNDS: S1 normal heart sound present and S2 normal heart sound present GI: COMMON NORMALS: Normal to inspection, nondistended, normoactive bowel sounds present, Soft to palpation, non-tender, No hepatosplenomegaly present, no masses and no bruits PALPATION: Yes Soft to palpation and Yes No hepatosplenomegaly present Extremity: COMMON NORMALS: capillary refill normal, no clubbing, cyanosis or edema, no calf tenderness and no pedal edema Neuro: COMMON NORMALS: patient oriented x3 Psych: COMMON NORMALS: mental status grossly normal Data : 05/24/20 04:41 05/24/20 04:41 A&P Assessment and plan (1) Acute hyperkalemia: -Did have nonspecific ST-T wave changes on initial EKG, which subsequently have resolved -Patient was given insulin, D50, calcium gluconate in the ER -Potassium 4.6 -Continue Kayexalate -Needs telemetry monitoring Status: Acute (2) Acute renal failure: -Likely secondary to Lasix, lisinopril hydrochlorothiazide -Hold medications as above -Creatinine 1.4 -Gentle IV hydration at 50 cc an hour Status: Acute (3) Chest pain: -Patient had an outpatient stress test ordered -Continue aspirin, statin -Monitor for chest pain, telemetry monitoring -6-hour troponin 88.95 -Plan on cardiac catheterization tomorrow morning -Cardiology on consult Status: Acute (4) Hypercapnic respiratory failure: -Has a history of chronic hypercapnia -Encourage CPAP use during the night -Currently no episodes of confusion Status: Acute (5) Obesity hypoventilation syndrome: Status: Acute (6) New onset of congestive heart failure: Does not look fluid overloaded, hold Lasix Status: Acute (7) Atrial fibrillation: Continue Cardizem, reduce dose, digoxin based on creatinine clearance, continue metoprolol Status: Acute Attestations Medical Necessity Statement*: Patient requires hospitalization for acute hyperkalemia, renal failure, chest pain, will have cardiac catheterization tomorrow morning Coding Level of Care Code Acute 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
[2020-05-24] MEDS: dilTIAZem ER (24HR) 240 mg Capsule PO (17:23)
[2020-05-24] MEDS: atorvastatin 40 mg Tablet 80 MG PO (20:40)
--- NOTE | 2020-05-24 22:06 | PC.NURSE ---
PT IS RESTING IN BED. PT DENIES PAIN AT THIS TIME. WILL CONTINUE TO MONITOR.
[2020-05-25] VITALS (23 sets, daily range): BP systolic 113–147; BP diastolic 55–81; PULSE 68–126; RESP 15–28; TEMP 36.5–36.8; O2SAT 86–94
[2020-05-25 05:26] LABS: Alanine Aminotransferase 33 U/L (0-41); Alkaline Phosphatase 100 IU/L (40-130); Anion Gap 14.3 (5-19); Aspartate Amino Transferase 24 U/L (0-40); Blood Urea Nitrogen 31 mg/dL (8-23); Calcium 9.6 mg/dL (8.5-10.5); Carbon Dioxide 30 mmol/L (22-29); Chloride 99 mmol/L (98-107); Globulin 3.3 g/dL (1.3-4.6); Glomerular Filtration Rate 56.3 mL/min (90-130); Glucose 99 mg/dL (65-115); Magnesium 1.8 mg/dL (1.7-2.3); Osmolality Calculated 295 mOsm/kg (285-295); Phosphorus 3.8 mg/dL (2.5-4.5); Potassium 4.3 mmol/L (3.5-5.1); Sodium 139 mmol/L (136-145); Total Bilirubin 0.5 mg/dL (0.15-1.2); Total Protein 7.3 g/dL (6.6-8.7)
[2020-05-25 05:47] LABS: NT Pro B Type Natriuretic Pept 534 pg/mL (0-125)
[2020-05-25 05:49] LABS: Basophils # 0.1 10^3/uL (0.0-0.1); Basophils % 1.3 %; Eosinophils # 0.2 10^3/uL (0.0-0.8); Eosinophils % 2.6 %; Hematocrit 49.9 % (42.0-52.0); Hemoglobin 15.6 g/dL (11.7-16.6); Lymphocytes # 2.5 10^3/uL (0.8-4.8); Lymphocytes % 33.2 %; Mean Corpuscular HGB Conc 31.3 g/dL (30.0-36.0); Mean Corpuscular Hemoglobin 27.7 pg (28.0-34.0); Mean Corpuscular Volume 88.5 fL (80-94); Monocytes # 0.6 10^3/uL (0.2-0.9); Monocytes % 8.2 %; Neutrophils # 4.17 10^3/uL (1.8-7.7); Neutrophils % 54.6 %; Nucleated Red Blood Cells % 0 %; Platelet Count 238 10^3/cmm (130-400); Red Blood Count 5.64 10^6/uL (4.1-5.3); Red Cell Distribution Width 13.6 % (12.1-15.1); White Blood Count 7.7 10^3/uL (4.0-10.0)
--- NOTE | 2020-05-25 06:00 | ECG_ITS ---
[facility] Test Date: 2020-05-25 Pat Name: Williams Ross Department: Room: 102 Gender: Male Grove Superintendent: jessy DUNHAM: 1960 Requested By: Issa Meek Order Number: [id number] Katrina MD: Deo Perea M.D. Measurements Intervals [place] Rate: 79 P: [place]: QRS: 58 QRSD: 116 T: 32 QT: 345 QTc: 398 Interpretive Statements ATRIAL FIBRILLATION MODERATE INTRAVENTRICULAR CONDUCTION DELAY [110+ ms QRS DURATION] ABNORMAL RHYTHM ECG Compared to ECG 05/24/2020 05:55:49 No significant changes Electronically Signed On 05-25-2020 20:10:24 SYRUP MACHINE LABORER by Deo Perea M.D. [id number]
--- NOTE | 2020-05-25 06:20 | XACV_ITS ---
Wt: 163 kg BSA: 3.01 m2 Gender: Male : 1960 Any Known Allergies: No known allergies Exam Priority: Routine Procedure(s): Procedure Description: Diagnostic procedure Procedure Description: Coronary angiography Diagnostic Cath Status: Urgent Diagnostic Findings * No significant disease noted in the Left Main, LAD, Circumflex, or RCA coronary arteries. * Coronary angiography shows right dominance. Conclusions 1. No significant disease noted in the Left Main, LAD, Circumflex, or RCA coronary arteries. Recommendations * Aggressive therapy for atrial fibrillation. * Continue IV hydration. * Monitor renal function. Interventional RX Recommendation: none Diagnostic RX Recommendation: medical therapy and/or counseling Clinical Evaluation EBL: 5mL-10mL Procedural Details Procedure Consent Obtained. Pre-Procedure Time Out. Identified patient by full name and date of as verbalized by the patient/guarantor. Does the consent match the physician's order: Yes. Accurate & Complete Informed Consent: Yes. Inpatient/Outpatient History & Physical on Chart: Yes. If H&P is completed, is and addenduem needed: No; If yes, is the addendum complete: N/A. Visualize and Verify Site with Patient/Guarantor: N/A. Relevant Radiology Images available: Yes. Pre-op teaching completed and patient verbalized understanding. The risks, benefits, and alternatives of sedation and/or procedure were discussed by physician. The patient agrees to continue. Procedure started. Current Diagnosis : NSTEMI. [facility] Clinical Fraility Score: 4: Vulnerable. Oil Well Logging Engineer Indications: ACS > 24 hours. Chest Pain Symptom Assessment: Typical Angina Symptoms. Correct patient, site and procedure confirmed by cath team. Current diagnosis: NSTEMI. PERRLA. Strong, equal hand director enterprise systems bilaterally. Lungs clear x 5 lobes. A 18 gauge IV was started in the left anticubital using aseptic technique. IV Fluids: 0.9% NaCl at KVO. 200 mL infused prior to labor relations analyst. Pre Procedural Pulses: right radial was 2+. Oxygen started at 2liters/min via nasal canula. right groin was prepped with chloroprep then draped in the usual sterile fashion. right radial was prepped with chloroprep then draped in the usual sterile fashion. Physician notified. Ash Conde [facility] MANUFACTURING MAINTENANCE MANAGER in assisting as a scrub. Equipment: 6F - Radial. Cardiac Cath Pack. ACIST Manifold Kit Model BT 2000. Heparinized Saline (2 units/mL), 1000 mL bag. Baseline sample Acquired. HR: 77 BPM. Bed and hemodynamics system not working. Performing a reboot on system. Vital chart was stopped. Procedure started. Physician arrived. Physician scrubbed in. Immediate Pre-Procedure Time Out. Correct Patient: Yes; Correct Procedure: Yes; Correct Site: Yes; Correct Patient Position: Yes; Correct Supplies: Yes; Dried Flammable Prep: Yes; Blood Products Available: No;. Lidocaine 1% infiltrated to the right radial. Arterial access obtained. A 5 stateless TIG catheter in over wire. Catheter redirected to the RCA. Catheter out. A 5 stateless JL4 catheter in over wire. Catheter out. A 5 stateless 125cm TIG catheter in over wire. Catheter redirected to the RCA. Multiple views taken of right coronary artery. Catheter redirected to the LCA. 6FR 125cm JL4 catheter inserted over the wire. Multiple views taken of left coronary artery. Catheter out. A TR Band was successful obtaining hemostatsis at the Right Radial artery insertion site. PERRLA. Strong, equal hand director enterprise systems bilaterally. No VTE prophylaxis required. Medication's Wasted: Lidocaine 1% = 18 mL. Medication's Wasted: Nitro = 49.8 mg. Medication's Wasted: Heparin = 1000 units. Total IV fluids: 50 mL. Contrast type used: Visipaque 320 mgI/mL, 500 mL bottle. Post-op diagnosis: Normal Coronaries. Complications: None. Estimated blood loss: 5mL-10mL. Procedure completed. Patient transferred by wheelchair to 1st floor. Vital chart was stopped. Access Site Site: Right Radial artery Sheath Size: 6 Fr Hemostasis Method: TR Band Hemostasis Success: Successful Procedure Medications Start: 6:54 AM Stop: 6:54 AM Medication: Diphendryamine Amount: 50 mg Route: I.V. Start: 7:23 AM Stop: 7:23 AM Medication: Fentanyl Amount: 50 mcg Route: I.V. Start: 7:24 AM Stop: 7:24 AM Medication: Versed Amount: 1 mg Start: 7:31 AM Stop: 7:31 AM Medication: Heparin Amount: 5000 units Route: I.V. I, the attending physician, have reviewed and verified all procedure medications. Yes, all medications given per verbal order History/Risk Factors Hypertension: Yes Dyslipidemia: No Peripheral Arterial Disease (PAD): No Myocardial Infarction (HI): No Obesity: Yes Renal Disease: No Tobacco Use: Former Prior Interventions PCI: No CABG: No Valve Surgery: No Report Signatures Finalized by Minh Bower MD on 05/31/2020 05:21 PM
--- NOTE | 2020-05-25 07:14 | W.PM.OPSUD ---
Surgery/Procedure H&P Update DATE OF PROCEDURE: May 25, 2020 DATE H&P PERFORMED: 05/22/20 H&P UPDATE INFORMATION: I have reviewed H&P completed within last 30 days, I have examined patient prior to procedure and No changes to prior documentation CHANGES TO PREVIOUS DOCUMENTATION: Patient has been having on and off typical chest pain symptoms. These are associated with diaphoresis. Patient was initially scheduled to have outpatient stress test but patient continues having severe worsening symptoms with plan for coronary angiography PREOP DIAGNOSIS: Worsening angina PRIMARY INDICATION FOR PROCEDURE: Worsening angina PLANNED PROCEDURE: Operation Date: 05/25/20 07:00 Proposed Procedures p Cardiac Catheterization(Left) - Minh Bower M.D Possible percutaneous coronary intervention PATIENT REASSESSED PRIOR TO SEDATION, WITH NO CHANGE NOTED: Yes PHYSICAL EXAM: alert, oriented x 3 and clear to auscultation bilaterally AIRWAY EVAL/ANESTHESIA PLAN: ASA III, Risks, benefits & alternatives of sedation and/or procedure discussed and Patient agrees to continue as planned
--- NOTE | 2020-05-25 10:10 | PC.NURSE ---
Call placed to Dr. Bower regarding patient's meds that are on hold from [facility].
--- NOTE | 2020-05-25 10:11 | PC.NURSE ---
At 0915. Removed 3 ml air from TR band and right radial site began oozing. Repladed the 3 ml air.
[2020-05-25] MEDS: pantoprazole DR 40 mg Tablet PO (10:46)
[2020-05-25] MEDS: metoprolol tartrate 50 mg Tablet PO (10:47)
--- NOTE | 2020-05-25 11:22 | P.PN_ITS ---
Subjective Subjective: Interval history: Patient was examined after his cardiac catheterization procedure, he is doing well, his cardiac catheterization was within normal limits, no significant obstructive CAD, no chest pain events overnight, no shortness of breath, Vitals/I&O/Wt Last Vital Signs Temp 98.2 F 05/25/20 11:05 Pulse 80 05/25/20 11:05 Resp 25 H 05/25/20 11:05 BP 137/73 05/25/20 11:05 Pulse Ox 92 05/25/20 11:05 05/24/20 05/25/20 05/25/20 22:59 06:59 14:59 Intake Total 638.333 / 2118.333 0 / 2118.333 360 / 360 Balance 638.333 / 2118.333 0 / 2118.333 360 / 360 Physical Exam Const: COMMON NORMALS: no acute distress and patient oriented x3 HENMT: COMMON NORMALS: normocephalic HEAD & SCALP: normocephalic Neck/C-Spine: COMMON NORMALS: no JVD Resp: COMMON NORMALS: normal respiratory effort, No retractions, No use of accessory muscles and clear to auscultation bilaterally AUSCULTATION: clear to auscultation bilaterally Cardio: COMMON NORMALS: no JVD, regular rate, regular rhythm, S1 normal heart sound present and S2 normal heart sound present RATE: regular rate RHYTHM: regular rhythm HEART SOUNDS: S1 normal heart sound present and S2 normal heart sound present GI: COMMON NORMALS: Normal to inspection, nondistended, normoactive bowel sounds present, Soft to palpation, non-tender, No hepatosplenomegaly present, no masses and no bruits PALPATION: Yes Soft to palpation and Yes No hepatosplenomegaly present Extremity: COMMON NORMALS: capillary refill normal, no clubbing, cyanosis or edema, no calf tenderness and no pedal edema Neuro: COMMON NORMALS: patient oriented x3 Psych: COMMON NORMALS: mental status grossly normal Data : 05/25/20 04:20 05/25/20 04:52 A&P Assessment and plan (1) Acute hyperkalemia: -Did have nonspecific ST-T wave changes on initial EKG, which subsequently have resolved -Patient was given insulin, D50, calcium gluconate in the ER -Potassium 4.3 -Stop Kayexalate -Needs telemetry monitoring Status: Acute (2) Acute renal failure: -Likely secondary to Lasix, lisinopril hydrochlorothiazide -Hold medications as above -Creatinine 1.3 -Gentle IV hydration at 50 cc an hour Status: Acute (3) Chest pain: -Patient had an outpatient stress test ordered -Continue aspirin, statin -Monitor for chest pain, telemetry monitoring -6-hour troponin 88.95 -Cardiac cath within normal limits, plan on IV hydration for the next 3 4 hours discharge tomorrow -Cardiology on consult Status: Acute (4) Hypercapnic respiratory failure: -Has a history of chronic hypercapnia -Encourage CPAP use during the night -Currently no episodes of confusion Status: Acute (5) Obesity hypoventilation syndrome: Status: Acute (6) New onset of congestive heart failure: Does not look fluid overloaded, hold Lasix Status: Acute (7) Atrial fibrillation: Continue Cardizem, reduce dose, digoxin based on creatinine clearance, continue metoprolol Status: Acute Attestations Medical Necessity Statement*: Patient requires hospitalization for chest pain, acute hyperkalemia, acute renal failure, status post angiogram, requiring inpatient fluid therapy, likely discharge in the next 24 hours Coding Level of Care Code Acute Travel Physical Therapist for [facility] Diagnoses Acute hyperkalemia E87.5 Acute renal failure N17.9 Chest pain R07.9 Hypercapnic respiratory failure J96.92 Obesity hypoventilation syndrome E66.2 New onset of congestive heart failure I50.9 Atrial fibrillation I48.91
--- NOTE | 2020-05-25 14:00 | PC.NURSE ---
Confirmed with Dr. Bower to continue IV fluids until 2029 this evening at 100ml/hr
[2020-05-25] MEDS: sodium chloride 0.9% 1,000 ML 100 ML IV (15:37)
[2020-05-25] MEDS: dilTIAZem ER (24HR) 240 mg Capsule PO (17:53)
[2020-05-25] MEDS: apixaban 5 mg Tablet PO (17:57)
[2020-05-25] MEDS: atorvastatin 40 mg Tablet 80 MG PO (19:31)
--- NOTE | 2020-05-25 19:33 | PC.NURSE ---
Patient has no complaints at this time. Right wrist post-cath site WNL. VSS. Will monitor.
[2020-05-26 03:48] VITALS: BP 138/72; PULSE 89; RESP 29; TEMP 36.4; O2SAT 90
[2020-05-26 04:08] VITALS: PULSE 84
[2020-05-26 05:12] LABS: Basophils # 0.1 10^3/uL (0.0-0.1); Basophils % 1.2 %; Eosinophils # 0.2 10^3/uL (0.0-0.8); Eosinophils % 3.1 %; Hematocrit 49.5 % (42.0-52.0); Hemoglobin 15.2 g/dL (11.7-16.6); Lymphocytes % 27.3 %; Mean Corpuscular HGB Conc 30.7 g/dL (30.0-36.0); Mean Corpuscular Hemoglobin 27.2 pg (28.0-34.0); Mean Corpuscular Volume 88.6 fL (80-94); Mean Platelet Volume 11.5 fL (7.4-10.4); Monocytes # 0.6 10^3/uL (0.2-0.9); Monocytes % 7.8 %; Neutrophils # 4.53 10^3/uL (1.8-7.7); Neutrophils % 60.5 %; Nucleated Red Blood Cells % 0 %; Platelet Count 208 10^3/cmm (130-400); Red Blood Count 5.59 10^6/uL (4.1-5.3); Red Cell Distribution Width 13.2 % (12.1-15.1); White Blood Count 7.5 10^3/uL (4.0-10.0)
[2020-05-26 05:36] LABS: Alanine Aminotransferase 27 U/L (0-41); Albumin Level 3.8 g/dL (3.5-5.2); Alkaline Phosphatase 92 IU/L (40-130); Anion Gap 12.1 (5-19); Aspartate Amino Transferase 21 U/L (0-40); Blood Urea Nitrogen 17 mg/dL (8-23); Calcium 9.4 mg/dL (8.5-10.5); Carbon Dioxide 29 mmol/L (22-29); Chloride 101 mmol/L (98-107); Globulin 3.1 g/dL (1.3-4.6); Glomerular Filtration Rate 86.1 mL/min (90-130); Glucose 96 mg/dL (65-115); Magnesium 1.6 mg/dL (1.7-2.3); Osmolality Calculated 287 mOsm/kg (285-295); Phosphorus 3.6 mg/dL (2.5-4.5); Potassium 4.1 mmol/L (3.5-5.1); Sodium 138 mmol/L (136-145); Total Bilirubin 0.5 mg/dL (0.15-1.2); Total Protein 6.9 g/dL (6.6-8.7)
[2020-05-26 07:45] VITALS: BP 144/88; PULSE 102; RESP 17; TEMP 36.4; O2SAT 93
--- NOTE | 2020-05-26 08:04 | P.PN_ITS ---
Subjective Subjective: Interval history: Patient is doing well. He underwent coronary angiograpy yesterday that showed non obstructive coronary artery disease. Vitals/I&O/Wt Last Vital Signs Temp 97.5 F L 05/26/20 07:45 Pulse 102 H 05/26/20 07:45 Resp 17 05/26/20 07:45 BP 144/88 05/26/20 07:45 Pulse Ox 93 05/26/20 07:45 05/25/20 05/26/20 05/26/20 22:59 06:59 14:59 Intake Total 985 / 1585 300 / 1885 250 / 250 Output Total 1630 / 1950 500 / 2450 Balance -645 / -365 -200 / -565 250 / 250 Physical Exam Const: COMMON NORMALS: no acute distress and patient oriented x3 HENMT: COMMON NORMALS: normocephalic HEAD & SCALP: normocephalic Neck/C-Spine: COMMON NORMALS: no JVD Resp: COMMON NORMALS: normal respiratory effort, No retractions, No use of accessory muscles and clear to auscultation bilaterally AUSCULTATION: clear to auscultation bilaterally Cardio: COMMON NORMALS: no JVD, regular rate, regular rhythm, S1 normal heart sound present and S2 normal heart sound present RATE: regular rate RHYTHM: regular rhythm HEART SOUNDS: S1 normal heart sound present and S2 normal heart sound present GI: COMMON NORMALS: Normal to inspection, nondistended, normoactive bowel sounds present, Soft to palpation, non-tender, No hepatosplenomegaly present, no masses and no bruits PALPATION: Yes Soft to palpation and Yes No hepatosplenomegaly present Extremity: COMMON NORMALS: capillary refill normal, no clubbing, cyanosis or edema, no calf tenderness and no pedal edema Neuro: COMMON NORMALS: patient oriented x3 Psych: COMMON NORMALS: mental status grossly normal Data : 05/26/20 05:00 05/26/20 05:00 A&P Assessment and plan (1) Chest pain: Status: Resolved (2) Acute hyperkalemia: Status: Resolved (3) Acute renal failure: Status: Resolved (4) Atrial fibrillation: Status: Acute (5) Elevated troponin: Status: Resolved (6) New onset of congestive heart failure: Status: Acute Patient underwent coronary angiography that showed no significant coronary artery disease. His creatinine has normalized. Hold nephrotoxic medication. Eliquis resumed. Patient is okay to be discharged from cardiology standpoint. Will hold diuretics. He is euvolemic at this time. Will reevaluate as outpatient Thank you for involving us with care of this patient. Please call with questions Attestations Medical Necessity Statement*: Care expected to cross two midnights. 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
[2020-05-26] MEDS: magnesium oxide 400 mg tablet PO (09:25)
[2020-05-26 09:26] VITALS: PULSE 78
[2020-05-26] MEDS: apixaban 5 mg Tablet PO (09:26)
[2020-05-26] MEDS: digoxin 125 mcg Tablet PO (09:26)
[2020-05-26] MEDS: aspirin 81 mg EC Tablet PO (09:26)
[2020-05-26] MEDS: metoprolol tartrate 50 mg Tablet PO (09:26)
[2020-05-26] MEDS: pantoprazole DR 40 mg Tablet PO (09:26)
--- NOTE | 2020-05-26 09:54 | PM.DCS ---
Discharge Providers Date of Admission: 05/22/20 14:13 Date of Discharge: May 26, 2020 Attending Provider at Admission: Issa Meek MD Attending Provider at Discharge: Issa Meek MD Primary Care Provider: Arsalan Mak MD Diagnoses at Discharge Discharge Diagnosis (1) Acute hyperkalemia: Status: Acute (2) Acute renal failure: Status: Acute (3) Chest pain: Status: Acute (4) Hypercapnic respiratory failure: Status: Acute (5) Obesity hypoventilation syndrome: Status: Acute (6) New onset of congestive heart failure: Status: Acute (7) Atrial fibrillation: Status: Acute Reason for Visit Reason for Visit: Sent from for elevated levels Hospital Course Hospital Course This is a 59-year-old male with past medical history of atrial fibrillation, hypertension, obesity hypoventilation syndrome, chronic hypercarbia, diastolic heart failure who presents to [facility] due to complaints of chest pain, and abnormal labs Patient was admitted to [facility] for acute hyperkalemia, likely secondary renal failure, EKG had nonspecific ST-T wave changes, resolved with insulin/D50/calcium gluconate. Potassium discharge was 4.1 Patient was also admitted for acute renal failure likely secondary to diuretic therapy, received IV hydration, creatinine improved, creatinine on discharge was 0.9. Patient had chest pain, elevated troponins on admission, EKG no acute ST-T wave changes, he underwent a cardiac catheterization which did not show obstructive CAD. Chest pain resolved. On discharge patient was instructed to take Lasix 20 mg daily with potassium tablet as needed if he were to gain more than 2 pounds, or have bilateral extremity edema, or shortness of breath. Follow-up with cardiology in 1 week. Physical Exam Const: COMMON NORMALS: no acute distress and patient oriented x3 HENMT: COMMON NORMALS: normocephalic HEAD & SCALP: normocephalic Neck/C-Spine: COMMON NORMALS: no JVD Resp: COMMON NORMALS: normal respiratory effort, No retractions, No use of accessory muscles and clear to auscultation bilaterally AUSCULTATION: clear to auscultation bilaterally Cardio: COMMON NORMALS: no JVD, regular rate, regular rhythm, S1 normal heart sound present and S2 normal heart sound present RATE: regular rate RHYTHM: regular rhythm HEART SOUNDS: S1 normal heart sound present and S2 normal heart sound present GI: COMMON NORMALS: Normal to inspection, nondistended, normoactive bowel sounds present, Soft to palpation, non-tender, No hepatosplenomegaly present, no masses and no bruits PALPATION: Yes Soft to palpation and Yes No hepatosplenomegaly present Extremity: COMMON NORMALS: capillary refill normal, no clubbing, cyanosis or edema, no calf tenderness and no pedal edema Neuro: COMMON NORMALS: patient oriented x3 Psych: COMMON NORMALS: mental status grossly normal Discharge Data Data Completed and Pending: Completed Studies During Hospitalization Category Date Time Status XR chest 1V amira ble [id number] Routine Exams 05/23/20 07:00 Completed Pending at discharge Category Date Time Status 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 request for service Routin e Exams 05/25/20 06:20 Taken Complete Blood Co unt w/Auto AM LABS Lab 05/27/20 04:00 Ordered Complete Blood Co unt w/Auto AM LABS Lab 05/28/20 04:00 Ordered Comprehensive Met abolic Panel AM LA BS Lab 05/27/20 04:00 Ordered Comprehensive Met abolic Panel AM LA BS Lab 05/28/20 04:00 Ordered Magnesium AM LABS Lab 05/27/20 04:00 Ordered Magnesium AM LABS Lab 05/28/20 04:00 Ordered Phosphorus AM LAB S Lab 05/27/20 04:00 Ordered Phosphorus AM LAB S Lab 05/28/20 04:00 Ordered Labs from last 24 hours 05/26/20 05/26/20 05:00 05:00 WBC 7.5 RBC 5.59 H Hgb 15.2 Hct 49.5 MCV 88.6 MCH 27.2 L MCHC 30.7 RDW 13.2 Plt Count 208 MPV 11.5 H Neut % (Auto) 60.5 Lymph % (Auto) 27.3 Payne % (Auto) 7.8 Eos % (Auto) 3.1 Baso % (Auto) 1.2 Neut # (Auto) 4.53 Lymph # (Auto) 2.0 Payne # (Auto) 0.6 Eos # (Auto) 0.2 Baso # (Auto) 0.1 Nucleated RBC % (a uto) 0 Nucleated RBCs # 0.0 Sodium 138 Potassium 4.1 Chloride 101 Carbon Dioxide 29 Anion Gap 12.1 BUN 17 Creatinine 0.9 GFR Calculation 86.1 L Glucose 96 Calculated Osmolal ity 287 Calcium 9.4 Phosphorus 3.6 Magnesium 1.6 L Total Bilirubin 0.5 AST 21 ALT 27 Alkaline Phosphata se 92 Total Protein 6.9 Albumin 3.8 Globulin 3.1 Vitals: Last Vital Signs Temp 97.5 F L 05/26/20 07:45 Pulse 78 05/26/20 09:26 Resp 17 05/26/20 07:45 BP 144/88 05/26/20 07:45 Pulse Ox 93 05/26/20 07:45 Discharge Plan Discharge Patient Disposition: Home Condition: Stable Prescriptions: New aspirin 81 mg Tablet,Delayed Release (Dr/Ec) 81 mg PO DAILY 30 Days Qty: 30 RF: 0 atorvastatin 40 mg Tablet 40 mg PO BEDTIME 30 Days Qty: 30 RF: 0 Continued lisinopril-hydrochlorothiazide 20-25 mg tablet 1 tab PO DAILY@17 RF: 0 ondansetron HCl 4 mg tablet 4 mg PO Q6H PRN (Reason: Nausea) RF: 0 tramadol 50 mg tablet 50 mg PO Q6H PRN (Reason: Pain) RF: 0 PreserVision AREDS-2 [id number]-mg Capsule 1 tab PO DAILY RF: 0 Tart Arboleda Extract 1,000 mg Capsule 1,000 mg PO DAILY RF: 0 Cardizem CD 240 mg capsule,extended release 24hr 240 mg PO DAILY@ RF: 0 digoxin 250 mcg (0.25 mg) tablet 250 mcg PO DAILY@09 RF: 0 metoprolol tartrate 50 mg tablet 50 mg PO BID@, RF: 0 Eliquis 5 mg tablet 5 mg PO BID@, RF: 0 Changed Lasix 40 mg tablet 20 mg PO DAILY PRN (Reason: for edema or weight gain more than 2lbs) Qty: 0 RF: 0 Klor-Con M20 20 mEq tablet,ER particles/crystals 20 meq PO DAILY@09 PRN (Reason: take with lasix tablet as needed) Qty: 0 RF: 0 Discharge Orders: Discharge Order (Routine); Ordered 05/26/20 Ordered By: Issa Meek Other Ambulatory Orders: Comprehensive Metabolic Panel (Routine) Timeframe: 1 Week Facility: [facility] - Location: Lab - Main Lab Ordered By: Issa Meek Referrals: Arsalan Mak MD [Primary Care Provider] - Discharge Diet: Cardiac Discharge Activity: Resume usual activity Activity Restrictions/Additional Instructions: -Please only take Lasix 20 mg daily with potassium tablet if you have bilateral lower extremity edema or if you gain more than 2 pounds -Please weigh yourself daily, if you gain more than 2 pounds, or feel short of breath please take Lasix 20 mg with potassium tablet as above -Please follow-up with cardiology -Please limit fluid intake to less than 1.5 to 2 L a day Discharge Attestations Time Spent in Discharge Care*: greater than 30 min Quality Metrics Clinical Quality Measures During this hospital stay, did patient experience: None Coding Level of Care Code 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
[2020-05-26 11:04] VITALS: BP 142/78; PULSE 85; O2SAT 95
== END 2020-05-26 10:55 | disposition home or self-care (01) | DRG 286 ==
LOC: ER 14:17 → CSU 17:07
PROVIDERS: Internal Medicine; Physician Assistant; Admitting Provider Family Medicine; Emergency Provider Family Medicine; PCP Family Medicine; Visit Provider Family Medicine
PROC: B211YZZ Fluoroscopy of Multiple Coronary Arteries using Other Contrast (ICD-10-PCS; principal; 2020-05-25 07:00)
DX: R07.9 Chest pain, unspecified (principal); I50.31 Acute diastolic (congestive) heart failure; E66.2 Morbid (severe) obesity with alveolar hypoventilation; Z68.42 Body mass index [BMI] 45.0-49.9, adult; J96.12 Chronic respiratory failure with hypercapnia; N17.9 Acute kidney failure, unspecified; E87.5 Hyperkalemia; I48.91 Unspecified atrial fibrillation; I11.0 Hypertensive heart disease with heart failure; M19.90 Unspecified osteoarthritis, unspecified site; Z87.891 Personal history of nicotine dependence; T50.1X5A Adverse effect of loop [high-ceiling] diuretics, initial encounter; T46.4X5A Adverse effect of angiotensin-converting-enzyme inhibitors, initial encounter; T50.2X5A Adverse effect of carbonic-anhydrase inhibitors, benzothiadiazides and other diuretics, initial encounter; I25.10 Atherosclerotic heart disease of native coronary artery without angina pectoris; Z79.01 Long term (current) use of anticoagulants
CPT/HCPCS: 36415; 71045; 80048; 80053; 81001; 83036; 83735; 83880; 84100; 84484; 85025; 93005; 93454; 94664; 96365; 96375; 99285; C1769; C1887; C1894; J0610; J1200; J1644; J1815; J2250; J3010; J3490; J7030; Q9967

== ENCOUNTER → 2020-06-01 08:53 | Outpatient (BNVA) | payer OTHER, SELFPAY | PROVIDERS: PCP Family Medicine; Referring Provider Family Medicine; Visit Provider Family Medicine | DX: R07.9 Chest pain, unspecified (principal); E87.5 Hyperkalemia | CPT/HCPCS: 80053 ==

== ENCOUNTER → 2020-06-22 15:01 | Outpatient (BNVA) | payer OTHER, SELFPAY | PROVIDERS: PCP Family Medicine; Visit Provider Internal Medicine | DX: I50.9 Heart failure, unspecified (principal); I48.91 Unspecified atrial fibrillation; I48.19 Other persistent atrial fibrillation | CPT/HCPCS: 80048; 83880 ==

== ENCOUNTER → 2020-07-13 15:15 | Outpatient (BNVA) | payer OTHER, SELFPAY | PROVIDERS: PCP Family Medicine; Referring Provider Internal Medicine; Visit Provider Internal Medicine | DX: N18.31 Chronic kidney disease, stage 3a (principal); I48.19 Other persistent atrial fibrillation | CPT/HCPCS: 80069; 82043; 82306; 82310; 83970; 85025; 87635 ==

== ENCOUNTER → 2020-07-14 15:15 | Outpatient (BNVA) | payer OTHER, SELFPAY | PROVIDERS: PCP Family Medicine; Referring Provider Internal Medicine; Visit Provider Internal Medicine | DX: Z01.818 Encounter for other preprocedural examination (principal); N18.31 Chronic kidney disease, stage 3a | CPT/HCPCS: 87635 ==

== ENCOUNTER → 2020-07-24 11:01 | Outpatient (BNVA) | payer OTHER, SELFPAY | PROVIDERS: PCP Family Medicine; Visit Provider Internal Medicine | DX: Z20.822 Contact with and (suspected) exposure to COVID-19 (principal); I48.19 Other persistent atrial fibrillation | CPT/HCPCS: 87635 ==

== ENCOUNTER 2020-07-28 07:17 | Day surgery (SDC) | payer OTHER, SELFPAY ==
[2020-07-26 13:42] VITALS: BMI 42.2
[2020-07-28 07:34] VITALS: BP 125/62; PULSE 59; RESP 18; TEMP 36.6; O2SAT 94
[2020-07-28] MEDS: sodium chloride 0.9% 1,000 ML 30 ML IV (07:50)
--- NOTE | 2020-07-28 08:12 | ANES.PREANE2 ---
Pre-Anesthetic Assessment Pre-Anesthetic Assessment: Height/Weight: Height 1.91 m Weight 153.314 kg Temp Pulse Resp BP Pulse Ox 97.8 F 59 L 18 125/62 94 07/28/20 07:34 07/28/20 07:34 07/28/20 07:34 07/28/20 07:34 07/28/20 07:34 Preop Diagnosis: atrial fibrillation Proposed Procedure: Operation Date: 07/28/20 08:30 Proposed Procedures p RUSS [id number] I48.19(Not Applicable) - Minh Bower M.D s Cardioversion(Not Applicable) - Minh Bower M.D Familial anesthetic complications: none Was Beta Elena taken within 24 hours: Yes Was Clonidine taken within 24 hours: N/A Last intake: Intake Last Liquid Date 07/27/20 Last Liquid Time 23:00 Last Solid Date 07/27/20 Last Solid Time 20:00 Social: Social History: No tobacco (history quit 10-15 years ago) Exam: Pre-Anes Outpt Exam: alert, oriented x 3 and clear to auscultation bilaterally Airway: Submandibular: WNL Cervical ROM: WNL Dentition: Loose Additional comments: missing and some loose Pulmonary: Pulmonary: SOB CV/HEM: CV/HEM: Afib, CAD, CHF and HTN : Comments: had acute history last hospitalization but have recovered. recent director ambulatory showed recovery Hepatic: Hepatic: None reported GI: GI: None reported Metabolic: Metabolic: Hyperlipidemia and Morbid obesity Musc/skel: Musc/skel: Lower Back Pain and OA/DJD Neuropsych: Neuropsych: None reported Anesthetic Plan: ASA status: 3 Anesthesia: MAC Risk of > 500 ml blood loss (7ml/kg in children): No Meds/Allergies Current Medications: Current Medications Generic Name Dose Route Start Last Admin Trade Name Freq PRN Reason Stop Dose Admin Sodium Chloride 1,000 mls @ 30 ml s/hr 07/28/20 07:30 07/28/20 07:50 Sodium Chloride 0.9% IV 07/29/20 07:29 30 mls/hr .Q24H CHINEDU Administration PFSH Anesthesia PFSH: Medical History Arthritis Atrial fibrillation with rapid ventricular response Former smoker Hypertension Hypokalemia Morbid obesity due to excess calories Retained myringotomy tube in left ear Sleep apnea with hypersomnolence Surgical History H/O hernia repair S/P left knee arthroscopy Family History Mother Cancer Liver cancer Social History Smoking and tobacco status: former smoker Alcohol intake: never Data Anesthesia Cardiac Studies: No Data to Display
--- NOTE | 2020-07-28 08:35 | W.PM.OPSFHP ---
Same Day Surgery H&P Indication for Procedure/HPI DATE OF PROCEDURE: July 28, 2020 CHIEF COMPLAINT/INDICATIONFOR SURGICAL PROCEDURE: Atrial fibrillation PREOP DIAGNOSIS: atrial fibrillation PLANNED PROCEDRUE: Operation Date: 07/28/20 08:30 Proposed Procedures p RUSS [id number] I48.19(Not Applicable) - Minh Bower M.D s Cardioversion(Not Applicable) - Minh Bower M.D 59-year-old gentleman with history of arthritis, HTN, morbid obesity was admitted recently to hospital with volume overload, shortness of breath and new onset atrial fibrillation. He is on eliquis 5mg bid. Plan for RUSS/cardioversion Patient continues having shortness of breath. ROS 10 Point review of systems is negative except as mentioned above Medications/Allergies* Home Medications Medication Instructions Recorded Confirmed Type Eliquis 5 mg PO BID@,05/22/20 07/28/20 History PreserVision AREDS-2 1 tab PO DAILY 05/22/20 07/28/20 History Tart Arboleda Extract 1,000 mg PO DAILY 05/22/20 07/28/20 History digoxin 250 mcg PO DAILY@05/22/20 07/28/20 History diltiazem HCl [Cardizem CD] 240 mg PO DAILY@05/22/20 07/28/20 History metoprolol tartrate 50 mg PO BID@05/22/20 07/28/20 History ondansetron HCl 4 mg PO Q6H PRN 05/22/20 07/28/20 History tramadol 50 mg PO Q6H PRN 05/22/20 07/28/20 History ergocalciferol (vitamin D2) 50,000 unit PO DIRECTED 07/26/20 07/28/20 History [Vitamin D2] lisinopril-hydrochlorothiazide 0.5 tab PO DAILY 07/26/20 07/28/20 History Allergies/Adverse Reactions Allergy/AdvReac Type Severity Reaction Status Date / Time No Known Allergies Allergy Verified 07/28/20 07:27 Current Medications: Generic Name Dose Route Start Last Admin Trade Name Freq PRN Reason Stop Dose Admin Sodium Chloride 1,000 mls @ 30 mls/hr 07/28/20 07:30 07/28/20 07:50 Sodium Chloride 0.9% IV 07/29/20 07:29 30 mls/hr .Q24H CHINEDU Administration Pertinent History/Comorbid Conditions* Medical History (Updated 06/02/20 @ 11:36 by JESUS ALBERTO Rodriguez) Arthritis Atrial fibrillation with rapid ventricular response Former smoker Hypertension Hypokalemia Morbid obesity due to excess calories Retained myringotomy tube in left ear Sleep apnea with hypersomnolence Surgical History (Updated 04/30/20 @ 21:48 by Barby Villa MD) H/O hernia repair S/P left knee arthroscopy Family History (Updated 04/30/20 @ 21:53 by Barby Villa MD) Cancer Mother Liver cancer Social History Smoking and tobacco status: former smoker Alcohol intake: never Pertinent Exam Findings alert, oriented x 3, clear to auscultation bilaterally and regular rate & rhythm Recommendations Surgery/Procedure today (RUSS/ Cardioversion) Coding Level of Care Code Acute 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
--- NOTE | 2020-07-28 08:56 | PM.MISC ---
Miscellaneous Note Purpose of Documentation: Patient's heart rate has been staying in low 50s to 60 today. He is still in atrial fibrillation. Given significant bradycardia, we have decided to hold off on cardioversion secondary to risk of having even more significant bradycardia post cardioversion. We will stop his digoxin and reduce the dose of cardizem to 120mg daily. I will follow with him in office in 2 weeks and will reevaluate the need for cardioversion.
[2020-07-28 09:25] VITALS: BP 100/54; PULSE 51; RESP 18; TEMP 36.5; O2SAT 95
== END 2020-07-28 09:40 | disposition home or self-care (01) ==
PROVIDERS: PCP Family Medicine; Visit Provider Internal Medicine
PROC: (CPT 93312; principal; 2020-07-28 08:30)
PROC: 5A2204Z Restoration of Cardiac Rhythm, Single (ICD-10-PCS; 2020-07-28 08:30)
DX: I48.91 Unspecified atrial fibrillation (principal); M19.90 Unspecified osteoarthritis, unspecified site; E66.01 Morbid (severe) obesity due to excess calories; Z68.41 Body mass index [BMI] 40.0-44.9, adult; Z79.01 Long term (current) use of anticoagulants; Z87.891 Personal history of nicotine dependence; G47.30 Sleep apnea, unspecified; I25.10 Atherosclerotic heart disease of native coronary artery without angina pectoris; I11.0 Hypertensive heart disease with heart failure; I50.9 Heart failure, unspecified; E78.5 Hyperlipidemia, unspecified
CPT/HCPCS: 96360; 96361; J2704; J7030

== ENCOUNTER → 2020-08-21 09:57 | Outpatient (BNVA) | payer OTHER, SELFPAY | PROVIDERS: PCP Family Medicine; Visit Provider Internal Medicine | DX: Z20.822 Contact with and (suspected) exposure to COVID-19 (principal) | CPT/HCPCS: 87635 ==

== ENCOUNTER 2020-08-25 10:42 | Day surgery (SDC) | payer OTHER, SELFPAY ==
[2020-08-23 13:35] VITALS: BMI 42.0
--- NOTE | 2020-08-25 | USCV_ITS ---
Williams Ross Age: 60 Gender: M : 1960 Exam Date: 08/25/2020 12:10 Ordering Phys: Minh Bower M.D ([email or web address]) Technologist: ANAIS IRENE [place] [facility] [place]: [place]IB BP: / HR: Rhythm: Sinus Technical Quality: MEASUREMENTS (Male / Female) Normal Values Medications Patient given IV sedation by anesthesia service, for details please refer to the anesthesia report. Complications None. Proc. Components RUSS was performed at multiple levels. FINDINGS Left Ventricle LV systolic function is normal Right Ventricle RV is normal in size and function Right Atrium Grossly normal Left Atrium Appears enlarged LA Appendage No evidence of MARITZA thrombus. IA Septum Normal Mitral Valve Normal in structure. There is mild mitral regurgitation noted Aortic Valve Normal in structures. Trace regurgitation Tricuspid Valve Normal Pulmonic Valve Not well visualized Pericardium Normal Aorta Has mild atherosclerotic plaque CONCLUSIONS LV systolic function is normal Mild mitral regurgitation No evidence of MARITZA thrombus Mild atherosclerotic plaque Minh Bower MD (Electronically Signed) Final Date: 25 Aug 2020 14:24 S
--- NOTE | 2020-08-25 10:56 | ANES.PREANE2 ---
Pre-Anesthetic Assessment Pre-Anesthetic Assessment: Height/Weight: Height 1.91 m Weight 152.407 kg Preop Diagnosis: atrial fibrillation Proposed Procedure: Operation Date: 08/25/20 12:00 Proposed Procedures p RUSS [id number] I50.9(Not Applicable) - Minh Bower M.D s Cardioversion(Not Applicable) - Minh Bower M.D Familial anesthetic complications: none Was Beta Elena taken within 24 hours: N/A (patient was told to hold metoprolol for cardioversion) Was Clonidine taken within 24 hours: N/A Last intake: > 8 hrs Social: Social History: No alcohol and No tobacco Exam: Pre-Anes Outpt Exam: alert, oriented x 3, clear to auscultation bilaterally and regular rate & rhythm Airway: Cervical ROM: WNL MP: 3 Dentition: Full and Other (missing) Pulmonary: Comments: obesity hypoventilation syndrome - patient denies CV/HEM: CV/HEM: Afib and CHF Comments: Diagnostic Cath Status: Urgent Diagnostic Findings * No significant disease noted in the Left Main, LAD, Circumflex, or RCA coronary arteries. * Coronary angiography shows right dominance. Conclusions 1. No significant disease noted in the Left Main, LAD, Circumflex, or RCA coronary arteries. Echo CONCLUSIONS 1-Mildly increased left ventricular cavity size. Normal left ventricular systolic function. Left ventricular ejection fraction is estimated at 55 %. In the presence of atrial fibrillation diastolic function cannot be assessed accurately. 2-No significant valve abnormalities. 3-There is no pericardial effusion. 4-Pulmonary artery systolic pressure is within normal limits. 5-There are no prior echocardiogram studies to compare. Metabolic: Metabolic: Morbid obesity Anesthetic Plan: ASA status: 3 Anesthesia: MAC Risk of > 500 ml blood loss (7ml/kg in children): No PFSH Anesthesia PFSH: Medical History Arthritis Atrial fibrillation with rapid ventricular response Former smoker Hypertension Hypokalemia Morbid obesity due to excess calories Retained myringotomy tube in left ear Sleep apnea with hypersomnolence Surgical History H/O hernia repair S/P left knee arthroscopy Family History Mother Cancer Liver cancer Social History Smoking and tobacco status: former smoker Alcohol intake: never Data Anesthesia Cardiac Studies: No Data to Display
[2020-08-25 11:18] VITALS: BP 122/79; PULSE 110; RESP 18; TEMP 36.4; O2SAT 94
--- NOTE | 2020-08-25 11:26 | ECG_ITS ---
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 Measurements Intervals [place] Rate: 104 P: DE: QRS: 68 QRSD: 109 T: 30 QT: 340 QTc: 449 Interpretive Statements ATRIAL FIBRILLATION WITH RAPID VENTRICULAR RESPONSE ABNORMAL RHYTHM ECG Compared to ECG 05/25/2020 05:47:57 Intraventricular conduction delay no longer present Electronically Signed On 08-26-2020 9:52:56 CDT by Frieda Higgins M.D. [id number]
[2020-08-25] MEDS: sodium chloride 0.9% 1,000 ML 30 ML IV (11:41)
[2020-08-25 12:35] VITALS: BP 96/64; PULSE 100; RESP 16; TEMP 36.6; O2SAT 96
--- NOTE | 2020-08-25 12:35 | W.PM.OPSUD ---
Surgery/Procedure H&P Update DATE OF PROCEDURE: August 25, 2020 DATE H&P PERFORMED: 08/11/20 H&P UPDATE INFORMATION: I have reviewed H&P completed within last 30 days, I have examined patient prior to procedure and No changes to prior documentation PREOP DIAGNOSIS: atrial fibrillation PRIMARY INDICATION FOR PROCEDURE: Atrial fibrillation PLANNED PROCEDURE: Operation Date: 08/25/20 12:00 Proposed Procedures p RUSS [id number] I50.9(Not Applicable) - Minh Bower M.D s Cardioversion(Not Applicable) - Minh Bower M.D PATIENT REASSESSED PRIOR TO SEDATION, WITH NO CHANGE NOTED: Yes PHYSICAL EXAM: alert, oriented x 3 and clear to auscultation bilaterally OTHER PERTINENT EXAM FINDINGS: Irregularly irregular heart rhythm. Anesthesia team available for administering anesthesia medications
--- NOTE | 2020-08-25 12:45 | ECG_ITS ---
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 Measurements Intervals [place] Rate: 95 P: NV: QRS: 68 QRSD: 106 T: 29 QT: 364 QTc: 458 Interpretive Statements ATRIAL FIBRILLATION ABNORMAL RHYTHM ECG INTERPRETATION BASED ON A DEFAULT AGE OF 40 YEARS Compared to ECG 05/25/2020 05:47:57 Intraventricular conduction delay no longer present Electronically Signed On 08-26-2020 9:52:45 CDT by Frieda Higgins M.D. [id number] f
--- NOTE | 2020-08-25 12:51 | PM.PROC ---
Procedure Note: Date of procedure: 08/25/20 Pre-procedure diagnosis: Atrial fibrillation with RVR Coding Level of Care Code Acute Test Lead Application Testing for Domonique Parikh
[2020-08-25 13:00] VITALS: BP 102/71; PULSE 94; RESP 16; O2SAT 95
--- NOTE | 2020-08-25 13:03 | ANE.PACU2 ---
Inpatient post-anesthesia follow up: Airway intact: Yes Vital signs: Temperature 97.9 F Pulse Rate 94 Respiratory Rate 16 Blood Pressure 102/71 Pulse Oximetry 95 Oxygen Delivery Me thod Room Air Oxygen Flow Rate Fraction of Inspir ed Oxygen Hydration adequate: Yes Nausea and vomiting: No Pain level: 1 Mental status: Baseline
== END 2020-08-25 13:28 | disposition home or self-care (01) ==
PROVIDERS: PCP Family Medicine; Visit Provider Internal Medicine
PROC: (CPT 93312; principal; 2020-08-25 12:00)
PROC: 5A2204Z Restoration of Cardiac Rhythm, Single (ICD-10-PCS; 2020-08-25 12:00)
DX: I48.91 Unspecified atrial fibrillation (principal); I34.0 Nonrheumatic mitral (valve) insufficiency; I70.0 Atherosclerosis of aorta; Z79.82 Long term (current) use of aspirin; M19.90 Unspecified osteoarthritis, unspecified site; I10 Essential (primary) hypertension; E66.01 Morbid (severe) obesity due to excess calories; Z68.41 Body mass index [BMI] 40.0-44.9, adult; G47.30 Sleep apnea, unspecified; Z87.891 Personal history of nicotine dependence; I11.0 Hypertensive heart disease with heart failure; I50.9 Heart failure, unspecified; E66.9 Obesity, unspecified
CPT/HCPCS: 92960; 93005; 93312; 93318; 93320; 93325; 96360; J2704; J7030

== ENCOUNTER → 2020-09-27 11:08 | Outpatient (BNVA) | payer OTHER, SELFPAY | PROVIDERS: PCP Family Medicine; Referring Provider Internal Medicine; Visit Provider Internal Medicine | DX: N18.31 Chronic kidney disease, stage 3a (principal) | CPT/HCPCS: 82043; 82310; 83970 ==

== ENCOUNTER → 2020-09-28 11:08 | Outpatient (BNVA) | payer OTHER, SELFPAY | PROVIDERS: PCP Family Medicine; Referring Provider Internal Medicine; Visit Provider Internal Medicine | DX: N18.31 Chronic kidney disease, stage 3a (principal) | CPT/HCPCS: 80069 ==

== ENCOUNTER → 2021-05-05 15:10 | Outpatient (BNVA) | payer OTHER, SELFPAY | PROVIDERS: PCP Family Medicine; Visit Provider Nurse Practitioner Family | DX: N41.9 Inflammatory disease of prostate, unspecified (principal) | CPT/HCPCS: 81000 ==

== ENCOUNTER → 2021-11-04 12:07 | Outpatient (BNVA) | payer OTHER, SELFPAY | PROVIDERS: PCP Family Medicine; Visit Provider Emergency Medicine | DX: N39.0 Urinary tract infection, site not specified (principal) | CPT/HCPCS: 81000 ==

== ENCOUNTER 2022-02-06 07:35 | Outpatient (CLI) | payer OTHER, SELFPAY ==
--- NOTE | 2022-02-06 07:52 | FL_ITS ---
WS: [id number] Barium enema, 02/06/2022 Clinical Data: SCREENING FOR LOWER GASTROINTESTINAL DISORDER Comparison: None. Fluoroscopy time: 1min [id number] # of spot films: 6 Findings: The barium was introduced in a retrograde fashion. The colon was partly filled. Because of the patien t's large size the examination showed only incomplete filling of the cecum. The appendix was refluxed . No obstruction, polyp, mass or mucosal abnormality was noted. FL/FL barium enema [id number] Impression: 1. Probably normal barium enema. 2. Because of the patient's large size the ascending colon and the proximal tra nsverse colon were only partly filled.
--- NOTE | 2022-06-07 12:03 | XACV_ITS ---
Exam Room: 2 Ht: 191 cm Wt: 164 kg BSA: 3.02 m2 Gender: Male : 1960 Exam Priority: Routine Procedure(s): Procedure Description: Diagnostic procedure Procedure Description: Left Heart Catheterization Procedure Description: Left ventriculography Procedure Description: Coronary Angiography Diagnostic Cath Status: Emergency Diagnostic Findings * Patient with minimal symptoms who was in the office for routine visit. EKG revealed significant ST elevation in leads II, III and aVF. He was brought to the Media Clerk. * Coronary angiography reveals right coronary artery dominance. The left main coronary artery is normal and bifurcates into the LAD and circumflex. Both vessels are normal. The right coronary artery is a large dominant vessel and is normal. Conclusions 1. Significant EKG changes suggesting inferior wall KS. Normal coronary arteries. Normal left ventriculography. Recommendations * Home later today. Interventional RX Recommendation: none Diagnostic RX Recommendation: none Anticoagulation: Heparin Ventriculography Ejection Fraction: 60.0 % Pressures Phase:Rest AO : 107 / 66 ( 83 ) @ 12:10:00 PM 110 / 65 ( 83 ) @ 12:21:00 PM 112 / 65 ( 85 ) @ 12:21:00 PM LV : 124 / 1 / 19 @ 12:19:00 PM 125 / 4 / 21 @ 12:21:00 PM 127 / 5 / 24 @ 12:21:00 PM Valves Phase:DefaultPhase AV : 17.0 @ 12:44:05 PM 17.0 @ 12:44:05 PM AV Mean Gradient: 10.0 @ 12:44:05 PM 10.0 @ 12:44:05 PM Clinical Evaluation EBL: 5mL-10mL Procedural Details Procedure Consent Obtained. Pre-Procedure Time Out. Identified patient by full name and date of as verbalized by the patient/guarantor. Does the consent match the physician's order: N/A Emergent; Informed Consent not obtained due to time critical life threat. Accurate & Complete Informed Consent: N/A Emergent; Informed Consent not obtained due to time critical life threat. Inpatient/Outpatient History & Physical on Chart: N/A Emergent; Informed Consent not obtained due to time critical life threat. Visualize and Verify Site with Patient/Guarantor: N/A. If H&P is completed, is and addenduem needed: N/A Emergent; Informed Consent not obtained due to time critical life threat; If yes, is the addendum complete: N/A Emergent; Informed Consent not obtained due to time critical life threat. Relevant Radiology Images available: N/A Emergent; Informed Consent not obtained due to time critical life threat. The risks, benefits, and alternatives of sedation and/or procedure were discussed by physician. The patient agrees to continue. Procedure started. [facility] Clinical Fraility Score: 3: Managing Well. Media Clerk Indications: ACS <= 24 hours. Chest Pain Symptom Assessment: Typical Angina Symptoms. Cardiovascular Instability: Yes, if yes, Persistant Ischemic Symptoms. Correct patient, site and procedure confirmed by cath team. Current diagnosis: STEMI. PERRLA. Strong, equal hand gun synchronizer bilaterally. Lungs clear x 5 lobes. IV Site on Arrival: 18 gauge in the right anticubital. IV Fluids: 0.9% NaCl at KVO. 0 mL infused prior to labour market economist. Pre Procedural Pulses: bilateral radial was 3+. Oxygen started at 2liters/min via nasal canula. right groin was prepped with chloroprep then draped in the usual sterile fashion. right radial was prepped with chloroprep then draped in the usual sterile fashion. Physician notified. Baseline sample Acquired. HR: 52 BPM. Jan Fagan RN, circulating with Cordelia Camilo RN. Patient's family in the labour market economist waiting room. Dr. Campos will update at the completion of the case. Equipment: 6F - Radial. Cardiac Cath Pack. ACIST Manifold Kit Model BT 2000. Heparinized Saline (2 units/mL), 1000 mL bag. Physician arrived. Physician scrubbed in. Immediate Pre-Procedure Time Out. Correct Patient: N/A Emergent; Informed Consent not obtained due to time critical life threat; Correct Procedure: N/A Emergent; Informed Consent not obtained due to time critical life threat; Correct Site: N/A Emergent; Informed Consent not obtained due to time critical life threat; Correct Patient Position: N/A Emergent; Informed Consent not obtained due to time critical life threat; Correct Supplies: N/A Emergent; Informed Consent not obtained due to time critical life threat; Dried Flammable Prep: N/A Emergent; Informed Consent not obtained due to time critical life threat; Blood Products Available: N/A;. Lidocaine 1% infiltrated to the right radial. Arterial access obtained. 6 ghanaian JR 4 guide catheter was inserted over the exchagne J wire. Multiple views taken of right coronary artery. Catheter out. A 6 ghanaian JL4 catheter in over the exchange J wire. Catheter out. A 5 ghanaian JL4 125cm catheter in over the exchange J wire. Multiple views taken of left coronary artery. A 5 ghanaian Straight Pig 125cm catheter in over the exchange J wire. AP pads were placed on the patient on arrival to the labour market economist. 0.035 x 260 stiff angled glidewire in. 0.035 x 260 stiff angled glidewire out. EDP Sample taken: LV 124/1,19; HR: 53 BPM; SpO2: 95%. LV gram performed in MOSS @ 10 mL/second for a total of 30 mL. EDP Sample taken: LV 125/4,21; HR: 53 BPM; SpO2: 96%. Pullback taken: LV 127/5,24; AO 110/65(83); Mean: 10mmHg, Peak to Peak: 17mmHg, SEP: 17sec/min; HR: 53 BPM; SpO2: 95%. Catheter out. Physician scrubbed out. A TR Band was successful obtaining hemostatsis at the Right Radial artery insertion site. TR band placed. Hemostasis obtained. Post Procedure: Pulses reassessed and unchanged. PERRLA. Strong, equal hand gun synchronizer bilaterally. No VTE prophylaxis required. Medication's Wasted: Lidocaine 1% = 1 mL. Medication's Wasted: Nitro = 49.8 mg. Medication's Wasted: Heparin = 3500 units. Medication's Wasted: Other = Fentanyl 50 mcg. Total IV fluids: 36 mL. Post-op diagnosis: Normal coronaries. Complications: none. Estimated blood loss: 5mL-10mL. Responsiveness - Normal response to verbal stimuli; alert and oriented, PERRLA. Airway - Unaffected, no intervention required; spontaneous ventilation. Circulation: W/N/L, pulses unchanged. Nausea/Vomiting: No. Procedure completed. Patient transferred by bed to CPRU. Vital chart was stopped. Access Site Site: Right Radial artery Sheath Size: 6 Fr Hemostasis Method: TR Band Hemostasis Success: Successful Procedure Medications Start: 12:04 PM Stop: 12:04 PM Medication: Nitrogylcerin Amount: 200 mcg Route: I.A. Start: 12:04 PM Stop: 12:04 PM Medication: Versed Amount: 1 mg Route: I.V. Start: 12:04 PM Stop: 12:04 PM Medication: Fentanyl Amount: 50 mcg Route: I.V. Start: 12:25 PM Stop: 12:25 PM Medication: Heparin Amount: 2500 units Start: 12:21 PM Stop: 12:21 PM Medication: Versed Amount: 1 mg Route: I.V. I, the attending physician, have reviewed and verified all procedure medications. Yes, all medications given per verbal order Report Signatures Finalized by Dr. Braydon Campos MD on 06/07/2022 12:51 PM
--- NOTE | 2022-06-07 12:37 | PM.HP ---
Providers/Chief Complaint Admitting Physician: aubrey Primary Care Provider: Arsalan Mak MD Chief Complaint: [id number] History of Present Illness Williams Ross is a 61 year old male who was visiting the nurse practitioner in the office today for a routine visit. He has a history of atrial fibrillation and has been cardioverted in the past. He takes both amiodarone and Eliquis. He is in sinus rhythm. He was telling the nurse practitioner that he had not quite been feeling well lately with some discomfort in his mid epigastrium and lower chest. Has had no severe chest discomfort and no other associated symptoms. She obtained a twelve-lead EKG which showed significant ST segment elevation in leads II, III and aVF. He was brought down to the cardiac catheterization laboratory for urgent coronary angiography. Review of Systems Narrative: Negative Medications/Allergies Home Medications Medication Instructions Recorded Confirmed Last Taken Type sour arboleda extract 1,000 mg 1,000 mg PO DAILY 05/22/20 06/07/22 08/24/20 History capsule (Tart Arboleda Extract) vit C 250 mg-vit E 90 mg-zinc 40 1 tab PO DAILY 05/22/20 06/07/22 08/24/20 History mg-copper 1 [id number] capsule (PreserVision AREDS-2) acetaminophen 650 mg 1,300 mg PO DAILY 06/08/21 06/07/22 Unknown History tablet,extended release (Tylenol Arthritis Pain) apixaban 5 mg tablet (Eliquis) 5 mg PO BID@ #180 tabs 06/08/21 06/07/22 Unknown Rx atorvastatin 40 mg tablet 40 mg PO BEDTIME #90 tabs 06/08/21 06/07/22 Unknown Rx diltiazem HCl 120 mg 120 mg PO DAILY@17 #90 caps 08/07/21 06/07/22 Unknown Rx capsule,extended release 24 hr metoprolol tartrate 50 mg tablet 50 mg PO BID@ #180 tabs 09/03/21 06/07/22 Unknown Rx amiodarone 200 mg tablet 200 mg PO BID #180 tabs 09/13/21 06/07/22 Unknown Rx lisinopril 10 1 tab PO DAILY 12/07/21 06/07/22 Unknown History mg-hydrochlorothiazide 12.5 mg tablet furosemide 20 mg tablet 20 mg PO DAILY PRN for edema or 06/03/22 06/07/22 Unknown Rx weight gain more than 2lbs #90 tabs potassium chloride 20 mEq 20 meq PO DAILY@09 PRN take with 06/04/22 06/07/22 Unknown Rx tablet,extended lasix tablet as needed #90 tabs release(part/cryst) (Klor-Con M) cholecalciferol (vitamin D3) 50 50 mcg PO DAILY 06/07/22 06/07/22 Unknown History mcg (2,000 unit) chewable tablet ferrous sulfate 325 mg (65 mg 325 mg PO DAILY 06/07/22 06/07/22 Unknown History iron) tablet (Feosol) Allergies Allergy/AdvReac Type Severity Reaction Status Date / Time No Known Allergies Allergy Verified 06/07/22 11:22 PFSH Acute PFSH: Medical History (Updated 06/07/22 @ 12:42 by Braydon Campos MD) Abnormal EKG Anticoagulation adequate with anticoagulant therapy Arthritis Atrial fibrillation with rapid ventricular response Former smoker Hypertension Hypokalemia Morbid obesity due to excess calories Retained myringotomy tube in left ear Sleep apnea with hypersomnolence Surgical History H/O hernia repair S/P left knee arthroscopy Family History Mother Cancer Liver cancer Social History Smoking and tobacco status: former smoker Alcohol intake: never Physical Exam Narrative: GENERAL: Generally looks comfortable and is not in any distress. HEENT: Exam within normal limits. NECK: Supple without jugular vein distention. The carotid upstroke is normal without bruits. BACK: Exam normal. LUNGS: Clear. HEART: Regular rate and rhythm. ABDOMEN: Benign without organomegaly or tenderness. EXTREMITIES: No edema. NEUROLOGIC: Exam normal. SKIN: Unremarkable. A&P Assessment and plan (1) Abnormal EKG: (2) Atrial fibrillation: Qualifiers: Atrial fibrillation type: persistent (not longstanding) Qualified Code(s): I48.19 - Other persistent atrial fibrillation (3) Hypercapnic respiratory failure: (4) Obesity hypoventilation syndrome: (5) New onset of congestive heart failure: (6) Anticoagulation adequate with anticoagulant therapy: Plan Clinically he does not look in any distress and does not appear ill like someone is having an PA however his EKG is dramatically abnormal. When comparing it to his previous tracings there has been no ST segment elevation like this. To be sure, he will be taken to the Wool Washing Machine Operator. Attestations Medical Necessity Statement*: Will require placement in hospital for angiography. and Moderate Time for a total of 30 minutes, includes reviewing past or interval history, examining/interviewing patient, placing orders, counseling patient/family/other support, updating patient/family/other support, discussing plan of care with staff, communicating with other healthcare providers, documenting encounter and coordinating care Diagnoses Abnormal EKG R94.31 Atrial fibrillation I48.19 Atrial fibrillation type: persistent (not longstanding) Hypercapnic respiratory failure J96.92 Obesity hypoventilation syndrome E66.2 New onset of congestive heart failure I50.9 Anticoagulation adequate with anticoagulant therapy Z79.01
[2022-06-07 12:42] VITALS: PULSE 53; RESP 18; O2SAT 94
[2022-06-07 12:43] VITALS: BP 93/54; PULSE 52; RESP 18; O2SAT 93
[2022-06-07 13:00] VITALS: BP 90/51; PULSE 52; RESP 18; O2SAT 91
[2022-06-07 13:15] VITALS: BP 138/75; PULSE 51; RESP 18; O2SAT 91
--- NOTE | 2022-06-07 13:45 | PC.NURSE ---
1345: Transfer orders received. TR Band to patients right wrist clean, dry, et intact. No drainage or hematoma. Vital signs WDL, no c/o pain or discomfort. Report given to ZHANG Gaspar. Patient transferred to CSU via wheelchair. All belongings sent with patient.
--- NOTE | 2022-06-07 14:53 | P.DS_ITS ---
Discharge Providers Date of Admission: 06/07/22 14:35 Date of Discharge: June 07, 2022 Attending Provider at Admission: Braydon Campos MD Attending Provider at Discharge: Braydon Campos MD Primary Care Provider: Arsalan Mak MD Diagnoses at Discharge Discharge Diagnosis (1) Abnormal EKG: Status: Acute (2) Atrial fibrillation: Status: Acute Qualifiers: Atrial fibrillation type: persistent (not longstanding) Qualified Code(s): I48.19 - Other persistent atrial fibrillation (3) Hypercapnic respiratory failure: Status: Acute (4) Obesity hypoventilation syndrome: Status: Acute (5) New onset of congestive heart failure: Status: Acute (6) Anticoagulation adequate with anticoagulant therapy: Status: Acute Reason for Visit Reason for Visit: [id number] z13.811 Brief History: Patient had presented to the office for routine visit with the nurse practitioner. He told her that he was having some difficulties with an uncomfortable sensation in his mid epigastrium in his lower chest. She obtained an EKG which revealed significant ST segment elevation in the inferior leads. She called me and I looked at his old EKGs. He did not have anything like this before. He did not look sick and did not look like he was having a myocardial infarction but with that degree of ST elevation I decided to admit him and place him in the catheterization laboratory Hospital Course Hospital Course His coronary arteries are normal. His left ventriculogram is normal. The procedure was done from the right radial artery Physical Exam Narrative: GENERAL: Comfortable at rest HEENT: Exam within normal limits. NECK: Supple without jugular vein distention. The carotid upstroke is normal without bruits. BACK: Exam normal. LUNGS: Clear. HEART: Regular rate and rhythm. ABDOMEN: Benign without organomegaly or tenderness. EXTREMITIES: No edema. At discharge the right radial artery area is flat, dry without hematoma or bleeding NEUROLOGIC: Exam normal. SKIN: Unremarkable. 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 Probably normal barium enema. 2. Because of the patient's large size the ascending colon and the proximal transverse colon were only partly filled. Procedures Performed Left heart catheterization, coronary angiography, left ventriculography Vitals Last Vital Signs Pulse 51 L 06/07/22 13:15 Resp 18 06/07/22 13:15 BP 138/75 06/07/22 13:15 Pulse Ox 91 06/07/22 13:15 O2 Del Method 06/07/22 13:15 Discharge Plan Discharge Patient Disposition: Home Prescriptions: Continued acetaminophen [Tylenol Arthritis Pain] 650 mg tablet extended release 1,300 mg PO DAILY Eliquis 5 mg tablet 5 mg PO BID@ Qty: 180 3RF atorvastatin 40 mg tablet 40 mg PO BEDTIME Qty: 90 3RF lisinopril-hydrochlorothiazide 10-12.5 mg tablet 1 tab PO DAILY ferrous sulfate [Feosol] 325 mg (65 mg iron) tablet 325 mg PO DAILY cholecalciferol (vitamin D3) 50 mcg (2,000 unit) tablet,chewable 50 mcg PO DAILY diltiazem HCl 120 mg capsule,extended release 24hr 120 mg PO DAILY@17 Qty: 90 3RF metoprolol tartrate 50 mg tablet 50 mg PO BID@ Qty: 180 3RF amiodarone 200 mg tablet 200 mg PO BID Qty: 180 3RF furosemide 20 mg tablet 20 mg PO DAILY PRN (Reason: for edema or weight gain more than 2lbs) Qty: 90 1RF Rx Instructions: take with potassium tablet potassium chloride [Klor-Con M20] 20 mEq tablet,ER particles/crystals 20 meq PO DAILY@09 PRN (Reason: take with lasix tablet as needed) Qty: 90 1RF PreserVision AREDS-2 098-524-16-1 [id number]-nf-mg Capsule 1 tab PO DAILY Tart Arboleda Extract 1,000 mg Capsule 1,000 mg PO DAILY Discharge Orders: Discharge Order (Routine); Ordered 06/07/22 Ordered By: Braydon Campos Referrals: Azucena Fenton FNP [Nurse Practitioner] - 7-10 days (Right radial artery check and chemistry panel) Discharge Diet: Usual diet Discharge Activity: Limit activity as instructed Patient Instructions: Opioid Safety Activity Restrictions/Additional Instructions: No lifting over 5 pounds for 2 days with the right arm. Discharge Attestations Time Spent in Discharge Care*: greater than 30 min Quality Metrics Clinical Quality Measures [ No reported AMI, CVA or VTE this stay] Coding Level of Care Code Acute Code for Chg Fwd Diagnoses Abnormal EKG R94.31 Atrial fibrillation I48.19 Atrial fibrillation type: persistent (not longstanding) Hypercapnic respiratory failure J96.92 Obesity hypoventilation syndrome E66.2 New onset of congestive heart failure I50.9 Anticoagulation adequate with anticoagulant therapy Z79.01
[2022-06-07 18:56] VITALS: BP 138/75; PULSE 51; RESP 18; O2SAT 91
== END 2022-02-06 07:36 | disposition home or self-care (01) ==
LOC: RAD 07:47 → CSU 06-07 14:53
PROVIDERS: Internal Medicine Cardiovascular Disease; PCP Family Medicine; Visit Provider Surgery Vascular Surgery
DX: Z13.811 Encounter for screening for lower gastrointestinal disorder (principal)
CPT/HCPCS: 36415; 74270; 93458; 96365; 99152; 99153; C1769; C1887; C1894; G0378; J1644; J2250; J3010; J3490; J7030; Q9967

== ENCOUNTER → 2022-03-28 13:16 | Outpatient (BNVA) | payer OTHER, SELFPAY | PROVIDERS: PCP Family Medicine; Visit Provider Emergency Medicine | DX: M10.9 Gout, unspecified (principal) | CPT/HCPCS: 80048; 84550 ==

== ENCOUNTER 2022-06-07 12:01 | Day surgery (SDC) | payer OTHER, SELFPAY | END 2022-06-07 17:00 | disposition home or self-care (01) | LOC: CCL 06-10 10:35 → CSU 06-10 10:37 | PROVIDERS: PCP Family Medicine; Visit Provider Internal Medicine Cardiovascular Disease | DX: R94.31 Abnormal electrocardiogram [ECG] [EKG] (principal); I48.19 Other persistent atrial fibrillation; J96.92 Respiratory failure, unspecified with hypercapnia; I50.9 Heart failure, unspecified; E66.2 Morbid (severe) obesity with alveolar hypoventilation; Z79.01 Long term (current) use of anticoagulants; Z87.891 Personal history of nicotine dependence | CPT/HCPCS: 36415; 93458; 96365; 99152; 99153; C1769; C1887; C1894; G0378; J1644; J2250; J3010; J3490; J7030; Q9967 ==

== ENCOUNTER → 2022-06-20 16:15 | Outpatient (BNVA) | payer OTHER, SELFPAY | PROVIDERS: PCP Family Medicine; Visit Provider Nurse Practitioner Family | DX: I48.91 Unspecified atrial fibrillation (principal) | CPT/HCPCS: 36415; 80048 ==

== ENCOUNTER 2022-08-25 09:52 | Observation (INO) | payer OTHER, SELFPAY ==
[2022-08-25] VITALS (10 sets, daily range): BP systolic 116–160; BP diastolic 70–100; PULSE 50–93; RESP 13–18; TEMP 36.4–37.1; O2SAT 91–97; BMI 44.4; BMI 44.7
--- NOTE | 2022-08-25 10:00 | XRR_ITS ---
PROCEDURE INFORMATION: Exam: XR Chest Exam date and time: 08/25/2022 10:34 AM Age: 62 years old Clinical indication: Pain; Chest pressure; Additional info: Chest pain TECHNIQUE: Imaging protocol: Radiologic exam of the chest. Views: 1 view. COMPARISON: CR XR chest 1V portable [id number] 05/23/2020 6:18 AM FINDINGS: Lungs: Faint bandlike opacity projecting over the left lower lung zone that may be artifactual related to overlying confluence of electrodes. Remaining lung luong aerated and clear. Pleural spaces: Unremarkable. No pleural effusion. No pneumothorax. Heart/Mediastinum: Unremarkable. No cardiomegaly. Bones/joints: Unremarkable for age. XR/XR chest 1V portable [id number] IMPRESSION: Questionable bandlike opacity left lower lung zone, possibly artifactual. Recommend repeat chest x-ray with repositioning electrodes for clarification.
--- NOTE | 2022-08-25 10:11 | ECG_ITS ---
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 Measurements Intervals [place] Rate: 51 P: 242 TN: 176 QRS: 62 QRSD: 100 T: 53 QT: 441 QTc: 407 Interpretive Statements ECTOPIC ATRIAL BRADYCARDIA MINIMAL ST DEPRESSION [0.025+ mV ST DEPRESSION] ABNORMAL RHYTHM ECG Compared to ECG 08/25/2020 12:49:45 Bradycardia, nonsinus now present ST (T wave) deviation now present Atrial fibrillation no longer present Electronically Signed On 08-26-2022 23:35:38 CDT by Minh Bower M.D. [email or web address]
--- NOTE | 2022-08-25 10:18 | W.ED.CHESTPA ---
HPI - Chest Pain General: Chief Complaint: Chest Pain Stated Complaint: chest pain, sob Time Seen by Provider: 08/25/22 10:01 History of Present Illness: Williams Ross is a 62-year-old man that presents to the emergency department with cute onset of chest pain and shortness of breath. Patient reports that he woke up with sternal chest pain this morning that radiated into the left upper extremity on a couple occasions. He reports nausea but no vomiting, shortness of breath, and diaphoresis. Patient has a history of disease without coronary artery occlusion or stenosis, atrial fibrillation and is anticoagulated, hyperlipidemia, hypertension, obesity, and edema Patient reports inability to lay flat or shortness of breath increases He states he has taken all his medications He was last seen in May and underwent a heart cath. Associated symptoms: Reports dyspnea and palpitations; Deny abdominal pain, fever(s), nausea or vomiting Review of Systems General: Reports: 10 or more systems reviewed and unremarkable except in HPI and below Const: Reports: change in weight (Increased weight); Denies: fever(s), chills, change in appetite, fatigue or malaise Eyes: Denies: change in vision, eye discomfort, eye discharge or eye redness ENMT: Denies: throat pain, enlarged tonsils, odynophagia, hoarseness, ear or mastoid pain, ear discharge, change in hearing, tinnitus, nasal discharge, nasal congestion, post nasal drip or sinus pain Card: Reports: chest pain, palpitations, irregular heart rhythm, lightheadedness, dyspnea on exertion and orthopnea; Denies: edema or leg pain with exertion Resp: Reports: dyspnea and chest congestion; Denies: productive cough, non-productive cough, wheezing or stridor GI: Denies: abdominal pain, nausea, vomiting, dysphagia, diarrhea, constipation, bloating, GI cramping or hematochezia : Denies: flank pain, dysuria, urinary frequency, urinary urgency, urinary hesitancy, oliguria or hematuria Musc: Denies: neck pain, back pain, extremity pain, joint pain, joint swelling, joint redness, joint warmth or muscle weakness Skin/Breast: Denies: rash, pruritus, erythema, photosensitivity or new lesions Neuro: Reports: dizziness; Denies: headache(s), numbness in extremities, weakness in extremities, sensory changes, lack of coordination, difficulty walking, frequent falls, confusion, Slurred speech present, difficulty communicating thoughts, seizure-like activity or involuntary movements Endo: Denies: polyuria, polydipsia or tired all the time Nba/Lymph: Denies: easy bruising or easy bleeding PFSH ED PFSH: Medical History Abnormal EKG Anticoagulation adequate with anticoagulant therapy Arthritis Atrial fibrillation with rapid ventricular response Former smoker Hypercapnic respiratory failure Hypertension Hypokalemia Morbid obesity due to excess calories New onset of congestive heart failure Retained myringotomy tube in left ear Sleep apnea with hypersomnolence Surgical History H/O hernia repair S/P left knee arthroscopy Family History Mother Cancer Liver cancer Social History Smoking and tobacco status: former smoker Alcohol intake: never Substance/Drug Use: never Physical Exam Const: COMMON NORMALS: no acute distress, patient oriented x3 and alert GENERAL APPEARANCE: cooperative ORIENTATION/CONSCIOUSNESS: Yes awake, Yes oriented to person, Yes oriented to place and Yes oriented to time HENMT: COMMON NORMALS: normocephalic and atraumatic HEAD & SCALP: normocephalic and atraumatic FACE & SINUS: normal facial exam MOUTH: Normal oral and palatal mucosa present THROAT: posterior oropharynx normal Eye: COMMON NORMALS: Equal, round and reactive pupils present, EOMs intact bilaterally, conjunctivae normal and no scleral icterus GENERAL EYE: appearance normal, both eyes and all related structures ALIGNMENT: Yes alignment normal PERIORBITAL: periorbital findings normal CONJUNCTIVA: Yes conjunctivae normal PUPIL: Yes Equal, round and reactive pupils present Neck/C-Spine: COMMON NORMALS: full ROM GENERAL: Yes normal visual inspection Lymph: LYMPHATIC: no lymphadenopathy noted Chest: COMMONS NORMALS: normal inspection of the chest Breast/axilla inspection: Yes no chest deformity, asymmetry, normal contours, no nodules, masses, tenderness Resp: COMMON NORMALS: normal respiratory effort, No retractions and No use of accessory muscles EFFORT & INSPECTION: Yes able to speak in complete sentences and Yes symmetric chest movement AUSCULTATION: crackles Laterality: bilateral Cardio: COMMON NORMALS: Peripheral pulses 2+ throughout JUGULAR VENOUS DISTENTION: no JVD RATE: bradycardic RHYTHM: abnormal rhythm irregularly irregular PERIPHERAL PULSES: Peripheral pulses 2+ throughout OTHER: History of atrial fibrillation GI: COMMON NORMALS: Soft to palpation and non-tender INSPECTION: Yes central obesity and Yes visible herniation AUSCULTATION: Yes normoactive bowel sounds PALPATION: Yes Soft to palpation RECTAL EXAM: Yes deferred Extremity: COMMON NORMALS: normal to inspection GENERAL: Yes normal exam except as noted Neuro: COMMON NORMALS: patient oriented x3 SENSORIUM/ORIENTATION: Yes alert, Yes oriented to person, Yes oriented to place and Yes oriented to time CRANIAL NERVES: Yes CN normal except as noted Psych: COMMON NORMALS: mental status grossly normal, Normal thought process present, cooperative, activity/motor behavior normal, denies homicidal ideation and denies suicidal ideation THOUGHT PROCESS: Normal thought process present Skin: COMMON NORMALS: no rashes or lesions noted, no wounds and turgor normal GENERAL SKIN EXAM: no rashes or lesions noted and turgor normal Course Vital Signs: Vital signs: Vital Signs Temperature 98.1 F 08/25/22 10:01 Pulse Rate 52 L 08/25/22 11:05 Respiratory Rate 17 08/25/22 11:05 Blood Pressure 160/80 08/25/22 11:05 Pulse Oximetry 97 08/25/22 11:05 Oxygen Delivery Me thod Room Air 08/25/22 11:05 MDM - Chest Pain Medical Decision Making Patient is a 62-year-old man with multiple known risk factors For cardiovascular disease that presents to the emergency department for chest pain, shortness of breath. Patient does have a history of atrial fibrillation with RVR and is currently anticoagulated. Patient states this morning his pain in his chest woke him. He took all of his normal medications this morning. Patient describes difficulty laying flat and shortness of breath worsening when he attempts to. Denies any edema in the lower extremities He had a heart cath approximately 2 months ago that was clean . He did have several medication changes at that time. While in the emergency department he underwent the usual work-up that included EKG, chest x-ray, laboratory evaluation. He is in no acute distress right now and denies any chest pain but does have shortness of breath. EKG shows depression in the V1 and V2 leads Patient troponin is 40. I consulted with Dr. Clinton, hospitalist for further discussion. It is likely that the patient is in the heart failure and spite of BNP. He has had 6 pound weight gain in the last several days and correlating with increased work of breathing and shortness of breath Patient is going to be admitted for observation. Family and patient were updated Lab Data 08/25/22 10:23 08/25/22 10:23 Laboratory Results WBC 6.6 10^3/uL (4.0-10.0) 08/25/22 10:23 RBC 4.17 10^6/uL (4.1-5.3) 08/25/22 10:23 Hgb 12.7 g/dL (11.7-16.6) 08/25/22 10:23 Hct 41.5 % (42.0-52.0) L 08/25/22 10:23 MCV 99.5 fl (80-94) H 08/25/22 10:23 MCH 30.5 pg (28.0-34.0) 08/25/22 10:23 MCHC 30.6 g/dL (30.0-36.0) 08/25/22 10:23 RDW 13.4 % (12.1-15.1) 08/25/22 10:23 Plt Count 241 10^3/cmm (130-400) 08/25/22 10:23 MPV 9.7 fL (7.4-10.4) 08/25/22 10:23 Neut % (Auto) 65.0 % 08/25/22 10:23 Lymph % (Auto) 20.9 % 08/25/22 10:23 Woodson % (Auto) 7.9 % 08/25/22 10:23 Eos % (Auto) 5.0 % 08/25/22 10:23 Baso % (Auto) 0.9 % 08/25/22 10:23 Neut # (Auto) 4.29 10^3/uL (1.8-7.7) 08/25/22 10:23 Lymph # (Auto) 1.4 10^3/uL (0.8-4.8) 08/25/22 10:23 Woodson # (Auto) 0.5 10^3/uL (0.2-0.9) 08/25/22 10:23 Eos # (Auto) 0.3 10^3/uL (0.0-0.8) 08/25/22 10:23 Baso # (Auto) 0.1 10^3/uL (0.0-0.1) 08/25/22 10:23 Nucleated RBC % (auto) 0 % 08/25/22 10:23 Nucleated RBCs # 0.0 /100WBC 08/25/22 10:23 PT 13.40 SECONDS (12.1-14.9) 08/25/22 10:23 INR 0.99 (0.8-1.2) 08/25/22 10:23 Sodium 140 mmol/L (136-145) 08/25/22 10:23 Potassium 3.7 mmol/L (3.5-5.1) 08/25/22 10:23 Chloride 104 mmol/L (98-107) 08/25/22 10:23 Carbon Dioxide 26 mmol/L (22-29) 08/25/22 10:23 Anion Gap 13.7 (5-19) 08/25/22 10:23 BUN 13 mg/dL (8-23) 08/25/22 10:23 Creatinine 0.8 mg/dL (0.7-1.2) 08/25/22 10:23 GFR Calculation 97.6 mL/min (90-130) 08/25/22 10:23 Glucose 84 mg/dL (65-115) 08/25/22 10:23 Calculated Osmolality 289 mOsm/kg (285-295) 08/25/22 10:23 Calcium 9.0 mg/dL (8.5-10.5) 08/25/22 10:23 Total Bilirubin 0.4 mg/dL (0.15-1.2) 08/25/22 10:23 AST 22 U/L (0-40) 08/25/22 10:23 ALT 26 U/L (0-41) 08/25/22 10:23 Alkaline Phosphatase 95 U/L (40-130) 08/25/22 10:23 Troponin T Baseline 40 ng/L (0-15) H 08/25/22 10:23 NT-Pro-B Natriuret Pep 634 pg/mL (0-125) H 08/25/22 10:23 Total Protein 6.6 g/dL (6.6-8.7) 08/25/22 10:23 Albumin 3.8 g/dL (3.5-5.2) 08/25/22 10: Globulin 2.8 g/dL (1.3-4.6) 08/25/22 10:23 Urine Color Straw (Yellow) 08/25/22 11:24 Urine Appearance Clear (CLEAR) 08/25/22 11:24 Urine pH 5 (5-7) 08/25/22 11:24 Ur Specific [place] 1.010 (1.005-1.030) 08/25/22 11:24 Urine Protein Neg (Negative) 08/25/22 11:24 Urine Glucose (UA) Norm (Normal) 08/25/22 11:24 Urine Ketones Negative (Negative) 08/25/22 11:24 Urine Blood Neg (Negative) 08/25/22 11:24 Urine Nitrate Negative (Negative) 08/25/22 11:24 Urine Bilirubin Neg (Negative) 08/25/22 11:24 Urine Urobilinogen Norm mg/dL (Negative) 08/25/22 11:24 Ur Leukocyte Esterase Negative (Negative) 08/25/22 11:24 Discharge Plan Discharge Patient Disposition: Admitted As Inpatient Clinical Impression: Atrial fibrillation, Chest pain Condition: Stable Prescriptions: No Action acetaminophen [Tylenol Arthritis Pain] 650 mg tablet extended release 1,300 mg PO DAILY PRN (Reason: Pain) lisinopril-hydrochlorothiazide 10-12.5 mg tablet 1 tab PO DAILY ascorbic acid (vitamin C) 1,000 mg capsule 1 g PO DAILY metoprolol tartrate 50 mg tablet 25 mg PO BID Qty: 180 3RF ferrous sulfate [Feosol] 325 mg (65 mg iron) tablet 325 mg PO DAILY cholecalciferol (vitamin D3) 50 mcg (2,000 unit) tablet,chewable 50 mcg PO DAILY furosemide 20 mg tablet 20 mg PO DAILY PRN (Reason: for edema or weight gain more than 2lbs) Qty: 90 1RF Rx Instructions: take with potassium tablet potassium chloride [Klor-Con M20] 20 mEq tablet,ER particles/crystals 20 meq PO DAILY@09 PRN (Reason: take with lasix tablet as needed) Qty: 90 1RF amiodarone 200 mg tablet 200 mg PO DAILY Qty: 180 1RF atorvastatin 40 mg tablet 40 mg PO BEDTIME Qty: 90 3RF Eliquis 5 mg tablet 5 mg PO BID@09,17 Qty: 180 3RF diltiazem HCl 120 mg capsule,extended release 24hr 120 mg PO DAILY@17 Qty: 90 3RF PreserVision AREDS-2 [id number]-mg Capsule 1 tab PO DAILY Tart Arboleda Extract 1,000 mg Capsule 1,000 mg PO DAILY docusate sodium 100 mg Capsule 100 mg PO DAILY Referrals: Arsalan Mak MD [Primary Care Provider] - Coding Level of Care Code ED Embedded Engineer for Domonique Parikh
[2022-08-25 10:27] LABS: Basophils # 0.1 10^3/uL (0.0-0.1); Basophils % 0.9 %; Eosinophils # 0.3 10^3/uL (0.0-0.8); Hematocrit 41.5 % (42.0-52.0); Hemoglobin 12.7 g/dL (11.7-16.6); Lymphocytes # 1.4 10^3/uL (0.8-4.8); Lymphocytes % 20.9 %; Mean Corpuscular HGB Conc 30.6 g/dL (30.0-36.0); Mean Corpuscular Hemoglobin 30.5 pg (28.0-34.0); Mean Corpuscular Volume 99.5 fl (80-94); Mean Platelet Volume 9.7 fL (7.4-10.4); Monocytes # 0.5 10^3/uL (0.2-0.9); Monocytes % 7.9 %; Neutrophils # 4.29 10^3/uL (1.8-7.7); Nucleated Red Blood Cells % 0 %; Platelet Count 241 10^3/cmm (130-400); Red Blood Count 4.17 10^6/uL (4.1-5.3); Red Cell Distribution Width 13.4 % (12.1-15.1); White Blood Count 6.6 10^3/uL (4.0-10.0)
[2022-08-25 10:44] LABS: INR 0.99 (0.8-1.2)
[2022-08-25 10:54] LABS: Troponin(5th) Baseline 40 ng/L (0-15)
[2022-08-25 10:58] LABS: Alanine Aminotransferase 26 U/L (0-41); Albumin Level 3.8 g/dL (3.5-5.2); Alkaline Phosphatase 95 U/L (40-130); Anion Gap 13.7 (5-19); Aspartate Amino Transferase 22 U/L (0-40); Blood Urea Nitrogen 13 mg/dL (8-23); Carbon Dioxide 26 mmol/L (22-29); Chloride 104 mmol/L (98-107); Globulin 2.8 g/dL (1.3-4.6); Glomerular Filtration Rate 97.6 mL/min (90-130); Glucose 84 mg/dL (65-115); NT Pro B Type Natriuretic Pept 634 pg/mL (0-125); Osmolality Calculated 289 mOsm/kg (285-295); Potassium 3.7 mmol/L (3.5-5.1); Sodium 140 mmol/L (136-145); Total Bilirubin 0.4 mg/dL (0.15-1.2); Total Protein 6.6 g/dL (6.6-8.7)
[2022-08-25 11:30] LABS: Add Urine Microscopic? NO; Charge for UA Resulting for Rev
[2022-08-25 11:35] LABS: Bilirubin Urine Neg (Negative); Blood Urine Neg (Negative); Glucose Urine UA Norm (Normal); Ketones Urine Negative (Negative); Leukocyte Esterase Urine Negative (Negative); Nitrate Urine Negative (Negative); Protein Urine Neg (Negative); Urine Appearance Clear (CLEAR); Urine Color Straw (Yellow); Urobilinogen Urine Norm (Negative); pH Urine 5 (5-7)
--- NOTE | 2022-08-25 11:42 | ECG_ITS ---
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 Measurements Intervals [place] Rate: 49 P: 0 NH: 0 QRS: 51 QRSD: 105 T: 46 QT: 459 QTc: 417 Interpretive Statements SUPRAVENTRICULAR BRADYCARDIA POSSIBLE LATERAL MYOCARDIAL INFARCTION , OF INDETERMINATE AGE [30 ms Q WAVE IN I/aVL/V5/V6] Compared to ECG 08/25/2022 10:11:17 Myocardial infarct finding now present Bradycardia, nonsinus no longer present ST (T wave) deviation no longer present Electronically Signed On 08-27-2022 8:35:12 CDT by Minh Bower M.D. [id number]
--- NOTE | 2022-08-25 11:43 | PM.HP ---
Providers/Chief Complaint Admitting Physician: Noah Clinton MD Primary Care Provider: Arsalan Mak MD Chief Complaint: chest pain, sob History of Present Illness Williams Ross is a 62 year old male with a past medical history significant for arthritis, hypertension, atrial fibrillation, tobacco use disorder in remission, sleep apnea, and congestive heart failure who presents to the emergency department with chest pain. Reports symptoms started this morning. Symptoms present at rest. Described as chest pressure. Rates 10 out of 10 earlier today. Denies alleviating or aggravating factors. Endorses associated symptoms of at least 6 pounds weight gain in prior days. He does have a history of CHF. Patient underwent cardiac cath in May 2022 which showed no obstructive CAD. Review of Systems Narrative: A complete review of systems was obtained and is negative except as stated in HPI. Medications/Allergies Home Medications Medication Instructions Recorded Confirmed Last Taken Type sour arboleda extract 1,000 mg 1,000 mg PO DAILY 05/22/20 08/25/22 08/25/22 History capsule (Tart Arboleda Extract) vit C 250 mg-vit E 90 mg-zinc 40 1 tab PO DAILY 05/22/20 08/25/22 08/25/22 History mg-copper 1 [id number] capsule (PreserVision AREDS-2) acetaminophen 650 mg 1,300 mg PO DAILY PRN Pain 06/08/21 08/25/22 Unknown History tablet,extended release (Tylenol Arthritis Pain) lisinopril 10 1 tab PO DAILY 12/07/21 08/25/22 08/25/22 History mg-hydrochlorothiazide 12.5 mg tablet furosemide 20 mg tablet 20 mg PO DAILY PRN for edema or 06/03/22 08/25/22 08/25/22 Rx weight gain more than 2lbs #90 tabs potassium chloride 20 mEq 20 meq PO DAILY@09 PRN take with 06/04/22 08/25/22 08/25/22 Rx tablet,extended lasix tablet as needed #90 tabs release(part/cryst) (Klor-Con M) cholecalciferol (vitamin D3) 50 50 mcg PO DAILY 06/07/22 08/25/22 08/25/22 History mcg (2,000 unit) chewable tablet ferrous sulfate 325 mg (65 mg 325 mg PO DAILY 06/07/22 08/25/22 08/25/22 History iron) tablet (Feosol) amiodarone 200 mg tablet 200 mg PO DAILY #180 tabs 06/20/22 08/25/22 08/25/22 Rx ascorbic acid (vitamin C) 1,000 mg 1 g PO DAILY 06/20/22 08/25/22 08/25/22 History capsule metoprolol tartrate 50 mg tablet 25 mg PO BID #180 tabs 06/20/22 08/25/22 08/25/22 Rx atorvastatin 40 mg tablet 40 mg PO BEDTIME #90 tabs 07/11/22 08/25/22 08/24/22 Rx apixaban 5 mg tablet (Eliquis) 5 mg PO BID@,17 #180 tabs 07/26/22 08/25/22 08/25/22 Rx diltiazem HCl 120 mg 120 mg PO DAILY@17 #90 caps 07/29/22 08/25/22 08/25/22 Rx capsule,extended release 24 hr docusate sodium 100 mg capsule 100 mg PO DAILY 08/25/22 08/25/22 08/25/22 History Allergies Allergy/AdvReac Type Severity Reaction Status Date / Time No Known Allergies Allergy Verified 06/20/22 15:16 PFSH Acute PFSH: Medical History (Updated 08/25/22 @ 18:41 by Noah Clinton MD) Abnormal EKG Anticoagulation adequate with anticoagulant therapy Arthritis Atrial fibrillation with rapid ventricular response Former smoker Hypercapnic respiratory failure Hypertension Hypokalemia Morbid obesity due to excess calories New onset of congestive heart failure Retained myringotomy tube in left ear Sleep apnea with hypersomnolence Surgical History H/O hernia repair S/P left knee arthroscopy Family History Mother Cancer Liver cancer Social History Smoking and tobacco status: former smoker Alcohol intake: never Substance/Drug Use: never Vitals/I&O/Wt Last Vital Signs Temp 98.1 F 08/25/22 10:01 Pulse 52 L 08/25/22 11:05 Resp 17 08/25/22 11:05 BP 160/80 08/25/22 11:05 Pulse Ox 97 08/25/22 11:05 O2 Del Method Room Air 08/25/22 11:05 Weight last 48 hrs Weight 161.479 kg Physical Exam Narrative: General: Patient is awake and alert. Head: Normocephalic. Atraumatic. EOM intact. Neck: No JVD. Cardiovascular: RRR. No gallops. No murmurs. Lungs: Breath sounds diminished in bilateral bases, no use of accessory muscles, no crackles or wheezes. Skin: No jaundice. No rashes. Abdomen: Normal bowel sounds, abdomen soft and nontender. Extremities: No cyanosis or clubbing. Musculoskeletal: 5/5 strength, normal range of motion, no swollen or erythematous joints. Neurological: Moves all 4 extremities. No myoclonus. Data 08/25/22 10:23 08/25/22 10:23 A&P Assessment and plan (1) Chest pain: Suspect CHF related rather than ischemia give recent cardiac cath, EKG results Trend troponin Telemetry Diuresis (2) Congestive heart failure: Weight gain noted Start IV lasix, hold home oral lasix Strict I&Os Daily weights (3) Myocardial injury: Telemetry (4) Atrial fibrillation: Continue amiodarone Continue apixaban Continue diltiazem Continue metoprolol (5) Hypertension: Continue lisinopril-HCTZ (6) Hypokalemia: Continue potassium supplementation (7) Morbid obesity due to excess calories: Would benefit from weightloss Plan DVT ppx: Apixaban Code Status: Full Code Attestations Medical Necessity Statement*: Patient presents with chest pain likley secondary to CHF w/ expected hospitalization not to cross two midnights. Coding Level of Care Code Acute Code for [facility] Fwd Diagnoses Chest pain R07.9 Congestive heart failure I50.9 Myocardial injury I5A Atrial fibrillation I48.91 Hypertension I10 Hypokalemia E87.6 Morbid obesity due to excess calories E66.01
[2022-08-25 14:26] LABS: Procalcitonin 0.03 ng/mL (0-0.5)
[2022-08-25] MEDS: FUROsemide 10 mg/mL SDV 4mL 40 MG IVP (15:45)
--- NOTE | 2022-08-25 16:00 | ECG_ITS ---
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 Measurements Intervals [place] Rate: 54 P: -86 TN: 249 QRS: 41 QRSD: 108 T: 50 QT: 443 QTc: 423 Interpretive Statements SINUS BRADYCARDIA WITH FIRST DEGREE AV BLOCK Compared to ECG 08/25/2022 11:42:30 First degree AV block now present Myocardial infarct finding no longer present Electronically Signed On 08-27-2022 8:34:48 CDT by Minh Bower M.D. [id number]
[2022-08-25] MEDS: atorvastatin 40 mg Tablet PO (20:36)
[2022-08-26] VITALS (8 sets, daily range): BP systolic 104–161; BP diastolic 67–82; PULSE 57–64; RESP 18; TEMP 36.3–37; O2SAT 90–98
[2022-08-26] MEDS: lisinopril 20 mg Tablet PO (09:36)
[2022-08-26] MEDS: FUROsemide 10 mg/mL SDV 4mL 40 MG IVP (09:36)
[2022-08-26] MEDS: ferrous sulfate EC 325 mg Tablet PO (09:42)
[2022-08-26] MEDS: hydroCHLOROthiazide 25 mg Tablet PO (09:42)
[2022-08-26] MEDS: metoprolol tartrate 50 mg Tablet 25 MG PO (09:42)
[2022-08-26] MEDS: amiodarone 200 mg Tablet PO (09:42)
[2022-08-26] MEDS: apixaban 5 mg Tablet PO (09:59)
--- NOTE | 2022-08-26 11:08 | P.DS_ITS ---
Discharge Providers Date of Admission: 08/25/22 11:43 Date of Discharge: August 26, 2022 Attending Provider at Admission: Noah Clinton MD Attending Provider at Discharge: Barby Villa MD Primary Care Provider: Arsalan Mak MD Diagnoses at Discharge Discharge Diagnosis (1) Chest pain: Status: Acute (2) Congestive heart failure: Status: Acute (3) Myocardial injury: Status: Acute (4) Atrial fibrillation: Status: Acute (5) Hypertension: Status: Acute (6) Hypokalemia: Status: Acute (7) Morbid obesity due to excess calories: Status: Acute Reason for Visit Reason for Visit: chest pain, sob Hospital Course Hospital Course 61-year-old male with history of preserved ejection fraction heart failure he was seen by car lubricator earlier this year when there were abnormal EKG findings in the clinic patient had normal coronary arteries ejection fraction was normal this time he was admitted for CHF exacerbation, diuresed 2300 mL over night, I have decided to switch his Lasix to 1 mg of Bumex for better GI absorption I have counseled him to take potassium with it and monitor his sodium intake along fluid. Patient has not required CPAP for his sleep apnea, I will discharge him today with instructions to take Bumex 1 mg daily. Patient will be discharged with stable hemodynamics. He also carries history of atrial fibrillation, no signs of RVR, he will continue his AV guillermo blocking except diltiazem because he has been bradycardic, there were no signs of left ventricular thrombus on transesophageal echo that was done in May of this year. I do believe patient has poor insight to his sleep apnea which is causing D-CHF exacerbation, his sleep study shows he does have severe obstructive sleep apnea with nocturnal hypoxemia and CPAP/BiPAP was recommended His sleep study was done 2 years ago most likely he will need another study to get his CPAP/BiPAP approved for now he would qualify for 2 L of oxygen Physical Exam Narrative: Morbidly obese Signs of fluid improving Abdomen soft Addressed doing well on room air On ambulation and at nighttime requires 2 L of oxygen Discharge Data Studies Completed and Pending Completed Studies During Hospitalization Category Date Time Status XR chest 1V portable [id number] Stat Exams 08/25/22 10:00 Completed Radiology Impressions Chest X-Ray 08/25/22 10:00 IMPRESSION: Questionable bandlike opacity left lower lung zone, possibly artifactual. Recommend repeat chest x-ray with repositioning electrodes for clarification. Laboratory Results WBC 6.6 10^3/uL (4.0-10.0) 08/25/22 10:23 RBC 4.17 10^6/uL (4.1-5.3) 08/25/22 10:23 Hgb 12.7 g/dL (11.7-16.6) 08/25/22 10:23 Hct 41.5 % (42.0-52.0) L 08/25/22 10:23 MCV 99.5 fl (80-94) H 08/25/22 10:23 MCH 30.5 pg (28.0-34.0) 08/25/22 10:23 MCHC 30.6 g/dL (30.0-36.0) 08/25/22 10:23 RDW 13.4 % (12.1-15.1) 08/25/22 10:23 Plt Count 241 10^3/cmm (130-400) 08/25/22 10:23 MPV 9.7 fL (7.4-10.4) 08/25/22 10:23 Neut % (Auto) 65.0 % 08/25/22 10:23 Lymph % (Auto) 20.9 % 08/25/22 10:23 [place] % (Auto) 7.9 % 08/25/22 10:23 Eos % (Auto) 5.0 % 08/25/22 10:23 Baso % (Auto) 0.9 % 08/25/22 10:23 Neut # (Auto) 4.29 10^3/uL (1.8-7.7) 08/25/22 10:23 Lymph # (Auto) 1.4 10^3/uL (0.8-4.8) 08/25/22 10:23 [place] # (Auto) 0.5 10^3/uL (0.2-0.9) 08/25/22 10:23 Eos # (Auto) 0.3 10^3/uL (0.0-0.8) 08/25/22 10:23 Baso # (Auto) 0.1 10^3/uL (0.0-0.1) 08/25/22 10:23 Nucleated RBC % (auto) 0 % 08/25/22 10:23 Nucleated RBCs # 0.0 /100WBC 08/25/22 10:23 PT 13.40 SECONDS (12.1-14.9) 08/25/22 10:23 INR 0.99 (0.8-1.2) 08/25/22 10:23 Sodium 140 mmol/L (136-145) 08/25/22 10:23 Potassium 3.7 mmol/L (3.5-5.1) 08/25/22 10:23 Chloride 104 mmol/L (98-107) 08/25/22 10:23 Carbon Dioxide 26 mmol/L (22-29) 08/25/22 10:23 Anion Gap 13.7 (5-19) 08/25/22 10:23 BUN 13 mg/dL (8-23) 08/25/22 10:23 Creatinine 0.8 mg/dL (0.7-1.2) 08/25/22 10:23 GFR Calculation 97.6 mL/min (90-130) 08/25/22 10:23 Glucose 84 mg/dL (65-115) 08/25/22 10:23 Calculated Osmolality 289 mOsm/kg (285-295) 08/25/22 10:23 Calcium 9.0 mg/dL (8.5-10.5) 08/25/22 10:23 Total Bilirubin 0.4 mg/dL (0.15-1.2) 08/25/22 10:23 AST 22 U/L (0-40) 08/25/22 10:23 ALT 26 U/L (0-41) 08/25/22 10:23 Alkaline Phosphatase 95 U/L (40-130) 08/25/22 10:23 Troponin T Baseline 40 ng/L (0-15) H 08/25/22 10:23 Troponin T 120 Minute 36.50 ng/L (0-15) H 08/25/22 12:20 Delta Troponin T -3.50 ABS# (0-10) L 08/25/22 12:20 Troponin T Hi Sens 6Hr 37.90 ng/L (0-15) H 08/25/22 18:22 Troponin T Hi Sens 6Hr Delta -2.10 ng/L (0-12) L 08/25/22 18:22 NT-Pro-B Natriuret Pep 634 pg/mL (0-125) H 08/25/22 10:23 Total Protein 6.6 g/dL (6.6-8.7) 08/25/22 10: Albumin 3.8 g/dL (3.5-5.2) 08/25/22 10: Globulin 2.8 g/dL (1.3-4.6) 08/25/22 10:23 Procalcitonin 0.03 ng/mL (0-0.5) 08/25/22 12:20 Urine Color Straw (Yellow) 08/25/22 11:24 Urine Appearance Clear (CLEAR) 08/25/22 11:24 Urine pH 5 (5-7) 08/25/22 11:24 Ur Specific [place] 1.010 (1.005-1.030) 08/25/22 11:24 Urine Protein Neg (Negative) 08/25/22 11:24 Urine Glucose (UA) Norm (Normal) 08/25/22 11:24 Urine Ketones Negative (Negative) 08/25/22 11:24 Urine Blood Neg (Negative) 08/25/22 11:24 Urine Nitrate Negative (Negative) 08/25/22 11:24 Urine Bilirubin Neg (Negative) 08/25/22 11:24 Urine Urobilinogen Norm mg/dL (Negative) 08/25/22 11:24 Ur Leukocyte Esterase Negative (Negative) 08/25/22 11:24 Vitals Last Vital Signs Temp 97.5 F L 08/26/22 07:38 Pulse 62 08/26/22 09:39 Resp 18 08/26/22 07:38 BP 122/72 08/26/22 09:39 Pulse Ox 93 08/26/22 09:39 O2 Del Method Room Air 08/26/22 09:39 Discharge Plan Discharge Patient Disposition: Home Condition: Stable Prescriptions: New bumetanide 1 mg tablet 1 mg PO DAILY Qty: 60 2RF Continued acetaminophen [Tylenol Arthritis Pain] 650 mg tablet extended release 1,300 mg PO DAILY PRN (Reason: Pain) lisinopril-hydrochlorothiazide 10-12.5 mg tablet 1 tab PO DAILY ascorbic acid (vitamin C) 1,000 mg capsule 1 g PO DAILY metoprolol tartrate 50 mg tablet 25 mg PO BID Qty: 180 3RF ferrous sulfate [Feosol] 325 mg (65 mg iron) tablet 325 mg PO DAILY cholecalciferol (vitamin D3) 50 mcg (2,000 unit) tablet,chewable 50 mcg PO DAILY potassium chloride [Klor-Con M20] 20 mEq tablet,ER particles/crystals 20 meq PO DAILY@09 PRN (Reason: take with lasix tablet as needed) Qty: 90 1RF amiodarone 200 mg tablet 200 mg PO DAILY Qty: 180 1RF atorvastatin 40 mg tablet 40 mg PO BEDTIME Qty: 90 3RF Eliquis 5 mg tablet 5 mg PO BID@,17 Qty: 180 3RF PreserVision AREDS-2 130-845-19-1 [id number]-mg Capsule 1 tab PO DAILY Tart Arboleda Extract 1,000 mg Capsule 1,000 mg PO DAILY docusate sodium 100 mg Capsule 100 mg PO DAILY Discontinued furosemide 20 mg tablet 20 mg PO DAILY PRN (Reason: for edema or weight gain more than 2lbs) Qty: 90 1RF Rx Instructions: take with potassium tablet diltiazem HCl 120 mg capsule,extended release 24hr 120 mg PO DAILY@17 Qty: 90 3RF Referrals: Arsalan Mak MD [Primary Care Provider] - Patient Instructions: Opioid Safety Discharge Attestations Time Spent in Discharge Care*: greater than 30 min Quality Metrics Clinical Quality Measures [ No reported AMI, CVA or VTE this stay] Coding Level of Care Code Acute Code for Chg Fwd Diagnoses Chest pain R07.9 Congestive heart failure I50.9 Myocardial injury I5A Atrial fibrillation I48.91 Hypertension I10 Hypokalemia E87.6 Morbid obesity due to excess calories E66.01
== END 2022-08-26 14:30 | disposition home or self-care (01) ==
LOC: ER 11:56 → MEDSURG 12:20
PROVIDERS: Emergency Medicine; Admitting Provider Internal Medicine; Emergency Provider Nurse Practitioner; PCP Family Medicine; Visit Provider Internal Medicine
DX: I11.0 Hypertensive heart disease with heart failure (principal); I50.33 Acute on chronic diastolic (congestive) heart failure; R94.31 Abnormal electrocardiogram [ECG] [EKG]; G47.36 Sleep related hypoventilation in conditions classified elsewhere; I25.10 Atherosclerotic heart disease of native coronary artery without angina pectoris; E78.5 Hyperlipidemia, unspecified; G47.33 Obstructive sleep apnea (adult) (pediatric); E66.01 Morbid (severe) obesity due to excess calories; Z68.42 Body mass index [BMI] 45.0-49.9, adult; Z87.891 Personal history of nicotine dependence; Z79.01 Long term (current) use of anticoagulants; I44.0 Atrioventricular block, first degree
CPT/HCPCS: 36415; 71045; 80053; 81003; 83880; 84145; 84484; 85025; 85610; 93005; 94760; 96374; 99285; G0378; J1940

== ENCOUNTER → 2022-09-10 11:09 | Outpatient (BNVA) | payer OTHER, SELFPAY | PROVIDERS: PCP Family Medicine; Visit Provider Nurse Practitioner Family | DX: I50.30 Unspecified diastolic (congestive) heart failure (principal) | CPT/HCPCS: 36415; 80048; 83880 ==

== ENCOUNTER → 2022-09-19 10:43 | Outpatient (BNVA) | payer OTHER, SELFPAY | PROVIDERS: PCP Family Medicine; Referring Provider Nurse Practitioner Family; Visit Provider Nurse Practitioner Family | DX: I50.30 Unspecified diastolic (congestive) heart failure (principal) | CPT/HCPCS: 80048; 83880 ==

== ENCOUNTER → 2023-01-15 10:33 | Outpatient (BNVA) | payer OTHER, SELFPAY | PROVIDERS: PCP Family Medicine; Visit Provider Nurse Practitioner Family | DX: R68.89 Other general symptoms and signs (principal); B34.9 Viral infection, unspecified | CPT/HCPCS: 87400; 87426 ==

== ENCOUNTER → 2023-05-27 10:35 | Outpatient (BNVA) | payer OTHER, SELFPAY | PROVIDERS: PCP Family Medicine; Visit Provider Nurse Practitioner Family | DX: I10 Essential (primary) hypertension (principal); I48.91 Unspecified atrial fibrillation; I50.30 Unspecified diastolic (congestive) heart failure | CPT/HCPCS: 36415; 80048; 83880; 93005 ==

== ENCOUNTER → 2023-06-02 12:24 | Outpatient (BNVA) | payer OTHER, SELFPAY | PROVIDERS: PCP Family Medicine; Visit Provider Emergency Medicine | DX: I73.9 Peripheral vascular disease, unspecified (principal); M10.072 Idiopathic gout, left ankle and foot | CPT/HCPCS: 80048; 84550 ==

== ENCOUNTER 2023-06-06 10:30 | Outpatient (CLI) | payer OTHER, SELFPAY ==
--- NOTE | 2023-06-06 11:00 | USCV_ITS ---
Williams Ross Age: 62 Gender: M : 1960 Exam Date: 06/06/2023 10:41 Ordering Phys: Azucena Fenton Technologist: CT Exam [place] [facility] [place] Indication: claudication Risk Factors: Previous Vascular Surgery: RIGHT LEFT BP: 146.0 / 75.00 BP: 140.0/ 85.00 0 0 Waveform Velocity (cm/s) Velocity (cm/s) Waveform Triphasic 122.0 Iliac Prox 99.0 Triphasic Triphasic 100.0 Iliac Mid 90.0 Triphasic Triphasic Iliac Distal Triphasic 94.0 94.0 Triphasic 89.0 NOVELTIES SALES REPRESENTATIVE 87.0 Triphasic Triphasic 109.0 SFA Prox 109.0 Triphasic Triphasic 95.0 SFA Mid 100.8 Triphasic Triphasic 89.0 SFA Dist 83.0 Triphasic Triphasic 46.0 POP 67.0 Triphasic Triphasic 60.0 VALIDATION ENGINEER 74.0 Triphasic Triphasic 84.0 DPA 81.0 Triphasic 1.0 MAGALI 1.0 FINDINGS Minimal intimal thickening bilaterally in the arteries Normal Doppler flow velocities with forms and flow velocities. No unstable plaques or lesions noted Resting MAGALI 1.0 bilaterally CONCLUSIONS Normal resting ABIs bilaterally Minimal intimal thickening. No unstable plaques or lesions are noted No significant arterial obstruction, based on the above findings Dr Deo Perea MD [facility] (Electronically Signed) Final Date: 08 June 2023 20:42 S
== END 2023-06-06 10:31 | disposition home or self-care (01) ==
LOC: RAD 10:31
PROVIDERS: PCP Family Medicine; Visit Provider Nurse Practitioner Family
DX: I73.9 Peripheral vascular disease, unspecified (principal)
CPT/HCPCS: 93925

== ENCOUNTER → 2023-06-24 09:52 | Outpatient (BNVA) | payer OTHER, SELFPAY | PROVIDERS: PCP Nurse Practitioner; Visit Provider Nurse Practitioner | DX: M10.072 Idiopathic gout, left ankle and foot (principal); I10 Essential (primary) hypertension | CPT/HCPCS: 83880; 84550 ==

== ENCOUNTER → 2023-09-11 14:24 | Outpatient (BNVA) | payer OTHER, SELFPAY | PROVIDERS: PCP Nurse Practitioner; Referring Provider Nurse Practitioner; Visit Provider Student in an Organized Health Care Education/Training Program | DX: M70.61 Trochanteric bursitis, right hip; M16.11 Unilateral primary osteoarthritis, right hip | CPT/HCPCS: 73502 ==

== ENCOUNTER 2023-09-22 06:00 | Outpatient (RCR) | payer OTHER, SELFPAY | END 2023-09-28 23:59 | disposition home or self-care (01) | LOC: MPT 06:00 | PROVIDERS: PCP Nurse Practitioner; Visit Provider Student in an Organized Health Care Education/Training Program | DX: M70.61 Trochanteric bursitis, right hip (principal) | CPT/HCPCS: 97110; 97140; 97162 ==

== ENCOUNTER 2023-09-29 06:00 | Outpatient (RCR) | payer OTHER, SELFPAY | END 2023-10-29 23:59 | disposition home or self-care (01) | LOC: MPT 06:00 | PROVIDERS: PCP Nurse Practitioner; Visit Provider Student in an Organized Health Care Education/Training Program | DX: M70.61 Trochanteric bursitis, right hip (principal) | CPT/HCPCS: 97110; 97140; 97535; G0283 ==

== ENCOUNTER → 2024-03-10 08:47 | Outpatient (BNVA) | payer OTHER, SELFPAY | PROVIDERS: PCP Nurse Practitioner; Visit Provider Nurse Practitioner | DX: I10 Essential (primary) hypertension (principal); Z12.5 Encounter for screening for malignant neoplasm of prostate | CPT/HCPCS: 80053; 80061; 83036; 85025; G0103 ==

== ENCOUNTER → 2024-08-05 13:39 | Outpatient (BNVA) | payer MEDICARE, SELFPAY | PROVIDERS: PCP Nurse Practitioner; Visit Provider Nurse Practitioner Family | DX: I48.0 Paroxysmal atrial fibrillation (principal); Z79.01 Long term (current) use of anticoagulants; I11.0 Hypertensive heart disease with heart failure; I50.9 Heart failure, unspecified; I25.2 Old myocardial infarction; Z87.891 Personal history of nicotine dependence | CPT/HCPCS: 99213 ==

== ENCOUNTER → 2024-09-06 10:37 | Outpatient (BNVA) | payer MEDICARE, SELFPAY | PROVIDERS: PCP Nurse Practitioner; Visit Provider Nurse Practitioner | DX: I10 Essential (primary) hypertension (principal); Z12.5 Encounter for screening for malignant neoplasm of prostate | CPT/HCPCS: 80053; 80061; 85025; G0103 ==

== ENCOUNTER → 2024-09-21 14:19 | Outpatient (BNVA) | payer MEDICARE, SELFPAY | PROVIDERS: PCP Nurse Practitioner; Visit Provider Orthopaedic Surgery | DX: M54.41 Lumbago with sciatica, right side (principal); M54.42 Lumbago with sciatica, left side; G89.29 Other chronic pain | CPT/HCPCS: 72110; 99203 ==

== ENCOUNTER 2024-09-28 05:00 | Outpatient (RCR) | payer MEDICARE, SELFPAY | END 2024-10-28 23:59 | disposition home or self-care (01) | LOC: MPT 05:00 | PROVIDERS: PCP Nurse Practitioner; Visit Provider Orthopaedic Surgery | DX: M54.50 Low back pain, unspecified (principal); G89.29 Other chronic pain | CPT/HCPCS: 97110; 97140; 97162; G0283 ==

== ENCOUNTER → 2024-10-06 09:57 | Outpatient (BNVA) | payer MEDICARE, SELFPAY | PROVIDERS: PCP Nurse Practitioner; Visit Provider Nurse Practitioner | DX: I10 Essential (primary) hypertension (principal); R73.9 Hyperglycemia, unspecified | CPT/HCPCS: 80053; 83036 ==

== ENCOUNTER → 2024-10-19 09:49 | Outpatient (BNVA) | payer MEDICARE, SELFPAY | PROVIDERS: PCP Nurse Practitioner; Visit Provider Nurse Practitioner | DX: I10 Essential (primary) hypertension (principal); M54.9 Dorsalgia, unspecified | CPT/HCPCS: 80061; 81000; 87086 ==

== ENCOUNTER → 2024-11-02 13:40 | Outpatient (BNVA) | payer MEDICARE, SELFPAY | PROVIDERS: PCP Nurse Practitioner; Visit Provider Orthopaedic Surgery | DX: M54.41 Lumbago with sciatica, right side (principal); M54.42 Lumbago with sciatica, left side; G89.29 Other chronic pain | CPT/HCPCS: 99213 ==

== ENCOUNTER 2024-11-12 10:38 | Outpatient (CLI) | payer MEDICARE, SELFPAY ==
--- NOTE | 2024-11-12 11:00 | MR_ITS ---
WS: [id number] MRI LUMBAR SPINE NONCONTRAST HISTORY: back pain COMPARISON: Radiograph 09/21/2024 TECHNIQUE: Sagittal and axial multisequence imaging is submitted. Straightening and reversal of the normal lumbar lordosis centered at L2. No acute fracture. No edema within the vertebral bodies. Disc bases are narrowed and desiccated, most significant at L1-2 and L2-3. L2 retrolisthesis by 3.5 mm. Conus terminates normally at L1-2 disc level. L1-L2: Mild disc bulging. Very slight encroachment upon the traversing L2 nerve roots. L2-L3: Diffuse osteophytic ridging and marked annular disc bulging. Retrolisthesis of L2 contributing to moderate to severe central, subarticular recess and moderate foraminal stenosis. There is most significant contact on the traversing L3 nerve roots. Fluid in the facet joints. L3-L4: Mild annular disc bulging with osteophytic ridging, facet and ligamentum flavum disease. Mild central and bilateral subarticular recess stenosis. Severe LEFT and moderate RIGHT foraminal stenosis. L4-L5: Diffuse annular disc bulging with osteophytic ridging. Moderate bilateral facet joint arthritis. There is mild disc encroachment upon the subarticular recesses. Moderate bilateral foraminal stenosis, LEFT greater than RIGHT. Disc osteophyte contact on the exiting LEFT L4 nerve root. L5-S1: Diffuse disc bulging with a central protrusion. Mild disc contact on the S1 nerve roots, RIGHT greater than LEFT. Facet joint arthritis. Moderate sized RIGHT foraminal disc osteophyte complex. Severe RIGHT foraminal stenosis and contact on the RIGHT exiting L5 nerve root. Paravertebral soft tissues are negative. MR/MR lumbar spine wo con* [id number] IMPRESSION: 1. Advanced degenerative facet joint arthropathy and spondylosis in the lumbar spine. 2. Multiple levels of stenosis. 3. L2 retrolisthesis by 3.5 mm. 4. L2-3: Moderate to severe central, subarticular recess and moderate foramina l stenosis. Significant contact on the traversing L3 nerve roots. 5. L3-4: Severe LEFT and moderate RIGHT foraminal stenosis. Mild central and b ilateral subarticular recess stenosis. 6. L4-5: Moderate bilateral foraminal stenosis, LEFT greater than RIGHT. 7. L5-S1: Severe RIGHT foraminal stenosis due to a RIGHT foraminal disc osteop hyte completely effacing fat and contacting the exiting L5 nerve root. Mild dis c contact on the S1 nerve roots.
== END 2024-11-12 10:39 | disposition home or self-care (01) ==
LOC: RAD 10:40
PROVIDERS: PCP Nurse Practitioner; Visit Provider Orthopaedic Surgery
DX: M51.16 Intervertebral disc disorders with radiculopathy, lumbar region (principal); M43.16 Spondylolisthesis, lumbar region; M99.63 Osseous and subluxation stenosis of intervertebral foramina of lumbar region; M51.17 Intervertebral disc disorders with radiculopathy, lumbosacral region; M48.07 Spinal stenosis, lumbosacral region; M25.78 Osteophyte, vertebrae; M48.062 Spinal stenosis, lumbar region with neurogenic claudication; M46.96 Unspecified inflammatory spondylopathy, lumbar region
CPT/HCPCS: 72148

== ENCOUNTER → 2024-11-16 12:57 | Outpatient (BNVA) | payer MEDICARE, SELFPAY | PROVIDERS: PCP Nurse Practitioner; Visit Provider Orthopaedic Surgery | DX: M99.63 Osseous and subluxation stenosis of intervertebral foramina of lumbar region (principal); M43.16 Spondylolisthesis, lumbar region; G89.29 Other chronic pain | CPT/HCPCS: 99214 ==

== ENCOUNTER → 2024-11-23 09:05 | Outpatient (BNVA) | payer MEDICARE, SELFPAY | PROVIDERS: PCP Nurse Practitioner; Visit Provider Nurse Practitioner Family | DX: M54.9 Dorsalgia, unspecified (principal); M54.41 Lumbago with sciatica, right side; M54.42 Lumbago with sciatica, left side; G89.29 Other chronic pain | CPT/HCPCS: 99214 ==

== ENCOUNTER → 2024-11-30 08:55 | Outpatient (BNVA) | payer MEDICARE, SELFPAY | PROVIDERS: PCP Nurse Practitioner; Visit Provider Nurse Practitioner Family | DX: M79.18 Myalgia, other site (principal); M54.41 Lumbago with sciatica, right side; M54.42 Lumbago with sciatica, left side; G89.29 Other chronic pain | CPT/HCPCS: 20553; 99214; J1010; J3490 ==

== ENCOUNTER → 2024-12-14 11:03 | Outpatient (BNVA) | payer MEDICARE, SELFPAY | PROVIDERS: PCP Nurse Practitioner; Visit Provider Nurse Practitioner Family | DX: M54.41 Lumbago with sciatica, right side (principal); M54.42 Lumbago with sciatica, left side; G89.29 Other chronic pain | CPT/HCPCS: 99214 ==

== ENCOUNTER → 2024-12-23 13:28 | Outpatient (BNVA) | payer MEDICARE, SELFPAY | PROVIDERS: PCP Nurse Practitioner; Visit Provider Orthopaedic Surgery | DX: Z01.818 Encounter for other preprocedural examination (principal); G89.29 Other chronic pain; M48.061 Spinal stenosis, lumbar region without neurogenic claudication | CPT/HCPCS: 36415; 80053; 81001; 85025; 99214 ==

== ENCOUNTER 2025-01-03 12:10 | Outpatient (CLI) | payer MEDICARE, SELFPAY ==
--- NOTE | 2025-01-03 12:16 | XR_ITS ---
WS: [id number] Chest 2 views, 01/03/2025 Clinical Data: preoperative exam / hx COPD Comparison: Portable chest, 08/25/2022 Findings: No nodules, masses or effusions are seen. The heart is normal. The pulmonary vascularity is not increased. No pneumonia or pneumothorax is seen. The diaphragms are flattened. The aortic arch shows tortuosity. XR/XR chest 2V* [id number] Impression: Atherosclerosis and hyperinflation.
== END 2025-01-03 12:11 | disposition home or self-care (01) ==
LOC: RAD 12:13
PROVIDERS: PCP Nurse Practitioner; Visit Provider Family Medicine
DX: Z01.818 Encounter for other preprocedural examination (principal); J98.11 Atelectasis; I70.90 Unspecified atherosclerosis; Q25.46 Tortuous aortic arch; J98.4 Other disorders of lung
CPT/HCPCS: 71046

== ENCOUNTER 2025-01-12 11:00 | Day surgery (SDC) | payer MEDICARE, SELFPAY ==
[2025-01-12] VITALS (10 sets, daily range): BP systolic 108–135; BP diastolic 63–84; PULSE 64–79; RESP 14–16; TEMP 36.5–36.6; O2SAT 92–96; BMI 44.4
--- NOTE | 2025-01-12 12:44 | ANES.PREANE2 ---
Pre-Anesthetic Assessment Height/Weight: Height 1.91 m Weight 161.479 kg O2 Del Method Room Air 01/12/25 11:45 Preop Diagnosis: Lumbar stenosis with neurogenic claudication Operation Date: 01/12/25 12:45 Proposed Procedures p Spine Decompression Lumbar Decompression(Not Applicable) - Raffy Martinez, DO Familial anesthetic complications: None Was Beta Elena taken within 24 hours: N/A Was Clonidine taken within 24 hours: N/A Last intake: Intake Last Liquid Date 01/11/25 Last Liquid Time 23:00 Last Solid Date 01/11/25 Last Solid Time 22:00 Social No alcohol and No tobacco Exam alert, oriented x 3, clear to auscultation bilaterally and regular rate & rhythm Airway Mallampati: Class IV Dentition: other (no teeth) Pulmonary [place] CV/HEM Atrial Fibrillation, Congestive Heart Failure, Hypertension and Peripheral Vascular Disease Anesthetic Plan ASA status: 4 Anesthesia: General Risk of > 500 ml blood loss (7ml/kg in children): No Medications/Allergies Home Medications ?Medication ?Instructions ?Recorded ?Confirmed ?Last Taken ?Type sour arboleda extract 1,000 mg 1,000 mg PO DAILY 05/22/20 01/11/25 01/11/25 History capsule (Tart Arboleda Extract) vit C 250 mg-vit E 90 mg-zinc 40 1 tab PO DAILY 05/22/20 01/11/25 01/11/25 History mg-copper 1 [id number] capsule (PreserVision AREDS-2) acetaminophen 650 mg 1,300 mg PO DAILY PRN Pain 06/08/21 01/11/25 01/12/25 History tablet,extended release (Tylenol Arthritis Pain) cholecalciferol (vitamin D3) 50 50 mcg PO DAILY 06/07/22 01/11/25 01/11/25 History mcg (2,000 unit) chewable tablet ferrous sulfate 325 mg (65 mg 325 mg PO DAILY 06/07/22 01/11/25 12/21/24 History iron) tablet (Feosol) ascorbic acid (vitamin C) 1,000 mg 1 g PO DAILY 06/20/22 01/11/25 01/11/25 History capsule docusate sodium 100 mg capsule 100 mg PO DAILY 08/25/22 01/11/25 01/11/25 History bumetanide 1 mg tablet 1 mg PO BID #180 tabs 05/31/24 01/11/25 01/11/25 Rx metoprolol tartrate 25 mg tablet 25 mg PO BID 08/05/24 01/11/25 01/12/25 History potassium chloride 20 mEq 20 meq PO BID #180 tabs 09/06/24 01/11/25 01/11/25 Rx tablet,extended release(part/cryst) (Klor-Con M) Fish Oil 1,200 mg as directed DAILY 09/07/24 01/11/25 12/21/24 History apixaban 5 mg tablet (Eliquis) 5 mg PO BID@ #180 tabs 09/22/24 01/11/25 01/06/25 Rx gabapentin 300 mg capsule 300 mg PO TID #90 caps 11/30/24 01/11/25 01/12/25 Rx tizanidine 4 mg tablet 4 mg PO BID PRN muscle spasticity 12/14/24 01/11/25 01/12/25 Rx #60 tabs albuterol sulfate 90 mcg/actuation 2 puff inhalation Q6H PRN Wheezing 01/11/25 01/11/25 01/12/25 History aerosol inhaler allopurinol 100 mg tablet 100 mg PO DAILY 01/11/25 01/11/25 01/12/25 History amiodarone 200 mg tablet 200 mg PO DAILY 01/11/25 01/11/25 01/12/25 History atorvastatin 40 mg tablet 40 mg PO BEDTIME 01/11/25 01/11/25 01/11/25 History lisinopril 10 1 tab PO BID 01/11/25 01/11/25 01/11/25 History mg-hydrochlorothiazide 12.5 mg tablet Allergies Allergy/AdvReac Type Severity Reaction Status Date / Time No Known Allergies Allergy Verified 01/03/25 11:22 [facility] Anesthesia Medical History (Updated 01/03/25 @ 21:08 by Latayna Maravilla MD) Hypertension PVD (peripheral vascular disease) Gout Myocardial injury Congestive heart failure Chest pain Anticoagulation adequate with anticoagulant therapy Abnormal EKG Atrial fibrillation Hypercapnic respiratory failure Sleep apnea with hypersomnolence Morbid obesity due to excess calories Hypokalemia New onset of congestive heart failure Former smoker Retained myringotomy tube in left ear Arthritis Atrial fibrillation with rapid ventricular response Surgical History H/O hernia repair S/P left knee arthroscopy Family History Mother Cancer Liver cancer Social History Smoking and tobacco/nicotine status: never used tobacco/nicotine Alcohol intake: never Substance/Drug Use: never Data Anesthesia Cardiac Studies: Echocardiogram Ultrasound 05/01/20 Transesophageal Echocardiogram 08/25/20
--- NOTE | 2025-01-12 13:36 | W.PM.OPSUD ---
Surgery/Procedure H&P Update DATE OF PROCEDURE: January 12, 2025 DATE H&P PERFORMED: 12/23/24 H&P UPDATE INFORMATION: I have reviewed H&P completed within last 30 days, I have examined patient prior to procedure and No changes to prior documentation PREOP DIAGNOSIS: Lumbar stenosis with neurogenic claudication PLANNED PROCEDURE: Operation Date: 01/12/25 12:45 Proposed Procedures p Spine Decompression Lumbar Decompression(Not Applicable) - Raffy Martinez DO
[2025-01-12] MEDS: ceFAZolin 3,000 MG in sodium chloride 0.9% (plus) 100 ML 200 MG IV (13:49)
[2025-01-12] MEDS: lidocaine-epi 1% 20 mL INJ 10 ML INJECTION (14:49)
--- NOTE | 2025-01-12 15:31 | PM.OP ---
Operative Report Date of procedure: January 12, 2025 Pre-op diagnosis: Lumbar stenosis neurogenic claudication Post-op diagnosis: same Procedure done: 1. L2/3 laminectomy and partial facetectomy 2. L3/4 laminectomy partial facetectomy Surgeon: Raffy Martinez DO Estimated blood loss (mL): 15 Procedure: 1. L2/3 laminectomy and partial facetectomy 2. L3/4 laminectomy partial facetectomy Patient is brought to the operative suite. After undergoing anesthesia they are placed in the prone position. All areas of impingement are well padded. Patient is then prepped and draped in the normal sterile fashion. A skin incision is made over the L2/3 level. This is confirmed under c-arm guidance. A series of dilators are passed and the tubular retractor is docked on the L2 lamina. A bovie is used to clear the soft tissue off the lamina and the L 2/3 facet joint. A high speed palmira is then used to perform the laminectomy and take down the medial aspect of the L 2/3 facet joint. A kerrison rongeure was then used to take down the remaining lamina and smooth the edge of the laminectomy up to the point where the ligamentum flavum attaches. Attention was then brought to the medial aspect of the facet joint. The remaining medial aspect of the superior and inferior aspect of the facet joint were taken down with the kerrison from the pedicle of L 2 to L 3. The facet joint had significant hypertrophy. Attention was then brought to the Ligamentum Flavum. The ligament was taken down from the lamina of L 2 to L3 and out medially to the remaining facet joint. The ligament was thick. The dura was then exposed. The dura was in good repair. The L2 nerve was then traced with a curette out the L2/3 foramen and found to be adequately decompressed. The L3 nerve was traced with a curette around the L3 pedicle. The lateral recess was opened with a kerrison helping to further decompress the L3 nerve. Wound is then irrigated copiously with saline and surgiflo is used to stop any bleeding. The tubular retractor is removed A skin incision is made over the L3/4 level. This is confirmed under c-arm guidance. A series of dilators are passed and the tubular retractor is docked on the L3 lamina. A bovie is used to clear the soft tissue off the lamina and the L 3/4 facet joint. A high speed palmira is then used to perform the laminectomy and take down the medial aspect of the L 3/4 facet joint. A kerrison rongeure was then used to take down the remaining lamina and smooth the edge of the laminectomy up to the point where the ligamentum flavum attaches. Attention was then brought to the medial aspect of the facet joint. The remaining medial aspect of the superior and inferior aspect of the facet joint were taken down with the kerrison from the pedicle of L3 to L 4. The facet joint had significant hypertrophy. Attention was then brought to the Ligamentum Flavum. The ligament was taken down from the lamina of L3 to L4 and out medially to the remaining facet joint. The ligament was thick. The dura was then exposed. The dura was in good repair. The L3 nerve was then traced with a curette out the L3/4 foramen and found to be adequately decompressed. The L4 nerve was traced with a curette around the L4 pedicle. The lateral recess was opened with a kerrison helping to further decompress the L4 nerve. Wound is then irrigated copiously with saline and surgiflo is used to stop any bleeding. The tubular retractor is removed and the wound is closed with vicryl and monocryl suture. Steri strips were applied. A sterile dressing is then placed. Patient was then placed in the supine position and transferred to the PACU in stable condition.
[2025-01-12] MEDS: HYDROcodone-acetaminophen 5-325 mg Tablet 2 TAB PO (16:45)
--- NOTE | 2025-01-12 17:10 | ANE.PACU2 ---
Inpatient post-anesthesia follow up: Airway intact: Yes Vital signs: Temperature 97.7 F Pulse Rate 76 Respiratory Rate 16 Blood Pressure 133/74 Pulse Oximetry 96 Oxygen Delivery Me thod Room Air Oxygen Flow Rate Fraction of Inspir ed Oxygen Hydration adequate: Yes Nausea and vomiting: No Pain level: 1 Mental status: Baseline
== END 2025-01-12 17:10 | disposition home or self-care (01) ==
PROVIDERS: PCP Nurse Practitioner; Visit Provider Orthopaedic Surgery
PROC: (CPT 63005; 2025-01-12 12:45)
DX: M48.062 Spinal stenosis, lumbar region with neurogenic claudication (principal); I11.0 Hypertensive heart disease with heart failure; I50.9 Heart failure, unspecified; I73.9 Peripheral vascular disease, unspecified; G47.30 Sleep apnea, unspecified; E66.01 Morbid (severe) obesity due to excess calories; Z68.41 Body mass index [BMI] 40.0-44.9, adult; Z87.891 Personal history of nicotine dependence; I48.20 Chronic atrial fibrillation, unspecified; M10.9 Gout, unspecified
CPT/HCPCS: 63047; 63048; 76000; J0330; J0690; J1100; J1171; J1885; J2405; J2704; J3010; J3490; J7030; J9999

== ENCOUNTER → 2025-01-25 10:53 | Outpatient (BNVA) | payer MEDICARE, SELFPAY | PROVIDERS: PCP Nurse Practitioner; Visit Provider Orthopaedic Surgery | DX: Z98.890 Other specified postprocedural states (principal) | CPT/HCPCS: 99024 ==

== ENCOUNTER → 2025-02-14 14:00 | Outpatient (BNVA) | payer MEDICARE, SELFPAY | PROVIDERS: PCP Nurse Practitioner; Visit Provider Internal Medicine | DX: I48.91 Unspecified atrial fibrillation (principal); I11.0 Hypertensive heart disease with heart failure; I50.9 Heart failure, unspecified; Z79.01 Long term (current) use of anticoagulants; Z87.891 Personal history of nicotine dependence | CPT/HCPCS: 99214 ==

== ENCOUNTER → 2025-02-22 10:20 | Outpatient (BNVA) | payer MEDICARE, SELFPAY | PROVIDERS: PCP Nurse Practitioner; Visit Provider Orthopaedic Surgery | DX: Z98.890 Other specified postprocedural states (principal) | CPT/HCPCS: 99024 ==

== ENCOUNTER 2025-03-29 07:55 | Outpatient (RCR) | payer MEDICARE, SELFPAY | END 2025-03-30 23:59 | disposition home or self-care (01) | LOC: MPT 07:55 | PROVIDERS: Visit Provider Orthopaedic Surgery | DX: Z47.89 Encounter for other orthopedic aftercare (principal); M25.552 Pain in left hip | CPT/HCPCS: 97110; 97112; 97140; 97162; 97530 ==